=== PATIENT | female | born 1990 | race Caucasian/White ===

== ENCOUNTER → 2017-12-02 13:48 | Outpatient (CLI) | payer OTHER, SELFPAY ==
--- NOTE | 2017-12-02 13:52 | DI.RAD.S_ITS ---
PROCEDURE: XR LUMBAR SPINE MIN 4V INDICATIONS: L4-5 HNP with left lower extremity radiculopathy TECHNIQUE: 5 views of the lumbar spine were acquired. COMPARISON: None. FINDINGS: Bones: 5 nonrib-bearing vertebrae are present. There is mutli-level trace retrolithesis. There appears to be transitional anatomy with an lumbar like appearance of the first sacral vertebral body. There is moderate foraminal narrowing at L5-S1, mild to moderate at L4-5. Moderate to severe disc space narrowing at L4-5, L5-S1. No vertebral body compression fractures. No suspicious bony lesions. Soft tissues: Overlying bowel gas pattern is normal. No suspicious soft tissue calcifications. Oblique images: No pars defects. IMPRESSION: Degenerative changes are present at L4-5, L5-S1. Dictated by: Shelby Stacy M.D. on 12/02/2017 at 14:27 Approved by: Shelby Stacy M.D. on 12/02/2017 at 14:43
== END ==
PROVIDERS: PCP Internal Medicine; Visit Provider Physical Medicine & Rehabilitation
DX: M51.16 Intervertebral disc disorders with radiculopathy, lumbar region (principal); M51.36 Other intervertebral disc degeneration, lumbar region
CPT/HCPCS: 72110

== ENCOUNTER 2017-12-28 13:02 | Outpatient (CLI) | payer OTHER, SELFPAY ==
--- NOTE | 2017-12-28 | DI.RAD.S_ITS ---
PROCEDURE: PAIN L/S TRANSFORAMINAL INJECT INDICATIONS: RADICULOPATHY FINDINGS: Fluoroscopic spot filming was performed to verify placement of spinal needles at the left L4-5 level(s), as labeled on the films. Appropriate location(s) of the needle tip(s) was confirmed by injection of iodinated contrast. IMPRESSION: Successful left L4-5 needle tip localization for epidural steroid injection. Dictated by: Aric Sorensen M.D. on 12/28/2017 at 16:17 Approved by: Aric Sorensen M.D. on 12/28/2017 at 16:17
[2017-12-28 13:15] VITALS: BP 157/108; PULSE 77; RESP 16; TEMP 36.1; O2SAT 98
[2017-12-28 14:04] VITALS: BP 131/85; PULSE 77; RESP 16; O2SAT 100
[2017-12-28 14:09] VITALS: BP 148/92; PULSE 74; RESP 18; O2SAT 100
[2017-12-28 14:14] VITALS: BP 138/90; PULSE 73; RESP 16; O2SAT 100
--- NOTE | 2017-12-28 14:17 | P.PCN_ITS ---
Procedures Date/Time Date of procedure: 12/28/17 Time of procedure: 14:16 General Procedure description: PREOP DIAGNOSIS 1. FORMAINAL STENOSIS WITH LE SYMPTOMS POST OP DIAGNOSIS 1. FORMAINAL STENOSIS WITH LE SYMPTOMS PROCEDURES 1. FLUOROSCOPICALLY GUIDED CONTRAST CONTROLLED TRANSFORAMINAL EPIDURAL STEROID INJECTION - LEFT L4/5 PHYSICIAN: Angel Morgan DO INDICATIONS: Alannah is referred by MORGAN Garza for treatment of Foraminal Stenosis with Left LE Symptoms FINDINGS Foraminal Nerve Root Compression secondary to disc disease and facet hypertrophy DESCRIPTION OF PROCEDURE: Following denial of allergy and review of potential side effects and complications, including, but not necessarily limited to, infection, allergic reaction, local tissue breakdown, stroke, temporary or permanent nerve injury, paralysis, and possible , the patient indicated that the patient understood and agreed to proceed. An informed consent document was signed by the patient, witnessed by a nurse, and placed in the patient's chart. Additionally, other treatment options including medications, modalities, and physical therapy were reviewed with the patient. After review of previous anaesthesic history and IV conscious sedation the patient was deemed safe to proceed with todays procedure with IV conscious sedation as ASA class II designation. Safety time-out was performed to confirm patient ID, procedure to be performed and site of procedure. IV sedation was deemed not necessary during the course of the procedure while the patient remained responsive to all verbal commands In the prone position following sterile prep and drape of the lumbar region, the left L4/5 posterior neuroforamen was identified fluoroscopically. The skin was anesthetized via a 25-gauge 1.5-inch needle with 1% lidocaine solution. At this point, a 25-gauge 3.5-inch spinal needle was atraumatically introduced and advanced under fluoroscopic guidance through the posterior left L4/5 neuroforamen to approximately the anterior aspect of the canal. Depth was confirmed on lateral view. Following negative aspiration, injection of approximately 1.5 cc of Isovue 200 under live fluoroscopy in the AP view confirmed excellent flow along the nerve root, into the epidural space without vascular or intrathecal uptake observed Radiological data, including multiple fluoroscopic views of the lumbosacral spine, reveal a spinal needle at the left L4/5 posterior neuroforamen. Subsequent views show flow of contrast material flowing superiorly and inferiorly along the nerve root confirming epidural flow. Subsequently, a test dose of 1.5 cc of 1% lidocaine solution was administered and patient was observed for two minutes for signs or symptoms of complications , including abdominal pain, shortness of breath, bilateral upper or lower extremity weakness, nausea and vomiting, prior to steroid injection. At this point, a total of 3 cc or 20 mg of dexamethasone and 80mg Depo Medrol was injected without incident. The procedure tolerated the procedure well without signs or symptoms of complications prior to transfer to the recovery area continued monitoring without incident. The patient was then transferred to the recovery area where they were observed for an appropriate time after the injection. The patient reported a VAS score of 7 prior to the procedure and a post- procedure VAS of 0. Total Fluoroscopy Time: 20.9 seconds Total Conscious Sedation Time: 0min POST OP INSTRUCTIONS The patient was provided a Pain Log to continue to record their response to the target-specific procedure prior to follow-up visit with their referring physician. Additionally, specific post-injection care instructions and a contact number to our office were provided if concerns arise regarding possible complications associated with the procedure are suspected. Angel Morgan DO Complications: none
[2017-12-28 14:22] VITALS: BP 133/98; PULSE 88; RESP 16; O2SAT 100
[2017-12-28] MEDS: DEXAMETHASONE 10 MG/ML VIAL 20 MG INJ (14:31)
[2017-12-28] MEDS: methylPREDNISolone acetate 80 MG/ML VIAL INJ (14:31)
[2017-12-28] MEDS: BUPIVACAINE 0.25% (PF) VIAL 2 ML INJ (14:32)
[2017-12-28] MEDS: IOPAMIDOL 15 ML VIAL 3 ML INJ (14:32)
== END 2017-12-28 15:19 | disposition home or self-care (01) ==
LOC: RAD 13:02
PROVIDERS: PCP Internal Medicine; Visit Provider Physical Medicine & Rehabilitation
DX: M48.061 Spinal stenosis, lumbar region without neurogenic claudication (principal); M51.16 Intervertebral disc disorders with radiculopathy, lumbar region
CPT/HCPCS: 64483; J1040; J1100

== ENCOUNTER → 2018-01-27 09:10 | Outpatient (CLI) | payer OTHER, SELFPAY ==
[2018-01-27 09:57] LABS: Add Manual Diff / Slide Review NO; Basophils Percent Auto 0.3 % (0-2); Eosinophils Percent Auto 4.9 % (2-4); Hematocrit 39.7 % (36-46); Hemoglobin 13.1 g/dL (12.0-16.0); Lymphocytes Percent Auto 39.2 % (25-40); Mean Corpuscular HGB Conc 33.1 % (30-36); Mean Corpuscular Hemoglobin 27.1 PG (26-34); Mean Corpuscular Volume 81.9 fL (80-100); Monocytes Percent Auto 6.3 % (3-14); Neutrophils Absolute Auto 4400 /uL (3000-5900); Neutrophils Percent Auto 49.3 % (50-75); Platelet Count 317 X10^3/uL (150-400); Red Blood Cell Count 4.84 X10^6/uL (4.0-5.2); Red Cell Distribution Width 14.3 % (11.6-14.8)
[2018-01-27 10:12] LABS: Alanine Aminotransferase 26 IU/L (9-52); Albumin 4.5 g/dL (3.5-5.0); Albumin Globulin Ratio 1.4 (1.0-2.8); Alkaline Phosphatase 71 U/L (38-126); Aspartate Aminotransferase 21 IU/L (14-36); Bilirubin Total 0.3 mg/dL (0.2-1.3); Blood Urea Nitrogen 9 mg/dL (7-17); Calcium 9.1 mg/dL (8.4-10.2); Carbon Dioxide 31 mmol/L (22-32); Chloride 104 mmol/L (98-107); Cholesterol 174 mg/dL (140-199); Estimated Glomerular Filt Rate > 60.0 mL/min (>60); Globulin 3.2 g/dL (1.7-4.1); Glucose 99 mg/dL (70-100); HDL Cholesterol 49 mg/dL (40-60); HEMOLYSIS < 15 (0-50); LDL Cholesterol Calculated 108 mg/dL (<100); Potassium 4.1 mmol/L (3.4-5.1); Sodium 145 mmol/L (137-145); Total Protein 7.7 g/dL (6.3-8.2); Triglycerides 87 mg/dL (35-150)
[2018-01-27 11:01] LABS: Thyroid Stimulating Hormone 2.58 uIU/mL (0.47-4.68)
== END ==
PROVIDERS: PCP Internal Medicine; Visit Provider Internal Medicine
DX: N94.6 Dysmenorrhea, unspecified (principal); R63.5 Abnormal weight gain
CPT/HCPCS: 36415; 80053; 80061; 84443; 85025

== ENCOUNTER → 2018-03-03 15:00 | Outpatient (CLI) | payer OTHER, SELFPAY | PROVIDERS: PCP Internal Medicine | DX: Z23 Encounter for immunization (principal) | CPT/HCPCS: 90471; 90686 ==

== ENCOUNTER 2018-09-22 11:00 | Outpatient (RCR) | payer OTHER, SELFPAY ==
--- NOTE | 2018-03-18 12:34 | PT.OPPOC ---
Current Diagnoses Other intervertebral disc displacement, lumbar region (03/16/18) Radiculopathy, lumbosacral region (03/16/18) Provider Visit Care Team Role Provider Type MORGAN Zavala Primary Care Provider Advanced Special Education Tutor Specialty: Family Practice Address: [address] [place] [address], [id number] Email: [email or web address] Angel Morgan DO Attending Provider Physician Specialty: Physiatry Pain Management Address: [address] [place] [address], [phone] Email: Plan Of Care PT-OP-T Assessment and Plan Start: 03/16/18 10:32 Freq: Status: Active Protocol: Document 03/16/18 10:33 SAK (Rec: 03/16/18 16:38 SAK [id number]) Physical Therapy Assessment Rehab Potential Rehabilitation Potential Good Evaluation Complexity Number of Personal Factors/Comorbidities 1-2 Number of Body Systems Impaired 3 Clinical Presentation at Evaluation Evolving Impairments Impairments Activity Tolerance Pain Posture ROM Strength Goals 4 Impairment ROM and strength Short Term Goal (STG) Patient will be compliant with a HEP for purposes of ROM, and strengthening focused on core stabilization STG Duration 6 wks Business Integration Analyst Goal (LTG) Patient to demonstrate WNL ROM and strength in trunk and LE' s and demonstrate good dynamic lumbar stabilization statically and dynamically with function LTG Duration 3 months 3 Impairment Oswestry disability index score 26% Short Term Goal (STG) Decrease score to 13% STG Duration 6 wks Business Integration Analyst Goal (LTG) Decrease Oswestry score to no greater than 10% LTG Duration 3 months 2 Impairment Activity tolerance Short Term Goal (STG) Patient will be able to go grocery shopping without an increase in pain STG Duration 6 wks Senior Living Goal (LTG) Patient will be able to stand or walk for 1 hour without an increase in pain and resume prior activities without an increase in pain LTG Duration 3 months 1 Impairment pain Short Term Goal (STG) Decrease pain to no greater than 4/10 STG Duration 6 wks Senior Living Goal (LTG) Decrease pain to no greater than 2/10 LTG Duration 3 months Assessment Summary Assessment Patient is a 27 y/o female s/p fall in 2015 with persistent LBP with radicular symptoms. Imaging in November 2017 shows degenerative changes L4-5 and L5-S1, disc bulge L3-4 and L4- 5, transitional anatomy with sacralization of L5 bilateral neuroforaminal narrowing and mild spinal canal narrowing. Experienced some decrease in symptoms with manual traction, feel she may benefit from mechanical traction. Also feel she will benefit from PT for therapeutic exercises to address deficits in ROM, strength, core stabilization, and activity tolerance and instruction in a HEP, modalities and manual therapy techniques as indicated. Physical Therapy Plan Frequency and Duration Frequency of Treatment 2x/Week Duration of Treatment 3 months Plan of Care Start Date 03/16/18 Plan of Care End Date 06/16/18 Therapeutic Interventions Therapeutic Interventions Aquatic Therapy Home Exercise Program Manual Therapy Patient/Caregiver Education Self-Care/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 Soft Tissue Mobilization Taping Therapeutic Activities Therapeutic Exercises Modalities Cold Pack/Ice Massage Electric Stimulation Hot Packs Traction- Mechanical Ultrasound Next Visit Focus/Plan Next Note Type Treatment Note Next Visit Plan Ultrasound, mechanical traction. Initiate core strengthening, nerve glides. Plan of Care Dates Plan of Care Start Date 03/16/18 Plan of Care End Date 06/16/18 Please Sign and Return: I have reviewed this Plan of Care and certify that the skilled therapy services above are required to meet the patient?s needs. Physician Signature Date Printed Name and Credentials Clinical Instructor Signature Printed Name and Credentials
--- NOTE | 2018-03-18 12:34 | PT.OIE ---
Current Diagnoses Other intervertebral disc displacement, lumbar region (03/16/18) Radiculopathy, lumbosacral region (03/16/18) Past Medical History (Last Updated 02/04/18 @ 21:24 by Vivienne Vyas) Acne (Chronic ~2000) Eczema (Chronic) Headache (Chronic ~2010) History of recurrent ear infection (Chronic) Migraines (Chronic ~2010) Chicken pox (Resolved ~1995) Seasonal allergies (Resolved) Past Surgical History (Last Updated 02/04/18 @ 21:24 by Vivienne Vyas) Anesthesia (Resolved) History of third molar tooth extraction (Resolved ~2008) Provider Visit Care Team Role Provider Type MORGAN Zavala Primary Care Provider [facility] [employer] Service Worker Specialty: Family Practice Address: [address] [place] [id number] Email: [email or web address] Angel Morgan DO Attending Provider Physician Specialty: Physiatry Pain Management Address: [address] [place] [address], [id number] Email: Physical Therapy Initial Evaluation PT-OP-A Visit Information Start: 03/16/18 10:32 Freq: Status: Active Protocol: Document 03/16/18 10:33 SAK (Rec: 03/16/18 16:38 [facility] [id number]) Out-Patient Physical Therapy Visit Information Visit Information Visit Type Initial Evaluation Visit Note Visit Start Time 10:30 Visit Stop Time 11:30 Total Visit Minutes 55 Visit Number 1 Number of PSYCHOTHERAPIST Visits 0 Evaluation Information Evaluation Date 03/16/18 PT-OP-B Current Condition Start: 03/16/18 10:32 Freq: Status: Active Protocol: Document 03/16/18 10:33 SAK (Rec: 03/16/18 10:40 SAK [id number]) Current Condition History of Current Condition Onset Date 2015 Current Complaints persistent, function-limiting LB with radicular symptoms into left LE History of Current Condition Accident 2016; fell in shower with resulting LBP. Poor response to PT at that time. Worst pain with standing, walking. Unable to go grocery shopping or do other activity on feet without increase in pain. [place] [facility] a couple days ago on day of last steoid medication. Using heat, not ice. Activity level minimal. Prior Treatments and Tests Prior PT, had increasing left sided pain. Hadn't had imaging. MRI and x-ray; bulging disc L45. 2 injections, last one December 2017; somewhat helpful in decreasing numbness and tingling down left leg. Also taking oral steroids; just finished. Has had 2 chiropractort appointments; increase in right-sided symptoms. Future Testing and Treatments Planned No further physician appointments scheduled at this time. 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 Intensity 8 Scale Used Numeric (1 - 10) Description Chronic Radiating Shooting Tightness Frequency Frequent Radiating Location posterior left thigh to knee Pain Aggravating Factors Exercise Standing Walking Other Pain Alleviating Factors 90/90 position, squat, seated leaning forward Home Pain Medication Use Pain Medications Used No Pain Behaviors Pain Behaviors Facial Grimacing Guarding Wincing PT-OP-F Manual Assessment Start: 03/16/18 10:32 Freq: Status: Active Protocol: Document 03/16/18 10:33 SAK (Rec: 03/16/18 16:38 [facility] [id number]) Manual Assessments Soft Tissue Assessment Soft Tissue Mobility Assessment Tender to palpation left lumbar spine L3-S1 Other Manual Assessments Other Manual Assessments tender to palpation left lumbar region PT-OP-G Mobility & Gait Start: 03/16/18 10:32 Freq: Status: Active Protocol: Document 03/16/18 10:33 SAK (Rec: 03/16/18 16:38 [facility] [id number]) OP Mobility Evaluation Bed Mobility Rolling indep Supine to and from Sit indep Transfers Sit to Stand indep OP Gait Assessment Gait Gait Assistance Required: Independent Assistive Devices Assistive Device None Gait Deviations General Gait Pattern Antalgic Factors Limiting Gait Function Factors Limiting Gait Function Pain PT-OP-H Neuro Start: 03/16/18 10:32 Freq: Status: Active Protocol: Document 03/16/18 10:33 SAK (Rec: 03/16/18 16:38 [facility] [id number]) Sensation Evaluation Gross Sensation Gross Sensation WNL Comments Summary Comments denies n/t or weakness, denies drop foot or leg giving way PT-OP-J Posture/Palpation/Skin Start: 03/16/18 10:32 Freq: Status: Active Protocol: Document 03/16/18 10:33 SAK (Rec: 03/16/18 16:38 [facility] [id number]) Posture Evaluation Position Standing T-Spine Posture Flattened L-Spine Posture Increased Lordosis Pelvis Posture (L) Iliac Crest Superior Hip Posture (R) Externally Rotated PT-OP-K Range of Motion Start: 03/16/18 10:32 Freq: Status: Active Protocol: Document 03/16/18 10:33 SAK (Rec: 03/16/18 16:38 [facility] [id number]) Lumbar Spine Range of Motion Lumbar Spine Active Testing Position standing Flexion 40 Extension 10 Rotation Left 45 Rotation Right 45 Lateral Flexion Left 50 Lateral Flexion Right 50 ROM Limitations Pain Comments observable instability Hip Goniometric Range of Motion Hip Measured in Degrees Left Hip ROM WFL No Straight Leg Raise 30 Right Hip ROM WFL No Straight Leg Raise 40 Hip ROM Limitations Hip ROM Limitations Pain Comments pain both left and right with active SLR, muscle tightness with PSLR PT-OP-L Special Tests Start: 03/16/18 10:32 Freq: Status: Active Protocol: Document 03/16/18 10:33 SAK (Rec: 03/16/18 16:38 SAK [id number]) Special Tests Lumbar Spine Special Tests Manual Traction Test Results relieving Straight Leg Raise Test Results positive for pain Stork Test Test Results negative mireille Compression Test Results increased pain PT-OP-M Strength Start: 03/16/18 10:32 Freq: Status: Active Protocol: Document 03/16/18 10:33 SAK (Rec: 10/25/18 16:38 [facility] [id number]) Trunk Strength Trunk Manual Muscle Testing Testing Position Supine Core Stabilization poor Hip Strength Hip Manual Muscle Testing Left Flexion (L2) 4+ Good+ Extension (S1) 3+ Fair+ Abduction 4- Good- External Rotation 4- Good- Internal Rotation 4+ Good+ Right Flexion (L2) 4+ Good+ Extension (S1) 4- Good- Abduction 4- Good- External Rotation 4 Good Internal Rotation 4+ Good+ Knee Strength Knee Manual Muscle Testing Left Flexion (S2) 4 Good Extension (L3) 4+ Good+ Right Flexion (S2) 4 Good Extension (L3) 4+ Good+ Ankle/Foot Strength Ankle and Foot Manual Muscle Testing Left Dorsiflexion (L4) 5 Normal Plantarflexion (S1) 5 Normal Right Dorsiflexion (L4) 5 Normal Plantarflexion (S1) 5 Normal Toe Strength Toe Manual Muscle Testing Left Great Toe Extension 4+ Good+ Right Great Toe Extension 4+ Good+ PT-OP-Q Treatments Start: 03/16/18 10:32 Freq: Status: Active Protocol: Document 03/16/18 10:33 [facility] (Rec: 03/16/18 16:38 [facility] [id number]) Self-Care/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 Treatment Education Patient Education Pain Management Posture Other Education use of 90/90 positioning for pain relief PT-OP-R Modalities Start: 03/16/18 10:32 Freq: Status: Active Protocol: Document 03/16/18 10:33 [facility] (Rec: 03/16/18 16:38 [facility] [id number]) Electric Stimulation Electric Stimulation Interferential Current (IFC) Body Location bilateral lumbar paraspinals Duration (Minutes) 15 Intensity 15 Target/Sweep Sweep Combined With Heat/Cold Cold Pack Comments 90/90 PT-OP-T Assessment and Plan Start: 03/16/18 10:32 Freq: Status: Active Protocol: Document 03/16/18 10:33 [facility] (Rec: 03/16/18 16:38 [facility] [id number]) Physical Therapy Assessment Rehab Potential Rehabilitation Potential Good Evaluation Complexity Number of Personal Factors/Comorbidities 1-2 Number of Body Systems Impaired 3 Clinical Presentation at Evaluation Evolving Impairments Impairments Activity Tolerance Pain Posture ROM Strength Goals 4 Impairment ROM and strength Short Term Goal (STG) Patient will be compliant with a HEP for purposes of ROM, and strengthening focused on core stabilization STG Duration 6 wks [facility] Goal (LTG) Patient to demonstrate WNL ROM and strength in trunk and LE' s and demonstrate good dynamic lumbar stabilization statically and dynamically with function LTG Duration 3 months 3 Impairment Oswestry disability index score 26% Short Term Goal (STG) Decrease score to 13% STG Duration 6 wks [facility] Goal (LTG) Decrease Oswestry score to no greater than 10% LTG Duration 3 months 2 Impairment Activity tolerance Short Term Goal (STG) Patient will be able to go grocery shopping without an increase in pain STG Duration 6 wks [facility] Goal (LTG) Patient will be able to stand or walk for 1 hour without an increase in pain and resume prior activities without an increase in pain LTG Duration 3 months 1 Impairment pain Short Term Goal (STG) Decrease pain to no greater than 4/10 STG Duration 6 wks Structures Mechanic Goal (LTG) Decrease pain to no greater than 2/10 LTG Duration 3 months Assessment Summary Assessment Patient is a 27 y/o female s/p fall in 2015 with persistent LBP with radicular symptoms. Imaging in November 2017 shows degenerative changes L4-5 and L5-S1, disc bulge L3-4 and L4- 5, transitional anatomy with sacralization of L5 bilateral neuroforaminal narrowing and mild spinal canal narrowing. Experienced some decrease in symptoms with manual traction, feel she may benefit from mechanical traction. Also feel she will benefit from PT for therapeutic exercises to address deficits in ROM, strength, core stabilization, and activity tolerance and instruction in a HEP, modalities and manual therapy techniques as indicated. Physical Therapy Plan Frequency and Duration Frequency of Treatment 2x/Week Duration of Treatment 3 months Plan of Care Start Date 03/16/18 Plan of Care End Date 06/16/18 Therapeutic Interventions Therapeutic Interventions Aquatic Therapy Home Exercise Program Manual Therapy Patient/Caregiver Education Self-Care/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 Soft Tissue Mobilization Taping Therapeutic Activities Therapeutic Exercises Modalities Cold Pack/Ice Massage Electric Stimulation Hot Packs Traction- Mechanical Ultrasound Next Visit Focus/Plan Next Note Type Treatment Note Next Visit Plan Ultrasound, mechanical traction. Initiate core strengthening, nerve glides.
--- NOTE | 2018-03-24 09:45 | PT.OTN ---
Current Diagnoses Other intervertebral disc displacement, lumbar region (03/24/18) Radiculopathy, lumbosacral region (03/24/18) Physical Therapy Treatment Note PT-OP-A Visit Information Start: 03/16/18 10:32 Freq: Status: Active Protocol: Document 03/24/18 09:45 DLM (Rec: 03/24/18 17:34 DLM [id number]) Out-Patient Physical Therapy Visit Information Visit Information Visit Type Treatment Note Visit Start Time 09:45 Visit Stop Time 10:40 Total Visit Minutes 55 Visit Number 2 Number of [employer] Visits 0 Evaluation Information Evaluation Date 03/16/18 PT-OP-B Current Condition Start: 03/16/18 10:32 Freq: Status: Active Protocol: Document 03/16/18 10:33 SAK (Rec: 03/16/18 10:40 SAK [id number]) Current Condition History of Current Condition Onset Date 2015 Current Complaints persistent, function-limiting LB with radicular symptoms into left LE History of Current Condition Accident 2015; fell in shower with resulting LBP. Poor response to PT at that time. Worst pain with standing, walking. Unable to go grocery shopping or do other activity on feet without increase in pain. [place] best a couple days ago on day of last steoid medication. Using heat, not ice. Activity level minimal. Prior Treatments and Tests Prior PT, had increasing left sided pain. Hadn't had imaging. MRI and x-ray; bulging disc L45. 2 injections, last one December 2017; somewhat helpful in decreasing numbness and tingling down left leg. Also taking oral steroids; just finished. Has had 2 chiropractort appointments; increase in right-sided symptoms. Future Testing and Treatments Planned No further physician appointments scheduled at this time. 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 She has attended 2 visits. She will have an interruption in her PT visits due to her availability; will be out about a week. PT-OP-F Manual Assessment Start: 03/16/18 10:32 Freq: Status: Active Protocol: Document 03/16/18 10:33 SAK (Rec: 03/16/18 16:38 SAK [id number]) Manual Assessments Soft Tissue Assessment Soft Tissue Mobility Assessment Tender to palpation left lumbar spine L3-S1 Other Manual Assessments Other Manual Assessments tender to palpation left lumbar region PT-OP-G Mobility & Gait Start: 03/16/18 10:32 Freq: Status: Active Protocol: Document 03/16/18 10:33 SAK (Rec: 03/16/18 16:38 SAK [id number]) OP Mobility Evaluation Bed Mobility Rolling indep Supine to and from Sit indep Transfers Sit to Stand indep OP Gait Assessment Gait Gait Assistance Required: Independent Assistive Devices Assistive Device None Gait Deviations General Gait Pattern Antalgic Factors Limiting Gait Function Factors Limiting Gait Function Pain PT-OP-H Neuro Start: 03/16/18 10:32 Freq: Status: Active Protocol: Document 03/16/18 10:33 SAK (Rec: 03/16/18 16:38 SAK [id number]) Sensation Evaluation Gross Sensation Gross Sensation WNL Comments Summary Comments denies n/t or weakness, denies drop foot or leg giving way PT-OP-J Posture/Palpation/Skin Start: 03/16/18 10:32 Freq: Status: Active Protocol: Document 03/16/18 10:33 SAK (Rec: 03/16/18 16:38 SAK [id number]) Posture Evaluation Position Standing T-Spine Posture Flattened L-Spine Posture Increased Lordosis Pelvis Posture (L) Iliac Crest Superior Hip Posture (R) Externally Rotated PT-OP-K Range of Motion Start: 03/16/18 10:32 Freq: Status: Active Protocol: Document 03/16/18 10:33 SAK (Rec: 03/16/18 16:38 SAK [id number]) Lumbar Spine Range of Motion Lumbar Spine Active Testing Position standing Flexion 40 Extension 10 Rotation Left 45 Rotation Right 45 Lateral Flexion Left 50 Lateral Flexion Right 50 ROM Limitations Pain Comments observable instability Hip Goniometric Range of Motion Hip Measured in Degrees Left Hip ROM WFL No Straight Leg Raise 30 Right Hip ROM WFL No Straight Leg Raise 40 Hip ROM Limitations Hip ROM Limitations Pain Comments pain both left and right with active SLR, muscle tightness with PSLR PT-OP-L Special Tests Start: 03/16/18 10:32 Freq: Status: Active Protocol: Document 03/16/18 10:33 SAK (Rec: 03/16/18 16:38 SAK [id number]) Special Tests Lumbar Spine Special Tests Manual Traction Test Results relieving Straight Leg Raise Test Results positive for pain Stork Test Test Results negative mireille Compression Test Results increased pain PT-OP-M Strength Start: 03/16/18 10:32 Freq: Status: Active Protocol: Document 03/16/18 10:33 SAK (Rec: 03/16/18 16:38 [facility] [id number]) Trunk Strength Trunk Manual Muscle Testing Testing Position Supine Core Stabilization poor Hip Strength Hip Manual Muscle Testing Left Flexion (L2) 4+ Good+ Extension (S1) 3+ Fair+ Abduction 4- Good- External Rotation 4- Good- Internal Rotation 4+ Good+ Right Flexion (L2) 4+ Good+ Extension (S1) 4- Good- Abduction 4- Good- External Rotation 4 Good Internal Rotation 4+ Good+ Knee Strength Knee Manual Muscle Testing Left Flexion (S2) 4 Good Extension (L3) 4+ Good+ Right Flexion (S2) 4 Good Extension (L3) 4+ Good+ Ankle/Foot Strength Ankle and Foot Manual Muscle Testing Left Dorsiflexion (L4) 5 Normal Plantarflexion (S1) 5 Normal Right Dorsiflexion (L4) 5 Normal Plantarflexion (S1) 5 Normal Toe Strength Toe Manual Muscle Testing Left Great Toe Extension 4+ Good+ Right Great Toe Extension 4+ Good+ PT-OP-Q Treatments Start: 03/16/18 10:32 Freq: Status: Active Protocol: Document 03/24/18 09:45 DLM (Rec: 03/24/18 17:34 DLM [id number]) Therapeutic Exercises Supine Exercises 2 Supine Exercise Name Hooklying hip abduction Resistance L2 exercise band Reps/Minutes x 10 reps 1 Supine Exercise Name Hooklying single knee drop outs with core stabalization Side bilateral Reps/Minutes x 10 reps Lower trunk rotation Comments stopped exercise due to increase pain Single knee to chest Side bilateral Reps/Minutes x 5 reps Double Knee to Chest Reps/Minutes x 3 reps Self-Care/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 Treatment Education Patient Education Pain Management PT-OP-R Modalities Start: 03/16/18 10:32 Freq: Status: Active Protocol: Document 03/24/18 09:45 DLM (Rec: 03/24/18 17:34 DLM [id number]) Electric Stimulation Electric Stimulation Interferential Current (IFC) Body Location bilateral lumbar paraspinals Duration (Minutes) 15 Target/Sweep Sweep High/Low High Patient Position Hooklying Combined With Heat/Cold Cold Pack Comments 90/90 performed after traction Spinal Traction Traction Treatment Lumbar Method Mechanical Intermittent Patient Position Hooklying Force Applied (Pounds) 60 Intermittent Time On (Seconds) 30 Intermittent Time Off (Seconds) 10 Duration of Treatment (Minutes) 15 Heating Pad Applied No: pt declined Traction Treatment Comment 20-60 pounds intermittent PT-OP-T Assessment and Plan Start: 03/16/18 10:32 Freq: Status: Active Protocol: Document 03/24/18 09:45 DLM (Rec: 03/24/18 17:34 DL [id number]) Physical Therapy Assessment Impairments Impairments Activity Tolerance Functional Activities Pain Posture ROM Soft Tissue Mobility Strength Goals 4 Impairment ROM and strength Short Term Goal (STG) Patient will be compliant with a HEP for purposes of ROM, and strengthening focused on core stabilization STG Duration 6 wks Mcc Goal (LTG) Patient to demonstrate WNL ROM and strength in trunk and LE' s and demonstrate good dynamic lumbar stabilization statically and dynamically with function LTG Duration 3 months 3 Impairment Oswestry disability index score 26% Short Term Goal (STG) Decrease score to 13% STG Duration 6 wks Certified Medication Technician Goal (LTG) Decrease Oswestry score to no greater than 10% LTG Duration 3 months 2 Impairment Activity tolerance Short Term Goal (STG) Patient will be able to go grocery shopping without an increase in pain STG Duration 6 wks Certified Medication Technician Goal (LTG) Patient will be able to stand or walk for 1 hour without an increase in pain and resume prior activities without an increase in pain LTG Duration 3 months 1 Impairment pain Short Term Goal (STG) Decrease pain to no greater than 4/10 STG Duration 6 wks Certified Medication Technician Goal (LTG) Decrease pain to no greater than 2/10 LTG Duration 3 months Assessment Summary Assessment She tolerated treatment well over-all. Progressed her exercises slowly due to pain. She reports no increased pain with traction. She reports the Estim helps with the pain. Will need to make sure she has a HEP to do while she misses a week of therapy. Physical Therapy Plan Frequency and Duration Frequency of Treatment 2x/Week Duration of Treatment 3 months Plan of Care Start Date 03/16/18 Plan of Care End Date 06/16/18 Therapeutic Interventions Therapeutic Interventions Aquatic Therapy Home Exercise Program Manual Therapy Patient/Caregiver Education Self-Care/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 Soft Tissue Mobilization Taping Therapeutic Activities Therapeutic Exercises Modalities Cold Pack/Ice Massage Electric Stimulation Hot Packs Traction- Mechanical Ultrasound Next Visit Focus/Plan Next Note Type Treatment Note Next Visit Plan advance core strengthening, nerve glides
--- NOTE | 2018-03-28 15:15 | PT.OTN ---
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 Poor response to PT at that time. Worst pain with standing, walking. Unable to go grocery shopping or do other activity on feet without increase in pain. [place] best a couple days ago on day of last steoid medication. Using heat, not ice. Activity level minimal. Prior Treatments and Tests Prior PT, had increasing left sided pain. Hadn't had imaging. MRI and x-ray; bulging disc L45. 2 injections, last one December 2017; somewhat helpful in decreasing numbness and tingling down left leg. Also taking oral steroids; just finished. Has had 2 chiropractort appointments; increase in right-sided symptoms. Future Testing and Treatments Planned No further physician appointments scheduled at this time. 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 Doing stretches at home daily. PT-OP-F Manual Assessment Start: 03/16/18 10:32 Freq: Status: Active Protocol: Document 03/16/18 10:33 SAK (Rec: 03/16/18 16:38 SAK [id number]) Manual Assessments Soft Tissue Assessment Soft Tissue Mobility Assessment Tender to palpation left lumbar spine L3-S1 Other Manual Assessments Other Manual Assessments tender to palpation left lumbar region PT-OP-G Mobility & Gait Start: 03/16/18 10:32 Freq: Status: Active Protocol: Document 03/16/18 10:33 SAK (Rec: 03/16/18 16:38 SAK [id number]) OP Mobility Evaluation Bed Mobility Rolling indep Supine to and from Sit indep Transfers Sit to Stand indep OP Gait Assessment Gait Gait Assistance Required: Independent Assistive Devices Assistive Device None Gait Deviations General Gait Pattern Antalgic Factors Limiting Gait Function Factors Limiting Gait Function Pain PT-OP-H Neuro Start: 03/16/18 10:32 Freq: Status: Active Protocol: Document 03/16/18 10:33 SAK (Rec: 03/16/18 16:38 SAK [id number]) Sensation Evaluation Gross Sensation Gross Sensation WNL Comments Summary Comments denies n/t or weakness, denies drop foot or leg giving way PT-OP-J Posture/Palpation/Skin Start: 03/16/18 10:32 Freq: Status: Active Protocol: Document 03/16/18 10:33 SAK (Rec: 03/16/18 16:38 SAK [id number]) Posture Evaluation Position Standing T-Spine Posture Flattened L-Spine Posture Increased Lordosis Pelvis Posture (L) Iliac Crest Superior Hip Posture (R) Externally Rotated PT-OP-K Range of Motion Start: 03/16/18 10:32 Freq: Status: Active Protocol: Document 03/16/18 10:33 SAK (Rec: 03/16/18 16:38 SAK [id number]) Lumbar Spine Range of Motion Lumbar Spine Active Testing Position standing Flexion 40 Extension 10 Rotation Left 45 Rotation Right 45 Lateral Flexion Left 50 Lateral Flexion Right 50 ROM Limitations Pain Comments observable instability Hip Goniometric Range of Motion Hip Measured in Degrees Left Hip ROM WFL No Straight Leg Raise 30 Right Hip ROM WFL No Straight Leg Raise 40 Hip ROM Limitations Hip ROM Limitations Pain Comments pain both left and right with active SLR, muscle tightness with PSLR PT-OP-L Special Tests Start: 03/16/18 10:32 Freq: Status: Active Protocol: Document 03/16/18 10:33 SAK (Rec: 03/16/18 16:38 SAK [id number]) Special Tests Lumbar Spine Special Tests Manual Traction Test Results relieving Straight Leg Raise Test Results positive for pain Stork Test Test Results negative mireille Compression Test Results increased pain PT-OP-M Strength Start: 03/16/18 10:32 Freq: Status: Active Protocol: Document 03/16/18 10:33 SAK (Rec: 03/16/18 16:38 SAK [id number]) Trunk Strength Trunk Manual Muscle Testing Testing Position Supine Core Stabilization poor Hip Strength Hip Manual Muscle Testing Left Flexion (L2) 4+ Good+ Extension (S1) 3+ Fair+ Abduction 4- Good- External Rotation 4- Good- Internal Rotation 4+ Good+ Right Flexion (L2) 4+ Good+ Extension (S1) 4- Good- Abduction 4- Good- External Rotation 4 Good Internal Rotation 4+ Good+ Knee Strength Knee Manual Muscle Testing Left Flexion (S2) 4 Good Extension (L3) 4+ Good+ Right Flexion (S2) 4 Good Extension (L3) 4+ Good+ Ankle/Foot Strength Ankle and Foot Manual Muscle Testing Left Dorsiflexion (L4) 5 Normal Plantarflexion (S1) 5 Normal Right Dorsiflexion (L4) 5 Normal Plantarflexion (S1) 5 Normal Toe Strength Toe Manual Muscle Testing Left Great Toe Extension 4+ Good+ Right Great Toe Extension 4+ Good+ PT-OP-Q Treatments Start: 03/16/18 10:32 Freq: Status: Active Protocol: Document 03/28/18 15:01 SA (Rec: 03/28/18 15:15 SA [email or web address]) Therapeutic Exercises Supine Exercises pelvic tilts Reps/Minutes 10x Comments focus on control 2 Supine Exercise Name Hooklying hip abduction Resistance L2 exercise band Reps/Minutes x 10 reps 1 Supine Exercise Name Hooklying single knee drop outs with core stabalization Side bilateral Reps/Minutes x 10 reps Single knee to chest Side bilateral Reps/Minutes x 5 reps Double Knee to Chest Reps/Minutes x 3 reps Sidelying Exercises clamshells Side bilateral Reps/Minutes 15 x each PT-OP-R Modalities Start: 03/16/18 10:32 Freq: Status: Active Protocol: Document 03/28/18 15:01 (Rec: 03/28/18 15:15 [email or web address]) Electric Stimulation Electric Stimulation Interferential Current (IFC) Body Location bilateral lumbar paraspinals Duration (Minutes) 15 Target/Sweep Sweep High/Low High Patient Position Supine Combined With Heat/Cold Cold Pack Comments 90/90 completed after traction Spinal Traction Traction Treatment Lumbar Method Mechanical Intermittent Patient Position Hooklying Force Applied (Pounds) 60 Intermittent Time On (Seconds) 30 Intermittent Time Off (Seconds) 10 Duration of Treatment (Minutes) 15 Traction Treatment Comment 20-60 pounds intermittent PT-OP-T Assessment and Plan Start: 03/16/18 10:32 Freq: Status: Active Protocol: Document 03/28/18 15:01 (Rec: 03/28/18 15:15 [email or web address]) Physical Therapy Assessment Progress Towards Goals Progress Towards Goals Progressing Toward Goals Assessment Summary Assessment Slow exercise progression using pain as guide and educated to stay within tolerance. Re-assess traction next visit. Pt to monitor symptoms after treatment today and report back next visit. Physical Therapy Plan Next Visit Focus/Plan Next Note Type Treatment Note Next Visit Plan Response to mechanical/lumbar traction, progress core strengthening and response to HEP.
--- NOTE | 2018-04-11 16:04 | PT.OTN ---
Current Diagnoses Other intervertebral disc displacement, lumbar region (04/11/18) Radiculopathy, lumbosacral region (04/11/18) Physical Therapy Treatment Note PT-OP-A Visit Information Start: 03/16/18 10:32 Freq: Status: Active Protocol: Document 04/11/18 15:15 DCW (Rec: 04/11/18 16:04 DCW [id number]) Out-Patient Physical Therapy Visit Information Visit Information Visit Type Treatment Note Visit Start Time 15:15 Visit Stop Time 16:00 Total Visit Minutes 50 Visit Number 4 Number of ELECTRICAL ACCESSORIES ASSEMBLER Visits 0 Evaluation Information Evaluation Date 03/16/18 PT-OP-B Current Condition Start: 03/16/18 10:32 Freq: Status: Active Protocol: Document 03/16/18 10:33 SAK (Rec: 03/16/18 10:40 SAK [id number]) Current Condition History of Current Condition Onset Date 2015 Current Complaints persistent, function-limiting LB with radicular symptoms into left LE History of Current Condition Accident 2015; fell in shower with resulting LBP. Poor response to PT at that time. Worst pain with standing, walking. Unable to go grocery shopping or do other activity on feet without increase in pain. [place] best a couple days ago on day of last steoid medication. Using heat, not ice. Activity level minimal. Prior Treatments and Tests Prior PT, had increasing left sided pain. Hadn't had imaging. MRI and x-ray; bulging disc L45. 2 injections, last one December 2017; somewhat helpful in decreasing numbness and tingling down left leg. Also taking oral steroids; just finished. Has had 2 chiropractort appointments; increase in right-sided symptoms. Future Testing and Treatments Planned No further physician appointments scheduled at this time. 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 Pt states she would still like to try it again. PT-OP-F Manual Assessment Start: 03/16/18 10:32 Freq: Status: Active Protocol: Document 03/16/18 10:33 SAK (Rec: 03/16/18 16:38 SAK [id number]) Manual Assessments Soft Tissue Assessment Soft Tissue Mobility Assessment Tender to palpation left lumbar spine L3-S1 Other Manual Assessments Other Manual Assessments tender to palpation left lumbar region PT-OP-G Mobility & Gait Start: 03/16/18 10:32 Freq: Status: Active Protocol: Document 03/16/18 10:33 SAK (Rec: 03/16/18 16:38 SAK [id number]) OP Mobility Evaluation Bed Mobility Rolling indep Supine to and from Sit indep Transfers Sit to Stand indep OP Gait Assessment Gait Gait Assistance Required: Independent Assistive Devices Assistive Device None Gait Deviations General Gait Pattern Antalgic Factors Limiting Gait Function Factors Limiting Gait Function Pain PT-OP-H Neuro Start: 03/16/18 10:32 Freq: Status: Active Protocol: Document 03/16/18 10:33 SAK (Rec: 03/16/18 16:38 SAK [id number]) Sensation Evaluation Gross Sensation Gross Sensation WNL Comments Summary Comments denies n/t or weakness, denies drop foot or leg giving way PT-OP-J Posture/Palpation/Skin Start: 03/16/18 10:32 Freq: Status: Active Protocol: Document 03/16/18 10:33 SAK (Rec: 03/16/18 16:38 SAK [id number]) Posture Evaluation Position Standing T-Spine Posture Flattened L-Spine Posture Increased Lordosis Pelvis Posture (L) Iliac Crest Superior Hip Posture (R) Externally Rotated PT-OP-K Range of Motion Start: 03/16/18 10:32 Freq: Status: Active Protocol: Document 03/16/18 10:33 SAK (Rec: 03/16/18 16:38 SAK [id number]) Lumbar Spine Range of Motion Lumbar Spine Active Testing Position standing Flexion 40 Extension 10 Rotation Left 45 Rotation Right 45 Lateral Flexion Left 50 Lateral Flexion Right 50 ROM Limitations Pain Comments observable instability Hip Goniometric Range of Motion Hip Measured in Degrees Left Hip ROM WFL No Straight Leg Raise 30 Right Hip ROM WFL No Straight Leg Raise 40 Hip ROM Limitations Hip ROM Limitations Pain Comments pain both left and right with active SLR, muscle tightness with PSLR PT-OP-L Special Tests Start: 03/16/18 10:32 Freq: Status: Active Protocol: Document 03/16/18 10:33 SAK (Rec: 03/16/18 16:38 SAK [id number]) Special Tests Lumbar Spine Special Tests Manual Traction Test Results relieving Straight Leg Raise Test Results positive for pain Stork Test Test Results negative mireille Compression Test Results increased pain PT-OP-M Strength Start: 03/16/18 10:32 Freq: Status: Active Protocol: Document 03/16/18 10:33 SAK (Rec: 03/16/18 16:38 SAK [id number]) Trunk Strength Trunk Manual Muscle Testing Testing Position Supine Core Stabilization poor Hip Strength Hip Manual Muscle Testing Left Flexion (L2) 4+ Good+ Extension (S1) 3+ Fair+ Abduction 4- Good- External Rotation 4- Good- Internal Rotation 4+ Good+ Right Flexion (L2) 4+ Good+ Extension (S1) 4- Good- Abduction 4- Good- External Rotation 4 Good Internal Rotation 4+ Good+ Knee Strength Knee Manual Muscle Testing Left Flexion (S2) 4 Good Extension (L3) 4+ Good+ Right Flexion (S2) 4 Good Extension (L3) 4+ Good+ Ankle/Foot Strength Ankle and Foot Manual Muscle Testing Left Dorsiflexion (L4) 5 Normal Plantarflexion (S1) 5 Normal Right Dorsiflexion (L4) 5 Normal Plantarflexion (S1) 5 Normal Toe Strength Toe Manual Muscle Testing Left Great Toe Extension 4+ Good+ Right Great Toe Extension 4+ Good+ PT-OP-Q Treatments Start: 03/16/18 10:32 Freq: Status: Active Protocol: Document 04/11/18 15:15 DCW (Rec: 04/11/18 16:04 DCW [id number]) Gym Equipment Therapeutic Ball Trunk Rotation Exercise Details Trunk Rotation vs T-band resistance Ball Size/Color Green - 65 cm Lv 1 T-band Body Position Sitting Pelvic circles Exercise Details Pelvic tilts, lateral flexion, and circles Ball Size/Color Green - 65 cm Body Position Sitting Therapeutic Exercises Supine Exercises Bridging Supine Exercise Name Bridging in hooklying Comments pain in R hip Sidelying Exercises Hip Abduction Sidelying Exercise Name Sidelying hip abduction Side bilateral PT-OP-R Modalities Start: 03/16/18 10:32 Freq: Status: Active Protocol: Document 04/11/18 15:15 DCW (Rec: 04/11/18 16:04 DCW [id number]) Electric Stimulation Electric Stimulation Interferential Current (IFC) Body Location bilateral lumbar paraspinals Duration (Minutes) 15 Target/Sweep Sweep High/Low High Patient Position Supine Combined With Heat/Cold Cold Pack Comments 90/90 completed after traction Spinal Traction Traction Treatment Lumbar Method Mechanical Intermittent Patient Position Hooklying Force Applied (Pounds) 65 Intermittent Time On (Seconds) 30 Intermittent Time Off (Seconds) 10 Duration of Treatment (Minutes) 15 Traction Treatment Comment 20-65 pounds intermittent PT-OP-T Assessment and Plan Start: 03/16/18 10:32 Freq: Status: Active Protocol: Document 04/11/18 15:15 DCW (Rec: 04/11/18 16:04 DCW [id number]) Physical Therapy Assessment Impairments Impairments Activity Tolerance Functional Activities Pain Posture ROM Soft Tissue Mobility Strength Goals 4 Impairment ROM and strength Short Term Goal (STG) Patient will be compliant with a HEP for purposes of ROM, and strengthening focused on core stabilization STG Duration 6 wks Usp Goal (LTG) Patient to demonstrate WNL ROM and strength in trunk and LE' s and demonstrate good dynamic lumbar stabilization statically and dynamically with function LTG Duration 3 months 3 Impairment Oswestry disability index score 26% Short Term Goal (STG) Decrease score to 13% STG Duration 6 wks Usp Goal (LTG) Decrease Oswestry score to no greater than 10% LTG Duration 3 months 2 Impairment Activity tolerance Short Term Goal (STG) Patient will be able to go grocery shopping without an increase in pain STG Duration 6 wks Farm Operations Manager Goal (LTG) Patient will be able to stand or walk for 1 hour without an increase in pain and resume prior activities without an increase in pain LTG Duration 3 months 1 Impairment pain Short Term Goal (STG) Decrease pain to no greater than 4/10 STG Duration 6 wks Usp Goal (LTG) Decrease pain to no greater than 2/10 LTG Duration 3 months Assessment Summary Assessment Pt tolerated new exercises with minimal complaints of pain, although continued slow progression due to history of increased pain. Physical Therapy Plan Frequency and Duration Frequency of Treatment 2x/Week Duration of Treatment 3 months Plan of Care Start Date 03/16/18 Plan of Care End Date 06/16/18 Therapeutic Interventions Therapeutic Interventions Aquatic Therapy Home Exercise Program Manual Therapy Patient/Caregiver Education Self-Care/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 Soft Tissue Mobilization Taping Therapeutic Activities Therapeutic Exercises Modalities Cold Pack/Ice Massage Electric Stimulation Hot Packs Traction- Mechanical Ultrasound Next Visit Focus/Plan Next Note Type Treatment Note Next Visit Plan advance core strengthening, nerve glides
--- NOTE | 2018-04-19 14:39 | PT.OTN ---
Current Diagnoses Other intervertebral disc displacement, lumbar region (04/19/18) Radiculopathy, lumbosacral region (04/19/18) Physical Therapy Treatment Note PT-OP-A Visit Information Start: 03/16/18 10:32 Freq: Status: Active Protocol: Document 04/19/18 09:05 LEE (Rec: 04/19/18 14:38 SAK [id number]) Out-Patient Physical Therapy Visit Information Visit Information Visit Type Treatment Note Visit Start Time 09:05 Visit Stop Time 10:00 Total Visit Minutes 55 Visit Number 5 Number of SKI LIFT OPERATOR Visits 0 Evaluation Information Evaluation Date 03/16/18 PT-OP-B Current Condition Start: 03/16/18 10:32 Freq: Status: Active Protocol: Document 03/16/18 10:33 SAK (Rec: 03/16/18 10:40 SAK [id number]) Current Condition History of Current Condition Onset Date 2015 Current Complaints persistent, function-limiting LB with radicular symptoms into left LE History of Current Condition Accident 2015; fell in shower with resulting LBP. Poor response to PT at that time. Worst pain with standing, walking. Unable to go grocery shopping or do other activity on feet without increase in pain. [place] best a couple days ago on day of last steoid medication. Using heat, not ice. Activity level minimal. Prior Treatments and Tests Prior PT, had increasing left sided pain. Hadn't had imaging. MRI and x-ray; bulging disc L45. 2 injections, last one December 2017; somewhat helpful in decreasing numbness and tingling down left leg. Also taking oral steroids; just finished. Has had 2 chiropractort appointments; increase in right-sided symptoms. Future Testing and Treatments Planned No further physician appointments scheduled at this time. 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 A little confused about what exercises to do at home. PT-OP-F Manual Assessment Start: 03/16/18 10:32 Freq: Status: Active Protocol: Document 03/16/18 10:33 SAK (Rec: 03/16/18 16:38 [facility] [id number]) Manual Assessments Soft Tissue Assessment Soft Tissue Mobility Assessment Tender to palpation left lumbar spine L3-S1 Other Manual Assessments Other Manual Assessments tender to palpation left lumbar region PT-OP-G Mobility & Gait Start: 03/16/18 10:32 Freq: Status: Active Protocol: Document 03/16/18 10:33 SAK (Rec: 03/16/18 16:38 [facility] [id number]) OP Mobility Evaluation Bed Mobility Rolling indep Supine to and from Sit indep Transfers Sit to Stand indep OP Gait Assessment Gait Gait Assistance Required: Independent Assistive Devices Assistive Device None Gait Deviations General Gait Pattern Antalgic Factors Limiting Gait Function Factors Limiting Gait Function Pain PT-OP-H Neuro Start: 03/16/18 10:32 Freq: Status: Active Protocol: Document 03/16/18 10:33 SAK (Rec: 03/16/18 16:38 [facility] [id number]) Sensation Evaluation Gross Sensation Gross Sensation WNL Comments Summary Comments denies n/t or weakness, denies drop foot or leg giving way PT-OP-J Posture/Palpation/Skin Start: 03/16/18 10:32 Freq: Status: Active Protocol: Document 03/16/18 10:33 SAK (Rec: 03/16/18 16:38 [facility] [id number]) Posture Evaluation Position Standing T-Spine Posture Flattened L-Spine Posture Increased Lordosis Pelvis Posture (L) Iliac Crest Superior Hip Posture (R) Externally Rotated PT-OP-K Range of Motion Start: 03/16/18 10:32 Freq: Status: Active Protocol: Document 03/16/18 10:33 SAK (Rec: 03/16/18 16:38 [facility] [id number]) Lumbar Spine Range of Motion Lumbar Spine Active Testing Position standing Flexion 40 Extension 10 Rotation Left 45 Rotation Right 45 Lateral Flexion Left 50 Lateral Flexion Right 50 ROM Limitations Pain Comments observable instability Hip Goniometric Range of Motion Hip Measured in Degrees Left Hip ROM WFL No Straight Leg Raise 30 Right Hip ROM WFL No Straight Leg Raise 40 Hip ROM Limitations Hip ROM Limitations Pain Comments pain both left and right with active SLR, muscle tightness with PSLR PT-OP-L Special Tests Start: 03/16/18 10:32 Freq: Status: Active Protocol: Document 03/16/18 10:33 [facility] (Rec: 03/16/18 16:38 [facility] [id number]) Special Tests Lumbar Spine Special Tests Manual Traction Test Results relieving Straight Leg Raise Test Results positive for pain Stork Test Test Results negative mireille Compression Test Results increased pain PT-OP-M Strength Start: 03/16/18 10:32 Freq: Status: Active Protocol: Document 03/16/18 10:33 [facility] (Rec: 03/16/18 16:38 [facility] [id number]) Trunk Strength Trunk Manual Muscle Testing Testing Position Supine Core Stabilization poor Hip Strength Hip Manual Muscle Testing Left Flexion (L2) 4+ Good+ Extension (S1) 3+ Fair+ Abduction 4- Good- External Rotation 4- Good- Internal Rotation 4+ Good+ Right Flexion (L2) 4+ Good+ Extension (S1) 4- Good- Abduction 4- Good- External Rotation 4 Good Internal Rotation 4+ Good+ Knee Strength Knee Manual Muscle Testing Left Flexion (S2) 4 Good Extension (L3) 4+ Good+ Right Flexion (S2) 4 Good Extension (L3) 4+ Good+ Ankle/Foot Strength Ankle and Foot Manual Muscle Testing Left Dorsiflexion (L4) 5 Normal Plantarflexion (S1) 5 Normal Right Dorsiflexion (L4) 5 Normal Plantarflexion (S1) 5 Normal Toe Strength Toe Manual Muscle Testing Left Great Toe Extension 4+ Good+ Right Great Toe Extension 4+ Good+ PT-OP-Q Treatments Start: 03/16/18 10:32 Freq: Status: Active Protocol: Document 04/19/18 09:05 [facility] (Rec: 04/19/18 14:38 [facility] [id number]) Cardio Equipment Recumbent Stepper (Sci-Fit) Duration (Minutes) 8 Resistance 2 Other emphasis on neutral positioning Therapeutic Exercises Supine Exercises 90:90 push/pull isometric Reps/Minutes 5x piriformis stretch Reps/Minutes 2x postural isometric Reps/Minutes 8x TrA with hip ab/ER Reps/Minutes L2 TB TrA with pillow squeeze Reps/Minutes 10x Mo stretch Reps/Minutes 2x Bridging Supine Exercise Name bridging Comments painfree ROM Single knee to chest Side bilateral Reps/Minutes x 5 reps Double Knee to Chest Reps/Minutes x 3 reps Sidelying Exercises clamshells Side bilateral Reps/Minutes 10x Comments pain-free ROM Sitting Exercises piriformis stretch Reps/Minutes 2x Standing Exercises HS stretch Equipment Used stair Reps/Minutes 2x Comments neutral and with IR HC stretch Equipment Used stair Reps/Minutes 2x Comments neutral and with IR PT-OP-R Modalities Start: 03/16/18 10:32 Freq: Status: Active Protocol: Document 04/19/18 09:05 [facility] (Rec: 04/19/18 14:39 [facility] [id number]) Electric Stimulation Electric Stimulation Interferential Current (IFC) Body Location bilateral lumbar paraspinals Duration (Minutes) 15 Target/Sweep Sweep High/Low High Patient Position Supine Combined With Heat/Cold Cold Pack Comments 90/90 PT-OP-T Assessment and Plan Start: 03/16/18 10:32 Freq: Status: Active Protocol: Document 04/19/18 09:05 [facility] (Rec: 04/19/18 14:38 [facility] [id number]) Physical Therapy Assessment Impairments Impairments Activity Tolerance Functional Activities Pain Posture ROM Soft Tissue Mobility Strength Goals 4 Impairment ROM and strength Short Term Goal (STG) Patient will be compliant with a HEP for purposes of ROM, and strengthening focused on core stabilization STG Duration 6 wks [facility] Goal (LTG) Patient to demonstrate WNL ROM and strength in trunk and LE' s and demonstrate good dynamic lumbar stabilization statically and dynamically with function LTG Duration 3 months 3 Impairment Oswestry disability index score 26% Short Term Goal (STG) Decrease score to 13% STG Duration 6 wks Exchange Operator Goal (LTG) Decrease Oswestry score to no greater than 10% LTG Duration 3 months 2 Impairment Activity tolerance Short Term Goal (STG) Patient will be able to go grocery shopping without an increase in pain STG Duration 6 wks [facility] Goal (LTG) Patient will be able to stand or walk for 1 hour without an increase in pain and resume prior activities without an increase in pain LTG Duration 3 months 1 Impairment pain Short Term Goal (STG) Decrease pain to no greater than 4/10 STG Duration 6 wks Exchange Operator Goal (LTG) Decrease pain to no greater than 2/10 LTG Duration 3 months Assessment Summary Assessment Patient demonstrating improved awareness of core stabilization musculature and need to exercise in pain-free ROM. Today was last scheduled appointment so was issued written HEP and plans to schedule more appointments; understands it may take awhile to get back into therapy. Physical Therapy Plan Frequency and Duration Frequency of Treatment 2x/Week Duration of Treatment 3 months Plan of Care Start Date 03/16/18 Plan of Care End Date 06/16/18 Therapeutic Interventions Therapeutic Interventions Aquatic Therapy Home Exercise Program Manual Therapy Patient/Caregiver Education Self-Care/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 Soft Tissue Mobilization Taping Therapeutic Activities Therapeutic Exercises Modalities Cold Pack/Ice Massage Electric Stimulation Hot Packs Traction- Mechanical Ultrasound Next Visit Focus/Plan Next Note Type Treatment Note Next Visit Plan nerve glides, progress stabilization and stretching ex, consider aquatic therapy ( discussed today), manual therapy, modalities PRN.
--- NOTE | 2018-05-10 10:09 | PT.OTN ---
Current Diagnoses Other intervertebral disc displacement, lumbar region (05/10/18) Radiculopathy, lumbosacral region (05/10/18) Physical Therapy Treatment Note PT-OP-A Visit Information Start: 03/16/18 10:32 Freq: Status: Active Protocol: Document 05/10/18 08:14 SAK (Rec: 05/10/18 09:04 SAK [id number]) Out-Patient Physical Therapy Visit Information Visit Information Visit Type Treatment Note Visit Start Time 09:05 Visit Stop Time 10:00 Total Visit Minutes 55 Visit Number 6 Number of FOAM CASTER Visits 0 Evaluation Information Evaluation Date 03/16/18 PT-OP-B Current Condition Start: 03/16/18 10:32 Freq: Status: Active Protocol: Document 03/16/18 10:33 SAK (Rec: 03/16/18 10:40 SAK [id number]) Current Condition History of Current Condition Onset Date 2015 Current Complaints persistent, function-limiting LB with radicular symptoms into left LE History of Current Condition Accident 2015; fell in shower with resulting LBP. Poor response to PT at that time. Worst pain with standing, walking. Unable to go grocery shopping or do other activity on feet without increase in pain. [place] a couple days ago on day of last steoid medication. Using heat, not ice. Activity level minimal. Prior Treatments and Tests Prior PT, had increasing left sided pain. Hadn't had imaging. MRI and x-ray; bulging disc L45. 2 injections, last one December 2017; somewhat helpful in decreasing numbness and tingling down left leg. Also taking oral steroids; just finished. Has had 2 chiropractort appointments; increase in right-sided symptoms. Future Testing and Treatments Planned No further physician appointments scheduled at this time. 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 Fair compliance to HEP. Noticing less pain with walking, less limping. Trying to pay more attention to her core. PT-OP-F Manual Assessment Start: 03/16/18 10:32 Freq: Status: Active Protocol: Document 03/16/18 10:33 SAK (Rec: 03/16/18 16:38 [facility] [id number]) Manual Assessments Soft Tissue Assessment Soft Tissue Mobility Assessment Tender to palpation left lumbar spine L3-S1 Other Manual Assessments Other Manual Assessments tender to palpation left lumbar region PT-OP-G Mobility & Gait Start: 03/16/18 10:32 Freq: Status: Active Protocol: Document 03/16/18 10:33 SAK (Rec: 03/16/18 16:38 [facility] [id number]) OP Mobility Evaluation Bed Mobility Rolling indep Supine to and from Sit indep Transfers Sit to Stand indep OP Gait Assessment Gait Gait Assistance Required: Independent Assistive Devices Assistive Device None Gait Deviations General Gait Pattern Antalgic Factors Limiting Gait Function Factors Limiting Gait Function Pain PT-OP-H Neuro Start: 03/16/18 10:32 Freq: Status: Active Protocol: Document 03/16/18 10:33 SAK (Rec: 03/16/18 16:38 [facility] [id number]) Sensation Evaluation Gross Sensation Gross Sensation WNL Comments Summary Comments denies n/t or weakness, denies drop foot or leg giving way PT-OP-J Posture/Palpation/Skin Start: 03/16/18 10:32 Freq: Status: Active Protocol: Document 03/16/18 10:33 SAK (Rec: 03/16/18 16:38 [facility] [id number]) Posture Evaluation Position Standing T-Spine Posture Flattened L-Spine Posture Increased Lordosis Pelvis Posture (L) Iliac Crest Superior Hip Posture (R) Externally Rotated PT-OP-K Range of Motion Start: 03/16/18 10:32 Freq: Status: Active Protocol: Document 03/16/18 10:33 SAK (Rec: 03/16/18 16:38 [facility] [id number]) Lumbar Spine Range of Motion Lumbar Spine Active Testing Position standing Flexion 40 Extension 10 Rotation Left 45 Rotation Right 45 Lateral Flexion Left 50 Lateral Flexion Right 50 ROM Limitations Pain Comments observable instability Hip Goniometric Range of Motion Hip Measured in Degrees Left Hip ROM WFL No Straight Leg Raise 30 Right Hip ROM WFL No Straight Leg Raise 40 Hip ROM Limitations Hip ROM Limitations Pain Comments pain both left and right with active SLR, muscle tightness with PSLR PT-OP-L Special Tests Start: 03/16/18 10:32 Freq: Status: Active Protocol: Document 03/16/18 10:33 [facility] (Rec: 03/16/18 16:38 [facility] [id number]) Special Tests Lumbar Spine Special Tests Manual Traction Test Results relieving Straight Leg Raise Test Results positive for pain Stork Test Test Results negative mireille Compression Test Results increased pain PT-OP-M Strength Start: 03/16/18 10:32 Freq: Status: Active Protocol: Document 03/16/18 10:33 [facility] (Rec: 03/16/18 16:38 [facility] [id number]) Trunk Strength Trunk Manual Muscle Testing Testing Position Supine Core Stabilization poor Hip Strength Hip Manual Muscle Testing Left Flexion (L2) 4+ Good+ Extension (S1) 3+ Fair+ Abduction 4- Good- External Rotation 4- Good- Internal Rotation 4+ Good+ Right Flexion (L2) 4+ Good+ Extension (S1) 4- Good- Abduction 4- Good- External Rotation 4 Good Internal Rotation 4+ Good+ Knee Strength Knee Manual Muscle Testing Left Flexion (S2) 4 Good Extension (L3) 4+ Good+ Right Flexion (S2) 4 Good Extension (L3) 4+ Good+ Ankle/Foot Strength Ankle and Foot Manual Muscle Testing Left Dorsiflexion (L4) 5 Normal Plantarflexion (S1) 5 Normal Right Dorsiflexion (L4) 5 Normal Plantarflexion (S1) 5 Normal Toe Strength Toe Manual Muscle Testing Left Great Toe Extension 4+ Good+ Right Great Toe Extension 4+ Good+ PT-OP-Q Treatments Start: 03/16/18 10:32 Freq: Status: Active Protocol: Document 05/10/18 08:14 [facility] (Rec: 05/10/18 09:04 [facility] [id number]) Cardio Equipment Recumbent Elliptical (Biodex) Duration (Minutes) 8 Resistance 4 Therapeutic Exercises Supine Exercises TrA with bent LE lower Reps/Minutes 5x Mo stretch Reps/Minutes 2x Single knee to chest Side bilateral Reps/Minutes x 5 reps Double Knee to Chest Reps/Minutes x 3 reps Prone Exercises child's pose Reps/Minutes 3x Comments forward and to side Standing Exercises squats wih hip hinge Reps/Minutes 10x row, shld ext Resistance L1 TB Reps/Minutes 10x HS stretch Equipment Used stair Reps/Minutes 2x Comments neutral and with IR HC stretch Equipment Used stair Reps/Minutes 2x Comments neutral and with IR Manual Therapy Treatment Soft Tissue Mobilization l/s paraspinals Body Location mireille Mobilization Type Rolling Strumming Intensity/Depth Moderate Body Position Prone QL Body Location left Mobilization Type Rolling Sustained Pressure Intensity/Depth Moderate Body Position Prone Manual Techniques sacral mob counternutation Body Position Prone Reps/Duration 4 min PT-OP-R Modalities Start: 03/16/18 10:32 Freq: Status: Active Protocol: Document 04/19/18 09:05 [facility] (Rec: 04/19/18 14:39 [facility] [id number]) Electric Stimulation Electric Stimulation Interferential Current (IFC) Body Location bilateral lumbar paraspinals Duration (Minutes) 15 Target/Sweep Sweep High/Low High Patient Position Supine Combined With Heat/Cold Cold Pack Comments 90/90 PT-OP-T Assessment and Plan Start: 03/16/18 10:32 Freq: Status: Active Protocol: Document 05/10/18 08:14 [facility] (Rec: 05/10/18 09:04 [facility] [id number]) Physical Therapy Assessment Impairments Impairments Activity Tolerance Functional Activities Pain Posture ROM Soft Tissue Mobility Strength Goals 4 Impairment ROM and strength Short Term Goal (STG) Patient will be compliant with a HEP for purposes of ROM, and strengthening focused on core stabilization STG Duration 6 wks Custodial Goal (LTG) Patient to demonstrate WNL ROM and strength in trunk and LE' s and demonstrate good dynamic lumbar stabilization statically and dynamically with function LTG Duration 3 months 3 Impairment Oswestry disability index score 26% Short Term Goal (STG) Decrease score to 13% STG Duration 6 wks Custodial Goal (LTG) Decrease Oswestry score to no greater than 10% LTG Duration 3 months 2 Impairment Activity tolerance Short Term Goal (STG) Patient will be able to go grocery shopping without an increase in pain STG Duration 6 wks Custodial Goal (LTG) Patient will be able to stand or walk for 1 hour without an increase in pain and resume prior activities without an increase in pain LTG Duration 3 months 1 Impairment pain Short Term Goal (STG) Decrease pain to no greater than 4/10 STG Duration 6 wks Custodial Goal (LTG) Decrease pain to no greater than 2/10 LTG Duration 3 months Progress Towards Goals Progress Towards Goals Slow Progress - Other Progress Comments Patient's work schedule and busy PT clinic schedule have made it difficult for patient to get in. Verbalized understanding of need to get scheduled regularly. Opening in aquatic PT schedule this week but patient unable to attend. Assessment Summary Assessment Patient's QL tight, increased tightening and weight-bearing through left LE noted with squat. Tighter on left than right with child's pose to the side. Physical Therapy Plan Frequency and Duration Frequency of Treatment 2x/Week Duration of Treatment 3 months Plan of Care Start Date 03/16/18 Plan of Care End Date 06/16/18 Therapeutic Interventions Therapeutic Interventions Aquatic Therapy Home Exercise Program Manual Therapy Patient/Caregiver Education Self-Care/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 Soft Tissue Mobilization Taping Therapeutic Activities Therapeutic Exercises Modalities Cold Pack/Ice Massage Electric Stimulation Hot Packs Traction- Mechanical Ultrasound Next Visit Focus/Plan Next Note Type Treatment Note Next Visit Plan nerve glides, progress stabilization and stretching ex, consider aquatic therapy ( discussed today), manual therapy, modalities PRN.
--- NOTE | 2018-05-26 16:17 | PT.OTN ---
Current Diagnoses Other intervertebral disc displacement, lumbar region (05/26/18) Radiculopathy, lumbosacral region (05/26/18) Physical Therapy Treatment Note PT-OP-A Visit Information Start: 03/16/18 10:32 Freq: Status: Active Protocol: Document 05/26/18 14:31 SAK (Rec: 05/26/18 15:14 SAK [id number]) Out-Patient Physical Therapy Visit Information Visit Information Visit Type Treatment Note Visit Start Time 14:30 Visit Stop Time 15:30 Total Visit Minutes 60 Visit Number 7 Number of LINEN WORKER Visits 0 Evaluation Information Evaluation Date 03/16/18 PT-OP-B Current Condition Start: 03/16/18 10:32 Freq: Status: Active Protocol: Document 03/16/18 10:33 SAK (Rec: 03/16/18 10:40 SAK [id number]) Current Condition History of Current Condition Onset Date 2015 Current Complaints persistent, function-limiting LB with radicular symptoms into left LE History of Current Condition Accident 2015; fell in shower with resulting LBP. Poor response to PT at that time. Worst pain with standing, walking. Unable to go grocery shopping or do other activity on feet without increase in pain. [place] best a couple days ago on day of last steoid medication. Using heat, not ice. Activity level minimal. Prior Treatments and Tests Prior PT, had increasing left sided pain. Hadn't had imaging. MRI and x-ray; bulging disc L45. 2 injections, last one December 2017; somewhat helpful in decreasing numbness and tingling down left leg. Also taking oral steroids; just finished. Has had 2 chiropractort appointments; increase in right-sided symptoms. Future Testing and Treatments Planned No further physician appointments scheduled at this time. 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 Hasn't been to chiropractor for a few weeks, feels more sore. PT-OP-F Manual Assessment Start: 03/16/18 10:32 Freq: Status: Active Protocol: Document 03/16/18 10:33 SAK (Rec: 03/16/18 16:38 SAK [id number]) Manual Assessments Soft Tissue Assessment Soft Tissue Mobility Assessment Tender to palpation left lumbar spine L3-S1 Other Manual Assessments Other Manual Assessments tender to palpation left lumbar region PT-OP-G Mobility & Gait Start: 03/16/18 10:32 Freq: Status: Active Protocol: Document 03/16/18 10:33 SAK (Rec: 03/16/18 16:38 SAK [id number]) OP Mobility Evaluation Bed Mobility Rolling indep Supine to and from Sit indep Transfers Sit to Stand indep OP Gait Assessment Gait Gait Assistance Required: Independent Assistive Devices Assistive Device None Gait Deviations General Gait Pattern Antalgic Factors Limiting Gait Function Factors Limiting Gait Function Pain PT-OP-H Neuro Start: 03/16/18 10:32 Freq: Status: Active Protocol: Document 03/16/18 10:33 SAK (Rec: 03/16/18 16:38 [facility] [id number]) Sensation Evaluation Gross Sensation Gross Sensation WNL Comments Summary Comments denies n/t or weakness, denies drop foot or leg giving way PT-OP-J Posture/Palpation/Skin Start: 03/16/18 10:32 Freq: Status: Active Protocol: Document 03/16/18 10:33 SAK (Rec: 03/16/18 16:38 [facility] [id number]) Posture Evaluation Position Standing T-Spine Posture Flattened L-Spine Posture Increased Lordosis Pelvis Posture (L) Iliac Crest Superior Hip Posture (R) Externally Rotated PT-OP-K Range of Motion Start: 03/16/18 10:32 Freq: Status: Active Protocol: Document 03/16/18 10:33 SAK (Rec: 03/16/18 16:38 SAK [id number]) Lumbar Spine Range of Motion Lumbar Spine Active Testing Position standing Flexion 40 Extension 10 Rotation Left 45 Rotation Right 45 Lateral Flexion Left 50 Lateral Flexion Right 50 ROM Limitations Pain Comments observable instability Hip Goniometric Range of Motion Hip Measured in Degrees Left Hip ROM WFL No Straight Leg Raise 30 Right Hip ROM WFL No Straight Leg Raise 40 Hip ROM Limitations Hip ROM Limitations Pain Comments pain both left and right with active SLR, muscle tightness with PSLR PT-OP-L Special Tests Start: 03/16/18 10:32 Freq: Status: Active Protocol: Document 03/16/18 10:33 [facility] (Rec: 03/16/18 16:38 [facility] [id number]) Special Tests Lumbar Spine Special Tests Manual Traction Test Results relieving Straight Leg Raise Test Results positive for pain Stork Test Test Results negative mireille Compression Test Results increased pain PT-OP-M Strength Start: 03/16/18 10:32 Freq: Status: Active Protocol: Document 03/16/18 10:33 [facility] (Rec: 03/16/18 16:38 [facility] [id number]) Trunk Strength Trunk Manual Muscle Testing Testing Position Supine Core Stabilization poor Hip Strength Hip Manual Muscle Testing Left Flexion (L2) 4+ Good+ Extension (S1) 3+ Fair+ Abduction 4- Good- External Rotation 4- Good- Internal Rotation 4+ Good+ Right Flexion (L2) 4+ Good+ Extension (S1) 4- Good- Abduction 4- Good- External Rotation 4 Good Internal Rotation 4+ Good+ Knee Strength Knee Manual Muscle Testing Left Flexion (S2) 4 Good Extension (L3) 4+ Good+ Right Flexion (S2) 4 Good Extension (L3) 4+ Good+ Ankle/Foot Strength Ankle and Foot Manual Muscle Testing Left Dorsiflexion (L4) 5 Normal Plantarflexion (S1) 5 Normal Right Dorsiflexion (L4) 5 Normal Plantarflexion (S1) 5 Normal Toe Strength Toe Manual Muscle Testing Left Great Toe Extension 4+ Good+ Right Great Toe Extension 4+ Good+ PT-OP-Q Treatments Start: 03/16/18 10:32 Freq: Status: Active Protocol: Document 05/26/18 14:31 [facility] (Rec: 05/26/18 15:14 [facility] [id number]) Cardio Equipment Recumbent Stepper (Sci-Fit) Duration (Minutes) 10 Resistance 2 Other emphasis on neutral positioning Therapeutic Exercises Supine Exercises TrA with bent LE lower Reps/Minutes 5x 90:90 push/pull isometric Reps/Minutes 5x postural isometric Reps/Minutes 10x pelvic tilts Reps/Minutes 10x Comments focus on control Single knee to chest Side bilateral Reps/Minutes x 5 reps Double Knee to Chest Reps/Minutes x 3 reps Prone Exercises child's pose Reps/Minutes 3x Comments forward and to side Standing Exercises corner stretch Reps/Minutes 2x squats wih hip hinge Reps/Minutes 10x row, shld ext Resistance L1 TB Reps/Minutes 10x Self-Care/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 Treatment Education Patient Education Body Mechanics Posture Other Education sitting ergonomics for work postural correction neutral alignment for side sleeping; use of folded towel at side, belly PT-OP-R Modalities Start: 03/16/18 10:32 Freq: Status: Active Protocol: Document 05/26/18 14:31 [facility] (Rec: 05/26/18 16:15 [facility] [id number]) Electric Stimulation Electric Stimulation Interferential Current (IFC) Body Location bilateral lumbar paraspinals Duration (Minutes) 15 Target/Sweep Sweep High/Low High Patient Position Supine Combined With Heat/Cold Hot Pack Comments 90/90 PT-OP-T Assessment and Plan Start: 03/16/18 10:32 Freq: Status: Active Protocol: Document 05/26/18 14:31 [facility] (Rec: 05/26/18 16:15 [facility] [id number]) Physical Therapy Assessment Impairments Impairments Activity Tolerance Functional Activities Pain Posture ROM Soft Tissue Mobility Strength Goals 4 Impairment ROM and strength Short Term Goal (STG) Patient will be compliant with a HEP for purposes of ROM, and strengthening focused on core stabilization STG Duration 6 wks Senior Living Goal (LTG) Patient to demonstrate WNL ROM and strength in trunk and LE' s and demonstrate good dynamic lumbar stabilization statically and dynamically with function LTG Duration 3 months 3 Impairment Oswestry disability index score 26% Short Term Goal (STG) Decrease score to 13% STG Duration 6 wks Senior Living Goal (LTG) Decrease Oswestry score to no greater than 10% LTG Duration 3 months 2 Impairment Activity tolerance Short Term Goal (STG) Patient will be able to go grocery shopping without an increase in pain STG Duration 6 wks [place] Goal (LTG) Patient will be able to stand or walk for 1 hour without an increase in pain and resume prior activities without an increase in pain LTG Duration 3 months 1 Impairment pain Short Term Goal (STG) Decrease pain to no greater than 4/10 STG Duration 6 wks Senior Living Goal (LTG) Decrease pain to no greater than 2/10 LTG Duration 3 months Progress Towards Goals Progress Towards Goals Slow Progress - Other Assessment Summary Assessment Patient demonstrated good understanding of need for postural correction at work station and will ask boss for foot rest due to her height and foot rests not available at all work stations she uses Physical Therapy Plan Frequency and Duration Frequency of Treatment 2x/Week Duration of Treatment 3 months Plan of Care Start Date 03/16/18 Plan of Care End Date 06/16/18 Therapeutic Interventions Therapeutic Interventions Aquatic Therapy Home Exercise Program Manual Therapy Patient/Caregiver Education Self-Care/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 Soft Tissue Mobilization Taping Therapeutic Activities Therapeutic Exercises Modalities Cold Pack/Ice Massage Electric Stimulation Hot Packs Traction- Mechanical Ultrasound Next Visit Focus/Plan Next Note Type Treatment Note Next Visit Plan Review HEP, assess compliance, progress ther ex as tolerated . Further manual therapy as indicated.
--- NOTE | 2018-05-31 16:38 | PT.OTN ---
Current Diagnoses Other intervertebral disc displacement, lumbar region (05/31/18) Radiculopathy, lumbosacral region (05/31/18) Physical Therapy Treatment Note PT-OP-A Visit Information Start: 03/16/18 10:32 Freq: Status: Active Protocol: Document 05/31/18 16:26 SAK (Rec: 05/31/18 16:38 SAK [id number]) Out-Patient Physical Therapy Visit Information Visit Information Visit Type Treatment Note Visit Start Time 14:30 Visit Stop Time 15:30 Total Visit Minutes 58 Visit Number 8 Number of SCHEDULE CHECKER Visits 0 Evaluation Information Evaluation Date 03/16/18 PT-OP-B Current Condition Start: 03/16/18 10:32 Freq: Status: Active Protocol: Document 03/16/18 10:33 SAK (Rec: 03/16/18 10:40 SAK [id number]) Current Condition History of Current Condition Onset Date 2015 Current Complaints persistent, function-limiting LB with radicular symptoms into left LE History of Current Condition Accident 2015; fell in shower with resulting LBP. Poor response to PT at that time. Worst pain with standing, walking. Unable to go grocery shopping or do other activity on feet without increase in pain. [place] best a couple days ago on day of last steoid medication. Using heat, not ice. Activity level minimal. Prior Treatments and Tests Prior PT, had increasing left sided pain. Hadn't had imaging. MRI and x-ray; bulging disc L45. 2 injections, last one December 2017; somewhat helpful in decreasing numbness and tingling down left leg. Also taking oral steroids; just finished. Has had 2 chiropractort appointments; increase in right-sided symptoms. Future Testing and Treatments Planned No further physician appointments scheduled at this time. 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 not helped with stretching, ex. Forgot to try ice or heat. Better though persists at 5/10 . PT-OP-F Manual Assessment Start: 03/16/18 10:32 Freq: Status: Active Protocol: Document 03/16/18 10:33 SAK (Rec: 03/16/18 16:38 [facility] [id number]) Manual Assessments Soft Tissue Assessment Soft Tissue Mobility Assessment Tender to palpation left lumbar spine L3-S1 Other Manual Assessments Other Manual Assessments tender to palpation left lumbar region PT-OP-G Mobility & Gait Start: 03/16/18 10:32 Freq: Status: Active Protocol: Document 03/16/18 10:33 SAK (Rec: 03/16/18 16:38 [facility] [id number]) OP Mobility Evaluation Bed Mobility Rolling indep Supine to and from Sit indep Transfers Sit to Stand indep OP Gait Assessment Gait Gait Assistance Required: Independent Assistive Devices Assistive Device None Gait Deviations General Gait Pattern Antalgic Factors Limiting Gait Function Factors Limiting Gait Function Pain PT-OP-H Neuro Start: 03/16/18 10:32 Freq: Status: Active Protocol: Document 03/16/18 10:33 SAK (Rec: 03/16/18 16:38 [facility] [id number]) Sensation Evaluation Gross Sensation Gross Sensation WNL Comments Summary Comments denies n/t or weakness, denies drop foot or leg giving way PT-OP-J Posture/Palpation/Skin Start: 03/16/18 10:32 Freq: Status: Active Protocol: Document 03/16/18 10:33 SAK (Rec: 03/16/18 16:38 [facility] [id number]) Posture Evaluation Position Standing T-Spine Posture Flattened L-Spine Posture Increased Lordosis Pelvis Posture (L) Iliac Crest Superior Hip Posture (R) Externally Rotated PT-OP-K Range of Motion Start: 03/16/18 10:32 Freq: Status: Active Protocol: Document 03/16/18 10:33 SAK (Rec: 03/16/18 16:38 [facility] [id number]) Lumbar Spine Range of Motion Lumbar Spine Active Testing Position standing Flexion 40 Extension 10 Rotation Left 45 Rotation Right 45 Lateral Flexion Left 50 Lateral Flexion Right 50 ROM Limitations Pain Comments observable instability Hip Goniometric Range of Motion Hip Measured in Degrees Left Hip ROM WFL No Straight Leg Raise 30 Right Hip ROM WFL No Straight Leg Raise 40 Hip ROM Limitations Hip ROM Limitations Pain Comments pain both left and right with active SLR, muscle tightness with PSLR PT-OP-L Special Tests Start: 03/16/18 10:32 Freq: Status: Active Protocol: Document 03/16/18 10:33 [facility] (Rec: 03/16/18 16:38 [facility] [id number]) Special Tests Lumbar Spine Special Tests Manual Traction Test Results relieving Straight Leg Raise Test Results positive for pain Stork Test Test Results negative mireille Compression Test Results increased pain PT-OP-M Strength Start: 03/16/18 10:32 Freq: Status: Active Protocol: Document 03/16/18 10:33 [facility] (Rec: 03/16/18 16:38 [facility] [id number]) Trunk Strength Trunk Manual Muscle Testing Testing Position Supine Core Stabilization poor Hip Strength Hip Manual Muscle Testing Left Flexion (L2) 4+ Good+ Extension (S1) 3+ Fair+ Abduction 4- Good- External Rotation 4- Good- Internal Rotation 4+ Good+ Right Flexion (L2) 4+ Good+ Extension (S1) 4- Good- Abduction 4- Good- External Rotation 4 Good Internal Rotation 4+ Good+ Knee Strength Knee Manual Muscle Testing Left Flexion (S2) 4 Good Extension (L3) 4+ Good+ Right Flexion (S2) 4 Good Extension (L3) 4+ Good+ Ankle/Foot Strength Ankle and Foot Manual Muscle Testing Left Dorsiflexion (L4) 5 Normal Plantarflexion (S1) 5 Normal Right Dorsiflexion (L4) 5 Normal Plantarflexion (S1) 5 Normal Toe Strength Toe Manual Muscle Testing Left Great Toe Extension 4+ Good+ Right Great Toe Extension 4+ Good+ PT-OP-Q Treatments Start: 03/16/18 10:32 Freq: Status: Active Protocol: Document 05/31/18 16:26 [facility] (Rec: 05/31/18 16:38 [facility] [id number]) Cardio Equipment Recumbent Stepper (Sci-Fit) Duration (Minutes) 5 Resistance 2 Other emphasis on neutral positioning Therapeutic Exercises Supine Exercises Single knee to chest Side bilateral Reps/Minutes x 5 reps Double Knee to Chest Reps/Minutes x 3 reps Prone Exercises child's pose Reps/Minutes 3x Comments forward and to side Manual Therapy Treatment Soft Tissue Mobilization l/s paraspinals Body Location mireille Mobilization Type Rolling Strumming Intensity/Depth Moderate Body Position Prone QL Body Location left Mobilization Type Rolling Sustained Pressure Intensity/Depth Moderate Body Position Prone Manual Traction Lumbar Body Position Prone Reps/Duration 2 min Manual Techniques sacral mob counternutation Body Position Prone Reps/Duration 4 min PT-OP-R Modalities Start: 03/16/18 10:32 Freq: Status: Active Protocol: Document 05/31/18 16:26 [facility] (Rec: 05/31/18 16:38 [facility] [id number]) Electric Stimulation Electric Stimulation Interferential Current (IFC) Body Location bilateral lumbar paraspinals Duration (Minutes) 15 Target/Sweep Sweep High/Low High Patient Position Supine Combined With Heat/Cold Cold Pack Comments 90/90 Ultrasound Therapy Treatment right lumbar paraspinals Treatment Duration (minutes) 8 Patient Position Prone Mode Setting Pulsed Duty Cycle 50 Intensity Setting (w/cm2) 1.4 Comments prone pillow PT-OP-T Assessment and Plan Start: 03/16/18 10:32 Freq: Status: Active Protocol: Document 05/31/18 16:26 [facility] (Rec: 05/31/18 16:38 [facility] [id number]) Physical Therapy Assessment Impairments Impairments Activity Tolerance Functional Activities Pain Posture ROM Soft Tissue Mobility Strength Goals 4 Impairment ROM and strength Short Term Goal (STG) Patient will be compliant with a HEP for purposes of ROM, and strengthening focused on core stabilization STG Duration 6 wks Phonograph Needle Tip Maker Goal (LTG) Patient to demonstrate WNL ROM and strength in trunk and LE' s and demonstrate good dynamic lumbar stabilization statically and dynamically with function LTG Duration 3 months 3 Impairment Oswestry disability index score 26% Short Term Goal (STG) Decrease score to 13% STG Duration 6 wks Phonograph Needle Tip Maker Goal (LTG) Decrease Oswestry score to no greater than 10% LTG Duration 3 months 2 Impairment Activity tolerance Short Term Goal (STG) Patient will be able to go grocery shopping without an increase in pain STG Duration 6 wks Senior Living Goal (LTG) Patient will be able to stand or walk for 1 hour without an increase in pain and resume prior activities without an increase in pain LTG Duration 3 months 1 Impairment pain Short Term Goal (STG) Decrease pain to no greater than 4/10 STG Duration 6 wks Senior Living Goal (LTG) Decrease pain to no greater than 2/10 LTG Duration 3 months Assessment Summary Assessment Uncertain cause of increased pain over weekend. No pelvic rotation or leg length discrepancy noted. Patient as previously presents with increased nutation at sacrum. Physical Therapy Plan Frequency and Duration Frequency of Treatment 2x/Week Duration of Treatment 3 months Plan of Care Start Date 03/16/18 Plan of Care End Date 06/16/18 Therapeutic Interventions Therapeutic Interventions Aquatic Therapy Home Exercise Program Manual Therapy Patient/Caregiver Education Self-Care/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 Soft Tissue Mobilization Taping Therapeutic Activities Therapeutic Exercises Modalities Cold Pack/Ice Massage Electric Stimulation Hot Packs Traction- Mechanical Ultrasound Next Visit Focus/Plan Next Note Type Treatment Note Next Visit Plan Patient to go to pool close to her house as previously discussed; was instructed in gentle water walking in deep and shallow water. Assess response to today's treatment, progress ther ex as tolerated .
--- NOTE | 2018-06-14 14:25 | PT.OTN ---
Current Diagnoses Other intervertebral disc displacement, lumbar region (06/14/18) Radiculopathy, lumbosacral region (06/14/18) Physical Therapy Treatment Note PT-OP-A Visit Information Start: 03/16/18 10:32 Freq: Status: Active Protocol: Document 05/31/18 16:26 SAK (Rec: 05/31/18 16:38 SAK [id number]) Out-Patient Physical Therapy Visit Information Visit Information Visit Type Treatment Note Visit Start Time 14:30 Visit Stop Time 15:30 Total Visit Minutes 58 Visit Number 8 Number of GAMING DEALER Visits 0 Evaluation Information Evaluation Date 03/16/18 PT-OP-B Current Condition Start: 03/16/18 10:32 Freq: Status: Active Protocol: Document 03/16/18 10:33 SAK (Rec: 03/16/18 10:40 SAK [id number]) Current Condition History of Current Condition Onset Date 2015 Current Complaints persistent, function-limiting LB with radicular symptoms into left LE History of Current Condition Accident 2015; fell in shower with resulting LBP. Poor response to PT at that time. Worst pain with standing, walking. Unable to go grocery shopping or do other activity on feet without increase in pain. [place] best a couple days ago on day of last steoid medication. Using heat, not ice. Activity level minimal. Prior Treatments and Tests Prior PT, had increasing left sided pain. Hadn't had imaging. MRI and x-ray; bulging disc L45. 2 injections, last one December 2017; somewhat helpful in decreasing numbness and tingling down left leg. Also taking oral steroids; just finished. Has had 2 chiropractort appointments; increase in right-sided symptoms. Future Testing and Treatments Planned No further physician appointments scheduled at this time. 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 Hasn't been back to chiropractor. Only thing that is helpful is sitting or crouching down PT-OP-F Manual Assessment Start: 03/16/18 10:32 Freq: Status: Active Protocol: Document 03/16/18 10:33 SAK (Rec: 03/16/18 16:38 [facility] [id number]) Manual Assessments Soft Tissue Assessment Soft Tissue Mobility Assessment Tender to palpation left lumbar spine L3-S1 Other Manual Assessments Other Manual Assessments tender to palpation left lumbar region PT-OP-G Mobility & Gait Start: 03/16/18 10:32 Freq: Status: Active Protocol: Document 03/16/18 10:33 SAK (Rec: 03/16/18 16:38 [facility] [id number]) OP Mobility Evaluation Bed Mobility Rolling indep Supine to and from Sit indep Transfers Sit to Stand indep OP Gait Assessment Gait Gait Assistance Required: Independent Assistive Devices Assistive Device None Gait Deviations General Gait Pattern Antalgic Factors Limiting Gait Function Factors Limiting Gait Function Pain PT-OP-H Neuro Start: 03/16/18 10:32 Freq: Status: Active Protocol: Document 03/16/18 10:33 SAK (Rec: 03/16/18 16:38 [facility] [id number]) Sensation Evaluation Gross Sensation Gross Sensation WNL Comments Summary Comments denies n/t or weakness, denies drop foot or leg giving way PT-OP-J Posture/Palpation/Skin Start: 03/16/18 10:32 Freq: Status: Active Protocol: Document 03/16/18 10:33 SAK (Rec: 03/16/18 16:38 [facility] [id number]) Posture Evaluation Position Standing T-Spine Posture Flattened L-Spine Posture Increased Lordosis Pelvis Posture (L) Iliac Crest Superior Hip Posture (R) Externally Rotated PT-OP-K Range of Motion Start: 03/16/18 10:32 Freq: Status: Active Protocol: Document 03/16/18 10:33 SAK (Rec: 03/16/18 16:38 [facility] [id number]) Lumbar Spine Range of Motion Lumbar Spine Active Testing Position standing Flexion 40 Extension 10 Rotation Left 45 Rotation Right 45 Lateral Flexion Left 50 Lateral Flexion Right 50 ROM Limitations Pain Comments observable instability Hip Goniometric Range of Motion Hip Measured in Degrees Left Hip ROM WFL No Straight Leg Raise 30 Right Hip ROM WFL No Straight Leg Raise 40 Hip ROM Limitations Hip ROM Limitations Pain Comments pain both left and right with active SLR, muscle tightness with PSLR PT-OP-L Special Tests Start: 03/16/18 10:32 Freq: Status: Active Protocol: Document 03/16/18 10:33 [facility] (Rec: 03/16/18 16:38 [facility] [id number]) Special Tests Lumbar Spine Special Tests Manual Traction Test Results relieving Straight Leg Raise Test Results positive for pain Stork Test Test Results negative mireille Compression Test Results increased pain PT-OP-M Strength Start: 03/16/18 10:32 Freq: Status: Active Protocol: Document 03/16/18 10:33 [facility] (Rec: 03/16/18 16:38 [facility] [id number]) Trunk Strength Trunk Manual Muscle Testing Testing Position Supine Core Stabilization poor Hip Strength Hip Manual Muscle Testing Left Flexion (L2) 4+ Good+ Extension (S1) 3+ Fair+ Abduction 4- Good- External Rotation 4- Good- Internal Rotation 4+ Good+ Right Flexion (L2) 4+ Good+ Extension (S1) 4- Good- Abduction 4- Good- External Rotation 4 Good Internal Rotation 4+ Good+ Knee Strength Knee Manual Muscle Testing Left Flexion (S2) 4 Good Extension (L3) 4+ Good+ Right Flexion (S2) 4 Good Extension (L3) 4+ Good+ Ankle/Foot Strength Ankle and Foot Manual Muscle Testing Left Dorsiflexion (L4) 5 Normal Plantarflexion (S1) 5 Normal Right Dorsiflexion (L4) 5 Normal Plantarflexion (S1) 5 Normal Toe Strength Toe Manual Muscle Testing Left Great Toe Extension 4+ Good+ Right Great Toe Extension 4+ Good+ PT-OP-Q Treatments Start: 03/16/18 10:32 Freq: Status: Active Protocol: Document 06/14/18 08:15 SAK (Rec: 06/14/18 09:01 [facility] [id number]) Cardio Equipment Recumbent Stepper (Sci-Fit) Duration (Minutes) 5 Resistance 2 Other emphasis on neutral positioning Therapeutic Exercises Supine Exercises TrA with heelslide off table Reps/Minutes 5x TrA with march Reps/Minutes 10x TrA with bent LE lower Reps/Minutes 10x Single knee to chest Side bilateral Reps/Minutes x 5 reps Double Knee to Chest Reps/Minutes x 3 reps Prone Exercises hip IR/ER Reps/Minutes 3x ea Comments single leg gluteal set Reps/Minutes 10x child's pose Reps/Minutes 3x Comments forward and to side Sidelying Exercises hip hike Reps/Minutes 5x Standing Exercises estephania squat Reps/Minutes 2x Comments with manual stretch Manual Therapy Treatment Manual Techniques sacral mob counternutation Body Position Prone Reps/Duration 6 min 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 Self-Care/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 Treatment Education Other Education Gentle DLS ex when sitting at work (modified supine ex done today) PT-OP-R Modalities Start: 03/16/18 10:32 Freq: Status: Active Protocol: Document 06/14/18 08:15 [facility] (Rec: 06/14/18 14:24 [facility] [id number]) Electric Stimulation Electric Stimulation Interferential Current (IFC) Body Location bilateral lumbar paraspinals Duration (Minutes) 15 Target/Sweep Sweep High/Low High Patient Position Supine Combined With Heat/Cold Cold Pack Comments 90/90 PT-OP-T Assessment and Plan Start: 03/16/18 10:32 Freq: Status: Active Protocol: Document 06/14/18 08:15 [facility] (Rec: 06/14/18 14:24 [facility] [id number]) Physical Therapy Assessment Goals 4 Impairment ROM and strength Short Term Goal (STG) Patient will be compliant with a HEP for purposes of ROM, and strengthening focused on core stabilization STG Duration 6 wks E Business Project Manager Goal (LTG) Patient to demonstrate WNL ROM and strength in trunk and LE' s and demonstrate good dynamic lumbar stabilization statically and dynamically with function LTG Duration 3 months 3 Impairment Oswestry disability index score 26% Short Term Goal (STG) Decrease score to 13% STG Duration 6 wks E Business Project Manager Goal (LTG) Decrease Oswestry score to no greater than 10% LTG Duration 3 months 2 Impairment Activity tolerance Short Term Goal (STG) Patient will be able to go grocery shopping without an increase in pain STG Duration 6 wks E Business Project Manager Goal (LTG) Patient will be able to stand or walk for 1 hour without an increase in pain and resume prior activities without an increase in pain LTG Duration 3 months 1 Impairment pain Short Term Goal (STG) Decrease pain to no greater than 4/10 STG Duration 6 wks E Business Project Manager Goal (LTG) Decrease pain to no greater than 2/10 LTG Duration 3 months Assessment Summary Assessment tight into counternutation, reports decreased pain with sacral mobilization. Mod cues for correct muscle activation and core stabilization performance Physical Therapy Plan Frequency and Duration Frequency of Treatment 2x/Week Duration of Treatment 3 months Plan of Care Start Date 03/16/18 Plan of Care End Date 06/16/18 Therapeutic Interventions Therapeutic Interventions Aquatic Therapy Home Exercise Program Manual Therapy Patient/Caregiver Education Self-Care/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 Soft Tissue Mobilization Taping Therapeutic Activities Therapeutic Exercises Modalities Cold Pack/Ice Massage Electric Stimulation Hot Packs Traction- Mechanical Ultrasound Next Visit Focus/Plan Next Note Type Treatment Note Next Visit Plan Patient scheduled for aquatic therapy next session; has not gone to pool yet on own.
--- NOTE | 2018-06-19 13:57 | PT.OTN ---
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 Poor response to PT at that time. Worst pain with standing, walking. Unable to go grocery shopping or do other activity on feet without increase in pain. [place] best a couple days ago on day of last steoid medication. Using heat, not ice. Activity level minimal. Prior Treatments and Tests Prior PT, had increasing left sided pain. Hadn't had imaging. MRI and x-ray; bulging disc L45. 2 injections, last one December 2017; somewhat helpful in decreasing numbness and tingling down left leg. Also taking oral steroids; just finished. Has had 2 chiropractort appointments; increase in right-sided symptoms. Future Testing and Treatments Planned No further physician appointments scheduled at this time. 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 Functional Limitations- Recreation/ unable to tolerate Hobbies PT-OP-C Subjective Start: 03/16/18 10:32 Freq: Status: Active Protocol: Document 06/16/18 11:45 SAK (Rec: 06/19/18 13:56 SAK [id number]) OP-PT Subjective Patient Comments Patient Comments Excited to try aquatic therapy PT-OP-F Manual Assessment Start: 03/16/18 10:32 Freq: Status: Active Protocol: Document 03/16/18 10:33 SAK (Rec: 03/16/18 16:38 SAK [id number]) Manual Assessments Soft Tissue Assessment Soft Tissue Mobility Assessment Tender to palpation left lumbar spine L3-S1 Other Manual Assessments Other Manual Assessments tender to palpation left lumbar region PT-OP-G Mobility & Gait Start: 03/16/18 10:32 Freq: Status: Active Protocol: Document 03/16/18 10:33 SAK (Rec: 03/16/18 16:38 SAK [id number]) OP Mobility Evaluation Bed Mobility Rolling indep Supine to and from Sit indep Transfers Sit to Stand indep OP Gait Assessment Gait Gait Assistance Required: Independent Assistive Devices Assistive Device None Gait Deviations General Gait Pattern Antalgic Factors Limiting Gait Function Factors Limiting Gait Function Pain PT-OP-H Neuro Start: 03/16/18 10:32 Freq: Status: Active Protocol: Document 03/16/18 10:33 SAK (Rec: 03/16/18 16:38 [facility] [id number]) Sensation Evaluation Gross Sensation Gross Sensation WNL Comments Summary Comments denies n/t or weakness, denies drop foot or leg giving way PT-OP-J Posture/Palpation/Skin Start: 03/16/18 10:32 Freq: Status: Active Protocol: Document 03/16/18 10:33 SAK (Rec: 03/16/18 16:38 SAK [id number]) Posture Evaluation Position Standing T-Spine Posture Flattened L-Spine Posture Increased Lordosis Pelvis Posture (L) Iliac Crest Superior Hip Posture (R) Externally Rotated PT-OP-K Range of Motion Start: 03/16/18 10:32 Freq: Status: Active Protocol: Document 03/16/18 10:33 SAK (Rec: 03/16/18 16:38 SAK [id number]) Lumbar Spine Range of Motion Lumbar Spine Active Testing Position standing Flexion 40 Extension 10 Rotation Left 45 Rotation Right 45 Lateral Flexion Left 50 Lateral Flexion Right 50 ROM Limitations Pain Comments observable instability Hip Goniometric Range of Motion Hip Measured in Degrees Left Hip ROM WFL No Straight Leg Raise 30 Right Hip ROM WFL No Straight Leg Raise 40 Hip ROM Limitations Hip ROM Limitations Pain Comments pain both left and right with active SLR, muscle tightness with PSLR PT-OP-L Special Tests Start: 03/16/18 10:32 Freq: Status: Active Protocol: Document 03/16/18 10:33 [facility] (Rec: 03/16/18 16:38 [facility] [id number]) Special Tests Lumbar Spine Special Tests Manual Traction Test Results relieving Straight Leg Raise Test Results positive for pain Stork Test Test Results negative mireille Compression Test Results increased pain PT-OP-M Strength Start: 03/16/18 10:32 Freq: Status: Active Protocol: Document 03/16/18 10:33 [facility] (Rec: 03/16/18 16:38 [facility] [id number]) Trunk Strength Trunk Manual Muscle Testing Testing Position Supine Core Stabilization poor Hip Strength Hip Manual Muscle Testing Left Flexion (L2) 4+ Good+ Extension (S1) 3+ Fair+ Abduction 4- Good- External Rotation 4- Good- Internal Rotation 4+ Good+ Right Flexion (L2) 4+ Good+ Extension (S1) 4- Good- Abduction 4- Good- External Rotation 4 Good Internal Rotation 4+ Good+ Knee Strength Knee Manual Muscle Testing Left Flexion (S2) 4 Good Extension (L3) 4+ Good+ Right Flexion (S2) 4 Good Extension (L3) 4+ Good+ Ankle/Foot Strength Ankle and Foot Manual Muscle Testing Left Dorsiflexion (L4) 5 Normal Plantarflexion (S1) 5 Normal Right Dorsiflexion (L4) 5 Normal Plantarflexion (S1) 5 Normal Toe Strength Toe Manual Muscle Testing Left Great Toe Extension 4+ Good+ Right Great Toe Extension 4+ Good+ PT-OP-Q Treatments Start: 03/16/18 10:32 Freq: Status: Active Protocol: Document 06/14/18 08:15 [facility] (Rec: 06/14/18 09:01 [facility] [id number]) Cardio Equipment Recumbent Stepper (Sci-Fit) Duration (Minutes) 5 Resistance 2 Other emphasis on neutral positioning Therapeutic Exercises Supine Exercises TrA with heelslide off table Reps/Minutes 5x TrA with march Reps/Minutes 10x TrA with bent LE lower Reps/Minutes 10x Single knee to chest Side bilateral Reps/Minutes x 5 reps Double Knee to Chest Reps/Minutes x 3 reps Prone Exercises hip IR/ER Reps/Minutes 3x ea Comments single leg gluteal set Reps/Minutes 10x child's pose Reps/Minutes 3x Comments forward and to side Sidelying Exercises hip hike Reps/Minutes 5x Standing Exercises estephania squat Reps/Minutes 2x Comments with manual stretch Manual Therapy Treatment Manual Techniques sacral mob counternutation Body Position Prone Reps/Duration 6 min Comments 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 Self-Care/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 Treatment Education Other Education Gentle DLS ex when sitting at work (modified supine ex done today) PT-OP-R Modalities Start: 03/16/18 10:32 Freq: Status: Active Protocol: Document 06/14/18 08:15 SAK (Rec: 06/14/18 14:24 [facility] [id number]) Electric Stimulation Electric Stimulation Interferential Current (IFC) Body Location bilateral lumbar paraspinals Duration (Minutes) 15 Target/Sweep Sweep High/Low High Patient Position Supine Combined With Heat/Cold Cold Pack Comments 90/90 PT-OP-S Aquatic Treatment Start: 06/19/18 13:46 Freq: Status: Active Protocol: Document 06/16/18 11:45 [facility] (Rec: 06/19/18 13:56 [facility] [id number]) Aquatics Treatment Pool Entry/Exit Pool Entry/Exit Method Stairs Assistance Independent Comments cues for backward Water Walking fwd/bck/side/july Water Level Chest Level Level of Assistance Verbal Cues Comments painful, cues for decreased step length, neutral posture but still some pn Lower Extremity Stretches DKTC, SKTC Body Position Standing Water Level Hepler Comments wall hamstrings, hip add, ITB Body Position Standing Water Level Chest Level Equipment Ankle Floats Reps/Duration 2x Upper Extremity Exercises hor ab/ad, flex/ext Body Position Hooklying Water Level Chest Level Comments DLS emphasis Spinal Exercises deep water hang Body Position Hooklying Water Level Chest Level Reps/Duration 2' Comments for spinal decompression [place] Activities [place] Activities Bicycle Cross [place] Running Hip Abduction/Adduction Sit Kicks Other Activities Deep water DLS Equipment small noodle, med barbells Duration 30 PT-OP-T Assessment and Plan Start: 03/16/18 10:32 Freq: Status: Active Protocol: Document 06/16/18 11:45 SAK (Rec: 06/19/18 13:56 [facility] [id number]) Physical Therapy Assessment Goals 4 Impairment ROM and strength Short Term Goal (STG) Patient will be compliant with a HEP for purposes of ROM, and strengthening focused on core stabilization STG Duration 6 wks Rawhide Trimmer Goal (LTG) Patient to demonstrate WNL ROM and strength in trunk and LE' s and demonstrate good dynamic lumbar stabilization statically and dynamically with function LTG Duration 3 months 3 Impairment Oswestry disability index score 26% Short Term Goal (STG) Decrease score to 13% STG Duration 6 wks Long-Term Goal (LTG) Decrease Oswestry score to no greater than 10% LTG Duration 3 months 2 Impairment Activity tolerance Short Term Goal (STG) Patient will be able to go grocery shopping without an increase in pain STG Duration 6 wks Long-Term Goal (LTG) Patient will be able to stand or walk for 1 hour without an increase in pain and resume prior activities without an increase in pain LTG Duration 3 months 1 Impairment pain Short Term Goal (STG) Decrease pain to no greater than 4/10 STG Duration 6 wks Rawhide Trimmer Goal (LTG) Decrease pain to no greater than 2/10 LTG Duration 3 months Assessment Summary Assessment Excellent tolerance for deep water ex with minimal to no pain. Despite attempts at postural correction and instruction for core stabilization patient reported increased pain with shallow water exercises. Physical Therapy Plan Frequency and Duration Frequency of Treatment 2x/Week Duration of Treatment 3 months Plan of Care Start Date 03/16/18 Plan of Care End Date 06/16/18 Therapeutic Interventions Therapeutic Interventions Aquatic Therapy Home Exercise Program Manual Therapy Patient/Caregiver Education Self-Care/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 Soft Tissue Mobilization Taping Therapeutic Activities Therapeutic Exercises Modalities Cold Pack/Ice Massage Electric Stimulation Hot Packs Traction- Mechanical Ultrasound Next Visit Focus/Plan Next Note Type Treatment Note Next Visit Plan Continue PT, aquatic PT as patient work schedule allows due to better tolerance.
--- NOTE | 2018-07-05 14:28 | PT.OTN ---
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 Poor response to PT at that time. Worst pain with standing, walking. Unable to go grocery shopping or do other activity on feet without increase in pain. [place] best a couple days ago on day of last steoid medication. Using heat, not ice. Activity level minimal. Prior Treatments and Tests Prior PT, had increasing left sided pain. Hadn't had imaging. MRI and x-ray; bulging disc L45. 2 injections, last one December 2017; somewhat helpful in decreasing numbness and tingling down left leg. Also taking oral steroids; just finished. Has had 2 chiropractort appointments; increase in right-sided symptoms. Future Testing and Treatments Planned No further physician appointments scheduled at this time. 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 Reports some increase in hip discomfort the last few days. PT-OP-F Manual Assessment Start: 03/16/18 10:32 Freq: Status: Active Protocol: Document 03/16/18 10:33 SAK (Rec: 03/16/18 16:38 [facility] [id number]) Manual Assessments Soft Tissue Assessment Soft Tissue Mobility Assessment Tender to palpation left lumbar spine L3-S1 Other Manual Assessments Other Manual Assessments tender to palpation left lumbar region PT-OP-G Mobility & Gait Start: 03/16/18 10:32 Freq: Status: Active Protocol: Document 03/16/18 10:33 SAK (Rec: 03/16/18 16:38 [facility] [id number]) OP Mobility Evaluation Bed Mobility Rolling indep Supine to and from Sit indep Transfers Sit to Stand indep OP Gait Assessment Gait Gait Assistance Required: Independent Assistive Devices Assistive Device None Gait Deviations General Gait Pattern Antalgic Factors Limiting Gait Function Factors Limiting Gait Function Pain PT-OP-H Neuro Start: 03/16/18 10:32 Freq: Status: Active Protocol: Document 03/16/18 10:33 SAK (Rec: 03/16/18 16:38 [facility] [id number]) Sensation Evaluation Gross Sensation Gross Sensation WNL Comments Summary Comments denies n/t or weakness, denies drop foot or leg giving way PT-OP-J Posture/Palpation/Skin Start: 03/16/18 10:32 Freq: Status: Active Protocol: Document 03/16/18 10:33 SAK (Rec: 03/16/18 16:38 [facility] [id number]) Posture Evaluation Position Standing T-Spine Posture Flattened L-Spine Posture Increased Lordosis Pelvis Posture (L) Iliac Crest Superior Hip Posture (R) Externally Rotated PT-OP-K Range of Motion Start: 03/16/18 10:32 Freq: Status: Active Protocol: Document 03/16/18 10:33 SAK (Rec: 03/16/18 16:38 [facility] [id number]) Lumbar Spine Range of Motion Lumbar Spine Active Testing Position standing Flexion 40 Extension 10 Rotation Left 45 Rotation Right 45 Lateral Flexion Left 50 Lateral Flexion Right 50 ROM Limitations Pain Comments observable instability Hip Goniometric Range of Motion Hip Measured in Degrees Left Hip ROM WFL No Straight Leg Raise 30 Right Hip ROM WFL No Straight Leg Raise 40 Hip ROM Limitations Hip ROM Limitations Pain Comments pain both left and right with active SLR, muscle tightness with PSLR PT-OP-L Special Tests Start: 03/16/18 10:32 Freq: Status: Active Protocol: Document 03/16/18 10:33 [facility] (Rec: 03/16/18 16:38 [facility] [id number]) Special Tests Lumbar Spine Special Tests Manual Traction Test Results relieving Straight Leg Raise Test Results positive for pain Stork Test Test Results negative mireille Compression Test Results increased pain PT-OP-M Strength Start: 03/16/18 10:32 Freq: Status: Active Protocol: Document 03/16/18 10:33 [facility] (Rec: 03/16/18 16:38 [facility] [id number]) Trunk Strength Trunk Manual Muscle Testing Testing Position Supine Core Stabilization poor Hip Strength Hip Manual Muscle Testing Left Flexion (L2) 4+ Good+ Extension (S1) 3+ Fair+ Abduction 4- Good- External Rotation 4- Good- Internal Rotation 4+ Good+ Right Flexion (L2) 4+ Good+ Extension (S1) 4- Good- Abduction 4- Good- External Rotation 4 Good Internal Rotation 4+ Good+ Knee Strength Knee Manual Muscle Testing Left Flexion (S2) 4 Good Extension (L3) 4+ Good+ Right Flexion (S2) 4 Good Extension (L3) 4+ Good+ Ankle/Foot Strength Ankle and Foot Manual Muscle Testing Left Dorsiflexion (L4) 5 Normal Plantarflexion (S1) 5 Normal Right Dorsiflexion (L4) 5 Normal Plantarflexion (S1) 5 Normal Toe Strength Toe Manual Muscle Testing Left Great Toe Extension 4+ Good+ Right Great Toe Extension 4+ Good+ PT-OP-Q Treatments Start: 03/16/18 10:32 Freq: Status: Active Protocol: Document 06/14/18 08:15 SAK (Rec: 06/14/18 09:01 [facility] [id number]) Cardio Equipment Recumbent Stepper (Sci-Fit) Duration (Minutes) 5 Resistance 2 Other emphasis on neutral positioning Therapeutic Exercises Supine Exercises TrA with heelslide off table Reps/Minutes 5x TrA with march Reps/Minutes 10x TrA with bent LE lower Reps/Minutes 10x Single knee to chest Side bilateral Reps/Minutes x 5 reps Double Knee to Chest Reps/Minutes x 3 reps Prone Exercises hip IR/ER Reps/Minutes 3x ea Comments single leg gluteal set Reps/Minutes 10x child's pose Reps/Minutes 3x Comments forward and to side Sidelying Exercises hip hike Reps/Minutes 5x Standing Exercises estephania squat Reps/Minutes 2x Comments with manual stretch Manual Therapy Treatment Manual Techniques sacral mob counternutation Body Position Prone Reps/Duration 6 min 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/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 Treatment Education Other Education Gentle DLS ex when sitting at work (modified supine ex done today) PT-OP-R Modalities Start: 03/16/18 10:32 Freq: Status: Active Protocol: Document 06/14/18 08:15 SAK (Rec: 06/14/18 14:24 [facility] [id number]) Electric Stimulation Electric Stimulation Interferential Current (IFC) Body Location bilateral lumbar paraspinals Duration (Minutes) 15 Target/Sweep Sweep High/Low High Patient Position Supine Combined With Heat/Cold Cold Pack Comments 90/90 PT-OP-S Aquatic Treatment Start: 06/19/18 13:46 Freq: Status: Active Protocol: Document 07/05/18 14:21 SAK (Rec: 07/05/18 14:28 [facility] [id number]) Aquatics Treatment Pool Entry/Exit Pool Entry/Exit Method Stairs Assistance Independent Comments cues for backward Water Walking fwd/bck/side/march Water Level Chest Level Level of Assistance Verbal Cues Lower Extremity Stretches DKTC, SKTC Body Position Standing Water Level Ava Comments wall hamstrings, hip add, ITB Body Position Standing Water Level Chest Level Equipment Small Noodle Reps/Duration 2x Upper Extremity Exercises hor ab/ad, flex/ext Body Position Hooklying Water Level Chest Level Comments DLS emphasis Spinal Exercises deep water hang Body Position Hooklying Water Level Chest Level Reps/Duration 2' Comments for spinal decompression Ava Activities Ava Activities Bicycle Cross [place] Running Hip Abduction/Adduction Sit Kicks Other Activities Deep water DLS Equipment small noodle, med barbells Duration 30 Manual Techniques Aquatic Joint Mobilizations thoracic PA's; supine with yellow neck float, Aquatic Massage supine with yellow neck float, LE floats: to lumbosacral reg PT-OP-T Assessment and Plan Start: 03/16/18 10:32 Freq: Status: Active Protocol: Document 07/05/18 14:21 [facility] (Rec: 07/05/18 14:28 [facility] [id number]) Physical Therapy Assessment Impairments Impairments Activity Tolerance Functional Activities Pain Posture ROM Soft Tissue Mobility Strength Goals 4 Impairment ROM and strength Short Term Goal (STG) Patient will be compliant with a HEP for purposes of ROM, and strengthening focused on core stabilization STG Duration 6 wks Penitentiary Goal (LTG) Patient to demonstrate WNL ROM and strength in trunk and LE' s and demonstrate good dynamic lumbar stabilization statically and dynamically with function LTG Duration 3 months 3 Impairment Oswestry disability index score 26% Short Term Goal (STG) Decrease score to 13% STG Duration 6 wks Knowledge Engineer Goal (LTG) Decrease Oswestry score to no greater than 10% LTG Duration 3 months 2 Impairment Activity tolerance Short Term Goal (STG) Patient will be able to go grocery shopping without an increase in pain STG Duration 6 wks Knowledge Engineer Goal (LTG) Patient will be able to stand or walk for 1 hour without an increase in pain and resume prior activities without an increase in pain LTG Duration 3 months 1 Impairment pain Short Term Goal (STG) Decrease pain to no greater than 4/10 STG Duration 6 wks Knowledge Engineer Goal (LTG) Decrease pain to no greater than 2/10 LTG Duration 3 months Assessment Summary Assessment Patient initially reported pain with sidestepping but after deep water and manual aquatic activities reported no pain with sideways gait in shallow. Improving postural alignment, more easily corrects. Physical Therapy Plan Frequency and Duration Frequency of Treatment 2x/Week Duration of Treatment 3 months Plan of Care Start Date 03/16/18 Plan of Care End Date 06/16/18 Therapeutic Interventions Therapeutic Interventions Aquatic Therapy Home Exercise Program Manual Therapy Patient/Caregiver Education Self-Care/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 Soft Tissue Mobilization Taping Therapeutic Activities Therapeutic Exercises Modalities Cold Pack/Ice Massage Electric Stimulation Hot Packs Traction- Mechanical Ultrasound Next Visit Focus/Plan Next Note Type Treatment Note Next Visit Plan Continue PT, aquatic PT as possible (limited hours difficult to fit into patient' s work schedule)
--- NOTE | 2018-07-10 17:33 | PT.OTN ---
Current Diagnoses Other intervertebral disc displacement, lumbar region (07/10/18) Radiculopathy, lumbosacral region (07/10/18) Physical Therapy Treatment Note PT-OP-A Visit Information Start: 03/16/18 10:32 Freq: Status: Active Protocol: Document 07/10/18 14:30 SAK (Rec: 07/10/18 17:25 SAK [id number]) Out-Patient Physical Therapy Visit Information Visit Information Visit Type Treatment Note Visit Start Time 14:30 Visit Stop Time 15:25 Total Visit Minutes 55 Visit Number 12 Number of HEEL SANDER RUBBER Visits 0 Evaluation Information Evaluation Date 03/16/18 PT-OP-B Current Condition Start: 03/16/18 10:32 Freq: Status: Active Protocol: Document 03/16/18 10:33 SAK (Rec: 03/16/18 10:40 SAK [id number]) Current Condition History of Current Condition Onset Date 2015 Current Complaints persistent, function-limiting LB with radicular symptoms into left LE History of Current Condition Accident 2015; fell in shower with resulting LBP. Poor response to PT at that time. Worst pain with standing, walking. Unable to go grocery shopping or do other activity on feet without increase in pain. [place] best a couple days ago on day of last steoid medication. Using heat, not ice. Activity level minimal. Prior Treatments and Tests Prior PT, had increasing left sided pain. Hadn't had imaging. MRI and x-ray; bulging disc L45. 2 injections, last one December 2017; somewhat helpful in decreasing numbness and tingling down left leg. Also taking oral steroids; just finished. Has had 2 chiropractort appointments; increase in right-sided symptoms. Future Testing and Treatments Planned No further physician appointments scheduled at this time. 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 Continues to have difficulty complying to HEP due to poor exercise tolerance and frustration. Significant increase in pain after taking care of friends baby and toddler for a day. PT-OP-F Manual Assessment Start: 03/16/18 10:32 Freq: Status: Active Protocol: Document 03/16/18 10:33 SAK (Rec: 03/16/18 16:38 SAK [id number]) Manual Assessments Soft Tissue Assessment Soft Tissue Mobility Assessment Tender to palpation left lumbar spine L3-S1 Other Manual Assessments Other Manual Assessments tender to palpation left lumbar region PT-OP-G Mobility & Gait Start: 03/16/18 10:32 Freq: Status: Active Protocol: Document 03/16/18 10:33 SAK (Rec: 03/16/18 16:38 [facility] [id number]) OP Mobility Evaluation Bed Mobility Rolling indep Supine to and from Sit indep Transfers Sit to Stand indep OP Gait Assessment Gait Gait Assistance Required: Independent Assistive Devices Assistive Device None Gait Deviations General Gait Pattern Antalgic Factors Limiting Gait Function Factors Limiting Gait Function Pain PT-OP-H Neuro Start: 03/16/18 10:32 Freq: Status: Active Protocol: Document 03/16/18 10:33 SAK (Rec: 03/16/18 16:38 SAK [id number]) Sensation Evaluation Gross Sensation Gross Sensation WNL Comments Summary Comments denies n/t or weakness, denies drop foot or leg giving way PT-OP-J Posture/Palpation/Skin Start: 03/16/18 10:32 Freq: Status: Active Protocol: Document 03/16/18 10:33 SAK (Rec: 03/16/18 16:38 SAK [id number]) Posture Evaluation Position Standing T-Spine Posture Flattened L-Spine Posture Increased Lordosis Pelvis Posture (L) Iliac Crest Superior Hip Posture (R) Externally Rotated PT-OP-K Range of Motion Start: 03/16/18 10:32 Freq: Status: Active Protocol: Document 03/16/18 10:33 SAK (Rec: 03/16/18 16:38 SAK [id number]) Lumbar Spine Range of Motion Lumbar Spine Active Testing Position standing Flexion 40 Extension 10 Rotation Left 45 Rotation Right 45 Lateral Flexion Left 50 Lateral Flexion Right 50 ROM Limitations Pain Comments observable instability Hip Goniometric Range of Motion Hip Measured in Degrees Left Hip ROM WFL No Straight Leg Raise 30 Right Hip ROM WFL No Straight Leg Raise 40 Hip ROM Limitations Hip ROM Limitations Pain Comments pain both left and right with active SLR, muscle tightness with PSLR PT-OP-L Special Tests Start: 03/16/18 10:32 Freq: Status: Active Protocol: Document 03/16/18 10:33 [facility] (Rec: 03/16/18 16:38 [facility] [id number]) Special Tests Lumbar Spine Special Tests Manual Traction Test Results relieving Straight Leg Raise Test Results positive for pain Stork Test Test Results negative mireille Compression Test Results increased pain PT-OP-M Strength Start: 03/16/18 10:32 Freq: Status: Active Protocol: Document 03/16/18 10:33 [facility] (Rec: 03/16/18 16:38 [facility] [id number]) Trunk Strength Trunk Manual Muscle Testing Testing Position Supine Core Stabilization poor Hip Strength Hip Manual Muscle Testing Left Flexion (L2) 4+ Good+ Extension (S1) 3+ Fair+ Abduction 4- Good- External Rotation 4- Good- Internal Rotation 4+ Good+ Right Flexion (L2) 4+ Good+ Extension (S1) 4- Good- Abduction 4- Good- External Rotation 4 Good Internal Rotation 4+ Good+ Knee Strength Knee Manual Muscle Testing Left Flexion (S2) 4 Good Extension (L3) 4+ Good+ Right Flexion (S2) 4 Good Extension (L3) 4+ Good+ Ankle/Foot Strength Ankle and Foot Manual Muscle Testing Left Dorsiflexion (L4) 5 Normal Plantarflexion (S1) 5 Normal Right Dorsiflexion (L4) 5 Normal Plantarflexion (S1) 5 Normal Toe Strength Toe Manual Muscle Testing Left Great Toe Extension 4+ Good+ Right Great Toe Extension 4+ Good+ PT-OP-Q Treatments Start: 03/16/18 10:32 Freq: Status: Active Protocol: Document 07/10/18 14:30 [facility] (Rec: 07/10/18 17:31 [facility] [id number]) Cardio Equipment Recumbent Stepper (Sci-Fit) Duration (Minutes) 6 Resistance 3 Other emphasis on neutral positioning Gym Equipment Therapeutic Ball LTR Ball Size/Color green-65 cm Body Position Hooklying Reps/Duration 10x Comments small amplitude TrA with leg lowering Ball Size/Color green- 65 cm Body Position Hooklying Reps/Duration 10x rows, shld ext Ball Size/Color green- 65 cm Body Position Sitting Reps/Duration 10x Comments L2 TB, squeezing small ball between legs leg lift Ball Size/Color green-65 cm Body Position Sitting Reps/Duration 10x Pelvic circles Exercise Details Pelvic tilts, lateral flexion, and circles Ball Size/Color Green - 65 cm Body Position Sitting Reps/Duration 10x Therapeutic Exercises Prone Exercises single leg unweighting Reps/Minutes 10x gluteal set Reps/Minutes 10x child's pose Reps/Minutes 3x Comments forward and to side Manual Therapy Treatment Soft Tissue Mobilization l/s paraspinals Body Location mireille Mobilization Type Rolling Strumming Intensity/Depth Moderate Body Position Prone QL Body Location left Mobilization Type Rolling Sustained Pressure Intensity/Depth Moderate Body Position Prone Self-Care/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 Treatment Education Other Education Importance of HEP compliance and finding a way to fit aquatic exercise into her schedule. PT-OP-R Modalities Start: 03/16/18 10:32 Freq: Status: Active Protocol: Document 07/10/18 14:30 [facility] (Rec: 07/10/18 17:32 [facility] [id number]) Electric Stimulation Electric Stimulation Interferential Current (IFC) Body Location bilateral lumbar paraspinals Duration (Minutes) 15 Target/Sweep Sweep High/Low High Patient Position Supine Combined With Heat/Cold Hot Pack Comments 90/90 PT-OP-S Aquatic Treatment Start: 06/19/18 13:46 Freq: Status: Active Protocol: Document 07/05/18 14:21 [facility] (Rec: 07/05/18 14:28 [facility] [id number]) Aquatics Treatment Pool Entry/Exit Pool Entry/Exit Method Stairs Assistance Independent Comments cues for backward Water Walking fwd/bck/side/july Water Level Chest Level Level of Assistance Verbal Cues Lower Extremity Stretches DKTC, SKTC Body Position Standing Water Level [place] Comments wall hamstrings, hip add, ITB Body Position Standing Water Level Chest Level Equipment Small Noodle Reps/Duration 2x Upper Extremity Exercises hor ab/ad, flex/ext Body Position Hooklying Water Level Chest Level Comments DLS emphasis Spinal Exercises deep water hang Body Position Hooklying Water Level Chest Level Reps/Duration 2' Comments for spinal decompression [place] Activities [place] Activities Bicycle [place] Running Hip Abduction/Adduction Sit Kicks Other Activities Deep water DLS Equipment small noodle, med barbells Duration 30 Manual Techniques Aquatic Joint Mobilizations thoracic PA's; supine with yellow neck float, Aquatic Massage supine with yellow neck float, LE floats: to lumbosacral reg PT-OP-T Assessment and Plan Start: 03/16/18 10:32 Freq: Status: Active Protocol: Document 07/10/18 14:30 SAK (Rec: 07/10/18 17:25 SAK [id number]) Physical Therapy Assessment Impairments Impairments Activity Tolerance Functional Activities Pain Posture ROM Soft Tissue Mobility Strength Goals 4 Impairment ROM and strength Short Term Goal (STG) Patient will be compliant with a HEP for purposes of ROM, and strengthening focused on core stabilization STG Duration 6 wks Custodial Goal (LTG) Patient to demonstrate WNL ROM and strength in trunk and LE' s and demonstrate good dynamic lumbar stabilization statically and dynamically with function LTG Duration 3 months 3 Impairment Oswestry disability index score 26% Short Term Goal (STG) Decrease score to 13% STG Duration 6 wks Custodial Goal (LTG) Decrease Oswestry score to no greater than 10% LTG Duration 3 months 2 Impairment Activity tolerance Short Term Goal (STG) Patient will be able to go grocery shopping without an increase in pain STG Duration 6 wks Bottomer Operator Goal (LTG) Patient will be able to stand or walk for 1 hour without an increase in pain and resume prior activities without an increase in pain LTG Duration 3 months 1 Impairment pain Short Term Goal (STG) Decrease pain to no greater than 4/10 STG Duration 6 wks Custodial Goal (LTG) Decrease pain to no greater than 2/10 LTG Duration 3 months Assessment Summary Assessment Better tolerance for aquatic ex. Focused today's session on use of therapy ball and bands that patient has at home , focus on core stabilization. Encouragement to increase compliance. Physical Therapy Plan Frequency and Duration Frequency of Treatment 2x/Week Duration of Treatment 3 months Plan of Care Start Date 03/16/18 Plan of Care End Date 06/16/18 Therapeutic Interventions Therapeutic Interventions Aquatic Therapy Home Exercise Program Manual Therapy Patient/Caregiver Education Self-Care/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 Soft Tissue Mobilization Taping Therapeutic Activities Therapeutic Exercises Modalities Cold Pack/Ice Massage Electric Stimulation Hot Packs Traction- Mechanical Ultrasound Next Visit Focus/Plan Next Note Type Treatment Note Next Visit Plan Gentle HEP progression, aquatic therapy as patient schedule permits to decrease her pain and improve her activity tolerance and quality of life.
--- NOTE | 2018-07-17 16:36 | PT.OTN ---
Current Diagnoses Other intervertebral disc displacement, lumbar region (07/17/18) Radiculopathy, lumbosacral region (07/17/18) Physical Therapy Treatment Note PT-OP-A Visit Information Start: 03/16/18 10:32 Freq: Status: Active Protocol: Document 07/17/18 14:27 SAK (Rec: 07/17/18 15:21 SAK [id number]) Out-Patient Physical Therapy Visit Information Visit Information Visit Type Treatment Note Visit Start Time 14:30 Visit Stop Time 15:25 Total Visit Minutes 55 Visit Number 13 Number of SIPHON OPERATOR Visits 0 Evaluation Information Evaluation Date 03/16/18 PT-OP-B Current Condition Start: 03/16/18 10:32 Freq: Status: Active Protocol: Document 03/16/18 10:33 SAK (Rec: 03/16/18 10:40 SAK [id number]) Current Condition History of Current Condition Onset Date 2015 Current Complaints persistent, function-limiting LB with radicular symptoms into left LE History of Current Condition Accident 2015; fell in shower with resulting LBP. Poor response to PT at that time. Worst pain with standing, walking. Unable to go grocery shopping or do other activity on feet without increase in pain. [place] best a couple days ago on day of last steoid medication. Using heat, not ice. Activity level minimal. Prior Treatments and Tests Prior PT, had increasing left sided pain. Hadn't had imaging. MRI and x-ray; bulging disc L45. 2 injections, last one December 2017; somewhat helpful in decreasing numbness and tingling down left leg. Also taking oral steroids; just finished. Has had 2 chiropractort appointments; increase in right-sided symptoms. Future Testing and Treatments Planned No further physician appointments scheduled at this time. 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 PT-OP-F Manual Assessment Start: 03/16/18 10:32 Freq: Status: Active Protocol: Document 03/16/18 10:33 SAK (Rec: 03/16/18 16:38 [facility] [id number]) Manual Assessments Soft Tissue Assessment Soft Tissue Mobility Assessment Tender to palpation left lumbar spine L3-S1 Other Manual Assessments Other Manual Assessments tender to palpation left lumbar region PT-OP-G Mobility & Gait Start: 03/16/18 10:32 Freq: Status: Active Protocol: Document 03/16/18 10:33 SAK (Rec: 03/16/18 16:38 [facility] [id number]) OP Mobility Evaluation Bed Mobility Rolling indep Supine to and from Sit indep Transfers Sit to Stand indep OP Gait Assessment Gait Gait Assistance Required: Independent Assistive Devices Assistive Device None Gait Deviations General Gait Pattern Antalgic Factors Limiting Gait Function Factors Limiting Gait Function Pain PT-OP-H Neuro Start: 03/16/18 10:32 Freq: Status: Active Protocol: Document 03/16/18 10:33 SAK (Rec: 03/16/18 16:38 [facility] [id number]) Sensation Evaluation Gross Sensation Gross Sensation WNL Comments Summary Comments denies n/t or weakness, denies drop foot or leg giving way PT-OP-J Posture/Palpation/Skin Start: 03/16/18 10:32 Freq: Status: Active Protocol: Document 03/16/18 10:33 SAK (Rec: 03/16/18 16:38 [facility] [id number]) Posture Evaluation Position Standing T-Spine Posture Flattened L-Spine Posture Increased Lordosis Pelvis Posture (L) Iliac Crest Superior Hip Posture (R) Externally Rotated PT-OP-K Range of Motion Start: 03/16/18 10:32 Freq: Status: Active Protocol: Document 03/16/18 10:33 SAK (Rec: 03/16/18 16:38 [facility] [id number]) Lumbar Spine Range of Motion Lumbar Spine Active Testing Position standing Flexion 40 Extension 10 Rotation Left 45 Rotation Right 45 Lateral Flexion Left 50 Lateral Flexion Right 50 ROM Limitations Pain Comments observable instability Hip Goniometric Range of Motion Hip Measured in Degrees Left Hip ROM WFL No Straight Leg Raise 30 Right Hip ROM WFL No Straight Leg Raise 40 Hip ROM Limitations Hip ROM Limitations Pain Comments pain both left and right with active SLR, muscle tightness with PSLR PT-OP-L Special Tests Start: 03/16/18 10:32 Freq: Status: Active Protocol: Document 03/16/18 10:33 [facility] (Rec: 03/16/18 16:38 [facility] [id number]) Special Tests Lumbar Spine Special Tests Manual Traction Test Results relieving Straight Leg Raise Test Results positive for pain Stork Test Test Results negative mireille Compression Test Results increased pain PT-OP-M Strength Start: 03/16/18 10:32 Freq: Status: Active Protocol: Document 03/16/18 10:33 [facility] (Rec: 03/16/18 16:38 [facility] [id number]) Trunk Strength Trunk Manual Muscle Testing Testing Position Supine Core Stabilization poor Hip Strength Hip Manual Muscle Testing Left Flexion (L2) 4+ Good+ Extension (S1) 3+ Fair+ Abduction 4- Good- External Rotation 4- Good- Internal Rotation 4+ Good+ Right Flexion (L2) 4+ Good+ Extension (S1) 4- Good- Abduction 4- Good- External Rotation 4 Good Internal Rotation 4+ Good+ Knee Strength Knee Manual Muscle Testing Left Flexion (S2) 4 Good Extension (L3) 4+ Good+ Right Flexion (S2) 4 Good Extension (L3) 4+ Good+ Ankle/Foot Strength Ankle and Foot Manual Muscle Testing Left Dorsiflexion (L4) 5 Normal Plantarflexion (S1) 5 Normal Right Dorsiflexion (L4) 5 Normal Plantarflexion (S1) 5 Normal Toe Strength Toe Manual Muscle Testing Left Great Toe Extension 4+ Good+ Right Great Toe Extension 4+ Good+ PT-OP-Q Treatments Start: 03/16/18 10:32 Freq: Status: Active Protocol: Document 07/17/18 14:27 [facility] (Rec: 07/17/18 15:21 [facility] [id number]) Cardio Equipment Recumbent Stepper (Sci-Fit) Duration (Minutes) 8 Resistance 3 Other emphasis on neutral positioning Gym Equipment Therapeutic Ball sitting shoulder ER Ball Size/Color green-65 cm Body Position Sitting Reps/Duration 10x Comments emphasis on core stab with all therapy ball ex LTR Ball Size/Color green-65 cm Body Position Hooklying Reps/Duration 10x Comments small amplitude TrA with leg lowering Ball Size/Color green- 65 cm Body Position Hooklying Reps/Duration 10x rows, shld ext Ball Size/Color green- 65 cm Body Position Sitting Reps/Duration 10x Comments L2 TB, squeezing small ball between legs Therapeutic Exercises Prone Exercises child's pose Reps/Minutes 3x Comments forward and to side Therapeutic Activity Therapeutic Activity lifting Comments emphasis on body mechanics, back protection: bucket, 10# ball Manual Therapy Treatment Soft Tissue Mobilization l/s paraspinals Body Location mireille Mobilization Type Rolling Strumming Intensity/Depth Moderate Body Position Prone QL Body Location left Mobilization Type Rolling Sustained Pressure Intensity/Depth Moderate Body Position Prone Manual Techniques sacral mob counternutation Body Position Prone Reps/Duration 4 min PT-OP-R Modalities Start: 03/16/18 10:32 Freq: Status: Active Protocol: Document 07/17/18 14:27 [facility] (Rec: 07/17/18 15:21 [facility] [id number]) Electric Stimulation Electric Stimulation Interferential Current (IFC) Body Location bilateral lumbar paraspinals Duration (Minutes) 15 Target/Sweep Sweep High/Low High Patient Position Supine Combined With Heat/Cold Hot Pack Comments 90/90 PT-OP-S Aquatic Treatment Start: 06/19/18 13:46 Freq: Status: Active Protocol: Document 07/05/18 14:21 [facility] (Rec: 07/05/18 14:28 [facility] [id number]) Aquatics Treatment Pool Entry/Exit Pool Entry/Exit Method Stairs Assistance Independent Comments cues for backward Water Walking fwd/bck/side/july Water Level Chest Level Level of Assistance Verbal Cues Lower Extremity Stretches DKTC, SKTC Body Position Standing Water Level [place] Comments wall hamstrings, hip add, ITB Body Position Standing Water Level Chest Level Equipment Small Noodle Reps/Duration 2x Upper Extremity Exercises hor ab/ad, flex/ext Body Position Hooklying Water Level Chest Level Comments DLS emphasis Spinal Exercises deep water hang Body Position Hooklying Water Level Chest Level Reps/Duration 2' Comments for spinal decompression [place] Activities [place] Activities Bicycle [place] Running Hip Abduction/Adduction Sit Kicks Other Activities Deep water DLS Equipment small noodle, med barbells Duration 30 Manual Techniques Aquatic Joint Mobilizations thoracic PA's; supine with yellow neck float, Aquatic Massage supine with yellow neck float, LE floats: to lumbosacral reg PT-OP-T Assessment and Plan Start: 03/16/18 10:32 Freq: Status: Active Protocol: Document 07/17/18 14:27 [facility] (Rec: 07/17/18 15:21 SAK [id number]) Physical Therapy Assessment Impairments Impairments Activity Tolerance Functional Activities Pain Posture ROM Soft Tissue Mobility Strength Goals 4 Impairment ROM and strength Short Term Goal (STG) Patient will be compliant with a HEP for purposes of ROM, and strengthening focused on core stabilization STG Duration 6 wks Long-Term Goal (LTG) Patient to demonstrate WNL ROM and strength in trunk and LE' s and demonstrate good dynamic lumbar stabilization statically and dynamically with function LTG Duration 3 months 3 Impairment Oswestry disability index score 26% Short Term Goal (STG) Decrease score to 13% STG Duration 6 wks Long-Term Goal (LTG) Decrease Oswestry score to no greater than 10% LTG Duration 3 months 2 Impairment Activity tolerance Short Term Goal (STG) Patient will be able to go grocery shopping without an increase in pain STG Duration 6 wks Long-Term Goal (LTG) Patient will be able to stand or walk for 1 hour without an increase in pain and resume prior activities without an increase in pain LTG Duration 3 months 1 Impairment pain Short Term Goal (STG) Decrease pain to no greater than 4/10 STG Duration 6 wks Molecular Geneticist Goal (LTG) Decrease pain to no greater than 2/10 LTG Duration 3 months Assessment Summary Assessment Improved HEP compliance and improved standing and walking tolerance noted. Physical Therapy Plan Frequency and Duration Frequency of Treatment 2x/Week Duration of Treatment 3 months Plan of Care Start Date 03/16/18 Plan of Care End Date 06/16/18 Therapeutic Interventions Therapeutic Interventions Aquatic Therapy Home Exercise Program Manual Therapy Patient/Caregiver Education Self-Care/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 Soft Tissue Mobilization Taping Therapeutic Activities Therapeutic Exercises Modalities Cold Pack/Ice Massage Electric Stimulation Hot Packs Traction- Mechanical Ultrasound Next Visit Focus/Plan Next Note Type Treatment Note Next Visit Plan continue combination land and aquatic based PT to decrease patient's pain and improve her functional activity tolerance .
--- NOTE | 2018-07-28 09:05 | PT.OTRE ---
Current Diagnoses Other intervertebral disc displacement, lumbar region (07/17/18) Radiculopathy, lumbosacral region (07/17/18) Past Medical History (Last Reviewed 06/27/18 @ 14:55 by Sheridan Padgett MD) Acne (Chronic ~2000) Eczema (Chronic) Headache (Chronic ~2010) History of recurrent ear infection (Chronic) Migraines (Chronic ~2010) Chicken pox (Resolved ~1995) Seasonal allergies (Resolved) Surgical History (Last Reviewed 06/27/18 @ 14:55 by Sheridan Padgett MD) Anesthesia (Resolved) History of third molar tooth extraction (Resolved ~2008) Provider Visit Care Team Role Provider Type MORGAN Zavala Primary Care Provider Advanced Respiratory Assistant Specialty: Family Practice Address: [address] [place] [address], [id number] Email: [email or web address] Angel Morgan DO Attending Provider Physician Specialty: Physiatry Pain Management Address: [address] [place] [address], [id number] Email: Physical Therapy Re-Evaluation PT-OP-A Visit Information Start: 03/16/18 10:32 Freq: Status: Active Protocol: Document 07/24/18 16:12 [facility] (Rec: 07/24/18 16:12 [facility] [id number]) Out-Patient Physical Therapy Visit Information Visit Information Visit Type Cancellation PT-OP-B Current Condition Start: 03/16/18 10:32 Freq: Status: Active Protocol: Document 03/16/18 10:33 [facility] (Rec: 03/16/18 10:40 [facility] [id number]) Current Condition History of Current Condition Onset Date 2016 Current Complaints persistent, function-limiting LB with radicular symptoms into left LE History of Current Condition Accident 2016; fell in shower with resulting LBP. Poor response to PT at that time. Worst pain with standing, walking. Unable to go grocery shopping or do other activity on feet without increase in pain. [place] [facility] a couple days ago on day of last steoid medication. Using heat, not ice. Activity level minimal. Prior Treatments and Tests Prior PT, had increasing left sided pain. Hadn't had imaging. MRI and x-ray; bulging disc L45. 2 injections, last one December 2017; somewhat helpful in decreasing numbness and tingling down left leg. Also taking oral steroids; just finished. Has had 2 chiropractort appointments; increase in right-sided symptoms. Future Testing and Treatments Planned No further physician appointments scheduled at this time. 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, but continues to work [employer] Functional Limitations- Recreation/ unable to tolerate Hobbies PT-OP-C Subjective Start: 03/16/18 10:32 Freq: Status: Active Protocol: Document 07/17/18 14:27 [facility] (Rec: 07/17/18 15:21 [facility] [id number]) OP-PT Subjective Patient Comments Patient Comments Reports she was able to walk around at work today with less pain, was better at doing her exercises at home. PT-OP-F Manual Assessment Start: 03/16/18 10:32 Freq: Status: Active Protocol: Document 03/16/18 10:33 [facility] (Rec: 03/16/18 16:38 [facility] [id number]) Manual Assessments Soft Tissue Assessment Soft Tissue Mobility Assessment Tender to palpation left lumbar spine L3-S1 Other Manual Assessments Other Manual Assessments tender to palpation left lumbar region PT-OP-G Mobility & Gait Start: 03/16/18 10:32 Freq: Status: Active Protocol: Document 03/16/18 10:33 [facility] (Rec: 03/16/18 16:38 [facility] [id number]) OP Mobility Evaluation Bed Mobility Rolling indep Supine to and from Sit indep Transfers Sit to Stand indep OP Gait Assessment Gait Gait Assistance Required: Independent Assistive Devices Assistive Device None Gait Deviations General Gait Pattern Antalgic Factors Limiting Gait Function Factors Limiting Gait Function Pain PT-OP-H Neuro Start: 03/16/18 10:32 Freq: Status: Active Protocol: Document 03/16/18 10:33 [facility] (Rec: 03/16/18 16:38 [facility] [id number]) Sensation Evaluation Gross Sensation Gross Sensation WNL Comments Summary Comments denies n/t or weakness, denies drop foot or leg giving way PT-OP-J Posture/Palpation/Skin Start: 03/16/18 10:32 Freq: Status: Active Protocol: Document 03/16/18 10:33 [facility] (Rec: 03/16/18 16:38 [facility] [id number]) Posture Evaluation Position Standing T-Spine Posture Flattened L-Spine Posture Increased Lordosis Pelvis Posture (L) Iliac Crest Superior Hip Posture (R) Externally Rotated PT-OP-K Range of Motion Start: 03/16/18 10:32 Freq: Status: Active Protocol: Document 03/16/18 10:33 [facility] (Rec: 03/16/18 16:38 [facility] [id number]) Lumbar Spine Range of Motion Lumbar Spine Active Testing Position standing Flexion 40 Extension 10 Rotation Left 45 Rotation Right 45 Lateral Flexion Left 50 Lateral Flexion Right 50 ROM Limitations Pain Comments observable instability Hip Goniometric Range of Motion Hip Measured in Degrees Left Hip ROM WFL No Straight Leg Raise 30 Right Hip ROM WFL No Straight Leg Raise 40 Hip ROM Limitations Hip ROM Limitations Pain Comments pain both left and right with active SLR, muscle tightness with PSLR PT-OP-L Special Tests Start: 03/16/18 10:32 Freq: Status: Active Protocol: Document 03/16/18 10:33 [facility] (Rec: 03/16/18 16:38 [facility] [id number]) Special Tests Lumbar Spine Special Tests Manual Traction Test Results relieving Straight Leg Raise Test Results positive for pain Stork Test Test Results negative mireille Compression Test Results increased pain PT-OP-M Strength Start: 03/16/18 10:32 Freq: Status: Active Protocol: Document 03/16/18 10:33 [facility] (Rec: 03/16/18 16:38 [facility] [id number]) Trunk Strength Trunk Manual Muscle Testing Testing Position Supine Core Stabilization poor Hip Strength Hip Manual Muscle Testing Left Flexion (L2) 4+ Good+ Extension (S1) 3+ Fair+ Abduction 4- Good- External Rotation 4- Good- Internal Rotation 4+ Good+ Right Flexion (L2) 4+ Good+ Extension (S1) 4- Good- Abduction 4- Good- External Rotation 4 Good Internal Rotation 4+ Good+ Knee Strength Knee Manual Muscle Testing Left Flexion (S2) 4 Good Extension (L3) 4+ Good+ Right Flexion (S2) 4 Good Extension (L3) 4+ Good+ Ankle/Foot Strength Ankle and Foot Manual Muscle Testing Left Dorsiflexion (L4) 5 Normal Plantarflexion (S1) 5 Normal Right Dorsiflexion (L4) 5 Normal Plantarflexion (S1) 5 Normal Toe Strength Toe Manual Muscle Testing Left Great Toe Extension 4+ Good+ Right Great Toe Extension 4+ Good+ PT-OP-Q Treatments Start: 03/16/18 10:32 Freq: Status: Active Protocol: Document 07/17/18 14:27 [facility] (Rec: 07/17/18 15:21 [facility] [id number]) Cardio Equipment Recumbent Stepper (Sci-Fit) Duration (Minutes) 8 Resistance 3 Other emphasis on neutral positioning Gym Equipment Therapeutic Ball sitting shoulder ER Ball Size/Color green-65 cm Body Position Sitting Reps/Duration 10x Comments emphasis on core stab with all therapy ball ex LTR Ball Size/Color green-65 cm Body Position Hooklying Reps/Duration 10x Comments small amplitude TrA with leg lowering Ball Size/Color green- 65 cm Body Position Hooklying Reps/Duration 10x rows, shld ext Ball Size/Color green- 65 cm Body Position Sitting Reps/Duration 10x Comments L2 TB, squeezing small ball between legs Therapeutic Exercises Prone Exercises child's pose Reps/Minutes 3x Comments forward and to side Therapeutic Activity Therapeutic Activity lifting Comments emphasis on body mechanics, back protection: bucket, 10# ball Manual Therapy Treatment Soft Tissue Mobilization l/s paraspinals Body Location mireille Mobilization Type Rolling Strumming Intensity/Depth Moderate Body Position Prone QL Body Location left Mobilization Type Rolling Sustained Pressure Intensity/Depth Moderate Body Position Prone Manual Techniques sacral mob counternutation Body Position Prone Reps/Duration 4 min PT-OP-R Modalities Start: 03/16/18 10:32 Freq: Status: Active Protocol: Document 07/17/18 14:27 [facility] (Rec: 07/17/18 15:21 [facility] [id number]) Electric Stimulation Electric Stimulation Interferential Current (IFC) Body Location bilateral lumbar paraspinals Duration (Minutes) 15 Target/Sweep Sweep High/Low High Patient Position Supine Combined With Heat/Cold Hot Pack Comments 90/90 PT-OP-T Assessment and Plan Start: 03/16/18 10:32 Freq: Status: Active Protocol: Document 07/17/18 14:27 [facility] (Rec: 07/17/18 15:21 [facility] [id number]) Physical Therapy Assessment Impairments Impairments Activity Tolerance Functional Activities Pain Posture ROM Soft Tissue Mobility Strength Goals 4 Impairment ROM and strength Short Term Goal (STG) Patient will be compliant with a HEP for purposes of ROM, and strengthening focused on core stabilization 07/17/18: goal met STG Duration 6 wks Intermediate Goal (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 Best tolerance for dynamic stabilization ex either supine or in aquatic PT , poor tolerance in standing, but overall improved awareness and ability. LTG Duration 3 months 3 Impairment Oswestry disability index score 26% Short Term Goal (STG) Decrease score to no greater than 13% 07/17/18 goal met STG Duration 6 wks Intermediate Goal (LTG) Decrease Oswestry score to no greater than 10% LTG Duration 3 months 2 Impairment Activity tolerance Short Term Goal (STG) Patient will be able to go grocery shopping without an increase in pain 07/17/18: goal progress, able to do very short trip (10 min) STG Duration 6 wks Intermediate Goal (LTG) Patient will be able to stand or walk for 1 hour without an increase in pain and resume prior activities without an increase in pain 07/17/18: goal progress, today for first time reported walk across facility at work without an increase in pain ( aprox 10 min walking) LTG Duration 3 months 1 Impairment pain Short Term Goal (STG) Decrease pain to no greater than 4/10 07/17/18: goal progress, pain variable. STG Duration 6 wks Intermediate Goal (LTG) Decrease pain to no greater than 2/10 07/17/18: goal progress, occasionally down to level of 2 LTG Duration 3 months Assessment Summary Assessment Improved HEP compliance and improved standing and walking tolerance noted. Patient's compliance with her HEP is improving. Pain decreased after aquatic PT. Demonstrating improved understanding of posture and body mechanics contributions to pain. Would recommend further PT to help patient fully achieve her PT goals and return to a more active lifestyle. Physical Therapy Plan Frequency and Duration Frequency of Treatment 2x/Week Duration of Treatment 3 months Plan of Care Start Date 07/17/18 Plan of Care End Date 10/14/18 Therapeutic Interventions Therapeutic Interventions Aquatic Therapy Home Exercise Program Manual Therapy Patient/Caregiver Education Self-Care/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 Soft Tissue Mobilization Taping Therapeutic Activities Therapeutic Exercises Modalities Cold Pack/Ice Massage Electric Stimulation Hot Packs Traction- Mechanical Ultrasound Next Visit Focus/Plan Next Note Type Treatment Note Next Visit Plan continue combination land and aquatic based PT to decrease patient's pain and improve her functional activity tolerance .
--- NOTE | 2018-07-28 09:05 | PT.OPPOC ---
Current Diagnoses Other intervertebral disc displacement, lumbar region (07/17/18) Radiculopathy, lumbosacral region (07/17/18) Provider Visit Care Team Role Provider Type MORGAN Zavala Primary Care Provider Advanced Traffic Technician Specialty: Family Practice Address: [address] [place] [address], [facility] [place], [address] Email: [email or web address] Angel Morgan DO Attending Provider Physician Specialty: Physiatry Pain Management Address: [address] [place] [address], [id number] Email: Plan Of Care PT-OP-T Assessment and Plan Start: 03/16/18 10:32 Freq: Status: Active Protocol: Document 07/17/18 14:27 [facility] (Rec: 07/17/18 15:21 [facility] [id number]) Physical Therapy Assessment Impairments Impairments Activity Tolerance Functional Activities Pain Posture ROM Soft Tissue Mobility Strength Goals 4 Impairment ROM and strength Short Term Goal (STG) Patient will be compliant with a HEP for purposes of ROM, and strengthening focused on core stabilization 07/17/18: goal met STG Duration 6 wks Group Home Goal (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 Best tolerance for dynamic stabilization ex either supine or in aquatic PT , poor tolerance in standing, but overall improved awareness and ability. LTG Duration 3 months 3 Impairment Oswestry disability index score 26% Short Term Goal (STG) Decrease score to no greater than 13% 07/17/18 goal met STG Duration 6 wks Environmental Science Technician Goal (LTG) Decrease Oswestry score to no greater than 10% LTG Duration 3 months 2 Impairment Activity tolerance Short Term Goal (STG) Patient will be able to go grocery shopping without an increase in pain 07/17/18: goal progress, able to do very short trip (10 min) STG Duration 6 wks Group Home Goal (LTG) Patient will be able to stand or walk for 1 hour without an increase in pain and resume prior activities without an increase in pain 07/17/18: goal progress, today for first time reported walk across facility at work without an increase in pain ( aprox 10 min walking) LTG Duration 3 months 1 Impairment pain Short Term Goal (STG) Decrease pain to no greater than 4/10 07/17/18: goal progress, pain variable. STG Duration 6 wks Group Home Goal (LTG) Decrease pain to no greater than 2/10 07/17/18: goal progress, occasionally down to level of 2 LTG Duration 3 months Assessment Summary Assessment Improved HEP compliance and improved standing and walking tolerance noted. Patient's compliance with her HEP is improving. Pain decreased after aquatic PT. Demonstrating improved understanding of posture and body mechanics contributions to pain. Would recommend further PT to help patient fully achieve her PT goals and return to a more active lifestyle. Physical Therapy Plan Frequency and Duration Frequency of Treatment 2x/Week Duration of Treatment 3 months Plan of Care Start Date 07/17/18 Plan of Care End Date 10/14/18 Therapeutic Interventions Therapeutic Interventions Aquatic Therapy Home Exercise Program Manual Therapy Patient/Caregiver Education Self-Care/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 Soft Tissue Mobilization Taping Therapeutic Activities Therapeutic Exercises Modalities Cold Pack/Ice Massage Electric Stimulation Hot Packs Traction- Mechanical Ultrasound Next Visit Focus/Plan Next Note Type Treatment Note Next Visit Plan continue combination land and aquatic based PT to decrease patient's pain and improve her functional activity tolerance . Plan of Care Dates Plan of Care Start Date 07/17/18 Plan of Care End Date 10/14/18 Please Sign and Return: I have reviewed this Plan of Care and certify that the skilled therapy services above are required to meet the patient?s needs. Physician Signature Date Printed Name and Credentials Clinical Instructor Signature Printed Name and Credentials
--- NOTE | 2018-07-28 14:32 | PT.OTN ---
Current Diagnoses Other intervertebral disc displacement, lumbar region (07/17/18) Radiculopathy, lumbosacral region (07/17/18) Physical Therapy Treatment Note PT-OP-A Visit Information Start: 03/16/18 10:32 Freq: Status: Active Protocol: Document 07/28/18 14:25 [facility] (Rec: 07/28/18 14:32 [facility] [id number]) Out-Patient Physical Therapy Visit Information Visit Information Visit Type Aquatic Treatment Note Visit Start Time 12:30 Visit Stop Time 13:15 Total Visit Minutes 45 Visit Number 14 Number of FOOD PREPARATION KITCHEN AIDE Visits 0 Evaluation Information Evaluation Date 03/16/18 PT-OP-B Current Condition Start: 03/16/18 10:32 Freq: Status: Active Protocol: Document 03/16/18 10:33 [facility] (Rec: 03/16/18 10:40 [facility] [id number]) Current Condition History of Current Condition Onset Date 2015 Current Complaints persistent, function-limiting LB with radicular symptoms into left LE History of Current Condition Accident 2015; fell in shower with resulting LBP. Poor response to PT at that time. Worst pain with standing, walking. Unable to go grocery shopping or do other activity on feet without increase in pain. [place] best a couple days ago on day of last steoid medication. Using heat, not ice. Activity level minimal. Prior Treatments and Tests Prior PT, had increasing left sided pain. Hadn't had imaging. MRI and x-ray; bulging disc L45. 2 injections, last one December 2017; somewhat helpful in decreasing numbness and tingling down left leg. Also taking oral steroids; just finished. Has had 2 chiropractort appointments; increase in right-sided symptoms. Future Testing and Treatments Planned No further physician appointments scheduled at this time. 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 Has gotten referral for ergonomic evaluation as recommended by this PT. PT-OP-F Manual Assessment Start: 03/16/18 10:32 Freq: Status: Active Protocol: Document 03/16/18 10:33 [facility] (Rec: 03/16/18 16:38 [facility] [id number]) Manual Assessments Soft Tissue Assessment Soft Tissue Mobility Assessment Tender to palpation left lumbar spine L3-S1 Other Manual Assessments Other Manual Assessments tender to palpation left lumbar region PT-OP-G Mobility & Gait Start: 03/16/18 10:32 Freq: Status: Active Protocol: Document 03/16/18 10:33 [facility] (Rec: 03/16/18 16:38 [facility] [id number]) OP Mobility Evaluation Bed Mobility Rolling indep Supine to and from Sit indep Transfers Sit to Stand indep OP Gait Assessment Gait Gait Assistance Required: Independent Assistive Devices Assistive Device None Gait Deviations General Gait Pattern Antalgic Factors Limiting Gait Function Factors Limiting Gait Function Pain PT-OP-H Neuro Start: 03/16/18 10:32 Freq: Status: Active Protocol: Document 03/16/18 10:33 [facility] (Rec: 03/16/18 16:38 [facility] [id number]) Sensation Evaluation Gross Sensation Gross Sensation WNL Comments Summary Comments denies n/t or weakness, denies drop foot or leg giving way PT-OP-J Posture/Palpation/Skin Start: 03/16/18 10:32 Freq: Status: Active Protocol: Document 03/16/18 10:33 [facility] (Rec: 03/16/18 16:38 [facility] [id number]) Posture Evaluation Position Standing T-Spine Posture Flattened L-Spine Posture Increased Lordosis Pelvis Posture (L) Iliac Crest Superior Hip Posture (R) Externally Rotated PT-OP-K Range of Motion Start: 03/16/18 10:32 Freq: Status: Active Protocol: Document 03/16/18 10:33 [facility] (Rec: 03/16/18 16:38 [facility] [id number]) Lumbar Spine Range of Motion Lumbar Spine Active Testing Position standing Flexion 40 Extension 10 Rotation Left 45 Rotation Right 45 Lateral Flexion Left 50 Lateral Flexion Right 50 ROM Limitations Pain Comments observable instability Hip Goniometric Range of Motion Hip Measured in Degrees Left Hip ROM WFL No Straight Leg Raise 30 Right Hip ROM WFL No Straight Leg Raise 40 Hip ROM Limitations Hip ROM Limitations Pain Comments pain both left and right with active SLR, muscle tightness with PSLR PT-OP-L Special Tests Start: 03/16/18 10:32 Freq: Status: Active Protocol: Document 03/16/18 10:33 [facility] (Rec: 03/16/18 16:38 [facility] [id number]) Special Tests Lumbar Spine Special Tests Manual Traction Test Results relieving Straight Leg Raise Test Results positive for pain Stork Test Test Results negative mireille Compression Test Results increased pain PT-OP-M Strength Start: 03/16/18 10:32 Freq: Status: Active Protocol: Document 03/16/18 10:33 [facility] (Rec: 03/16/18 16:38 [facility] [id number]) Trunk Strength Trunk Manual Muscle Testing Testing Position Supine Core Stabilization poor Hip Strength Hip Manual Muscle Testing Left Flexion (L2) 4+ Good+ Extension (S1) 3+ Fair+ Abduction 4- Good- External Rotation 4- Good- Internal Rotation 4+ Good+ Right Flexion (L2) 4+ Good+ Extension (S1) 4- Good- Abduction 4- Good- External Rotation 4 Good Internal Rotation 4+ Good+ Knee Strength Knee Manual Muscle Testing Left Flexion (S2) 4 Good Extension (L3) 4+ Good+ Right Flexion (S2) 4 Good Extension (L3) 4+ Good+ Ankle/Foot Strength Ankle and Foot Manual Muscle Testing Left Dorsiflexion (L4) 5 Normal Plantarflexion (S1) 5 Normal Right Dorsiflexion (L4) 5 Normal Plantarflexion (S1) 5 Normal Toe Strength Toe Manual Muscle Testing Left Great Toe Extension 4+ Good+ Right Great Toe Extension 4+ Good+ PT-OP-Q Treatments Start: 03/16/18 10:32 Freq: Status: Active Protocol: Document 07/17/18 14:27 [facility] (Rec: 07/17/18 15:21 [facility] [id number]) Cardio Equipment Recumbent Stepper (Sci-Fit) Duration (Minutes) 8 Resistance 3 Other emphasis on neutral positioning Gym Equipment Therapeutic Ball sitting shoulder ER Ball Size/Color green-65 cm Body Position Sitting Reps/Duration 10x Comments emphasis on core stab with all therapy ball ex LTR Ball Size/Color green-65 cm Body Position Hooklying Reps/Duration 10x Comments small amplitude TrA with leg lowering Ball Size/Color green- 65 cm Body Position Hooklying Reps/Duration 10x rows, shld ext Ball Size/Color green- 65 cm Body Position Sitting Reps/Duration 10x Comments L2 TB, squeezing small ball between legs Therapeutic Exercises Prone Exercises child's pose Reps/Minutes 3x Comments forward and to side Therapeutic Activity Therapeutic Activity lifting Comments emphasis on body mechanics, back protection: bucket, 10# ball Manual Therapy Treatment Soft Tissue Mobilization l/s paraspinals Body Location mireille Mobilization Type Rolling Strumming Intensity/Depth Moderate Body Position Prone QL Body Location left Mobilization Type Rolling Sustained Pressure Intensity/Depth Moderate Body Position Prone Manual Techniques sacral mob counternutation Body Position Prone Reps/Duration 4 min PT-OP-R Modalities Start: 03/16/18 10:32 Freq: Status: Active Protocol: Document 07/17/18 14:27 [facility] (Rec: 07/17/18 15:21 [facility] [id number]) Electric Stimulation Electric Stimulation Interferential Current (IFC) Body Location bilateral lumbar paraspinals Duration (Minutes) 15 Target/Sweep Sweep High/Low High Patient Position Supine Combined With Heat/Cold Hot Pack Comments 90/90 PT-OP-S Aquatic Treatment Start: 06/19/18 13:46 Freq: Status: Active Protocol: Document 07/28/18 14:25 [facility] (Rec: 07/28/18 14:32 [facility] [id number]) Aquatics Treatment Pool Entry/Exit Pool Entry/Exit Method Stairs Assistance Independent Comments cues for backward Water Walking fwd/bck/side/july Water Level Chest Level Level of Assistance Verbal Cues Comments with UE's for drag Upper Extremity Exercises hor ab/ad, flex/ext Body Position Standing Water Level Chest Level Comments DLS emphasis Spinal Exercises deep water hang Body Position Standing Water Level Chest Level Reps/Duration 2' Comments for spinal decompression [place] Activities [place] Activities Bicycle [place] Running Hip Abduction/Adduction Sit Kicks Other Activities Deep water DLS Equipment flotation belt (L) barbells Duration 30 Comments 9 rounds of 30:30 intervals: run x5, flex/ext x2, ab/adx2 Manual Techniques Aquatic Joint Mobilizations thoracic PA's; supine with yellow neck float, Aquatic Massage supine with yellow neck float, LE floats: to lumbosacral reg PT-OP-T Assessment and Plan Start: 03/16/18 10:32 Freq: Status: Active Protocol: Document 07/28/18 14:25 [facility] (Rec: 07/28/18 14:32 [facility] [id number]) Physical Therapy Assessment Impairments Impairments Activity Tolerance Functional Activities Pain Posture ROM Soft Tissue Mobility Strength Goals 4 Impairment ROM and strength Short Term Goal (STG) Patient will be compliant with a HEP for purposes of ROM, and strengthening focused on core stabilization 07/17/18: goal met STG Duration 6 wks [employer] Goal (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 Best tolerance for dynamic stabilization ex either supine or in aquatic PT , poor tolerance in standing, but overall improved awareness and ability. LTG Duration 3 months 3 Impairment Oswestry disability index score 26% Short Term Goal (STG) Decrease score to no greater than 13% 07/17/18 goal met STG Duration 6 wks [facility] Goal (LTG) Decrease Oswestry score to no greater than 10% LTG Duration 3 months 2 Impairment Activity tolerance Short Term Goal (STG) Patient will be able to go grocery shopping without an increase in pain 07/17/18: goal progress, able to do very short trip (10 min) STG Duration 6 wks [facility] Goal (LTG) Patient will be able to stand or walk for 1 hour without an increase in pain and resume prior activities without an increase in pain 07/17/18: goal progress, today for first time reported walk across facility at work without an increase in pain ( aprox 10 min walking) LTG Duration 3 months 1 Impairment pain Short Term Goal (STG) Decrease pain to no greater than 4/10 07/17/18: goal progress, pain variable. STG Duration 6 wks [facility] Goal (LTG) Decrease pain to no greater than 2/10 07/17/18: goal progress, occasionally down to level of 2 LTG Duration 3 months Assessment Summary Assessment increased intensity of pain though with some apparent centralization of symptoms. Increased intensity of aquatic ex tolerated well, except for intervals with hip ab/ad felt different in right LE. Physical Therapy Plan Frequency and Duration Frequency of Treatment 2x/Week Duration of Treatment 3 months Plan of Care Start Date 07/05/18 Plan of Care End Date 10/02/18 Therapeutic Interventions Therapeutic Interventions Aquatic Therapy Home Exercise Program Manual Therapy Patient/Caregiver Education Self-Care/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 Soft Tissue Mobilization Taping Therapeutic Activities Therapeutic Exercises Modalities Cold Pack/Ice Massage Electric Stimulation Hot Packs Traction- Mechanical Ultrasound Next Visit Focus/Plan Next Note Type Treatment Note Next Visit Plan continue combination land and aquatic based PT to decrease patient's pain and improve her functional activity tolerance .
--- NOTE | 2018-08-17 16:38 | PT.OTN ---
Current Diagnoses Other intervertebral disc displacement, lumbar region (08/17/18) Radiculopathy, lumbosacral region (08/17/18) Physical Therapy Treatment Note PT-OP-A Visit Information Start: 03/16/18 10:32 Freq: Status: Active Protocol: Document 08/17/18 15:17 SAK (Rec: 08/17/18 15:44 SAK [id number]) Out-Patient Physical Therapy Visit Information Visit Information Visit Type Treatment Note Visit Start Time 15:15 Visit Stop Time 16:00 Total Visit Minutes 45 Visit Number 15 Number of WIRE CHIEF Visits 0 PT-OP-B Current Condition Start: 03/16/18 10:32 Freq: Status: Active Protocol: Document 03/16/18 10:33 SAK (Rec: 03/16/18 10:40 SAK [id number]) Current Condition History of Current Condition Onset Date 2015 Current Complaints persistent, function-limiting LB with radicular symptoms into left LE History of Current Condition Accident 2015; fell in shower with resulting LBP. Poor response to PT at that time. Worst pain with standing, walking. Unable to go grocery shopping or do other activity on feet without increase in pain. [place] best a couple days ago on day of last steoid medication. Using heat, not ice. Activity level minimal. Prior Treatments and Tests Prior PT, had increasing left sided pain. Hadn't had imaging. MRI and x-ray; bulging disc L45. 2 injections, last one December 2017; somewhat helpful in decreasing numbness and tingling down left leg. Also taking oral steroids; just finished. Has had 2 chiropractort appointments; increase in right-sided symptoms. Future Testing and Treatments Planned No further physician appointments scheduled at this time. 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 PT-OP-F Manual Assessment Start: 03/16/18 10:32 Freq: Status: Active Protocol: Document 03/16/18 10:33 SAK (Rec: 03/16/18 16:38 SAK [id number]) Manual Assessments Soft Tissue Assessment Soft Tissue Mobility Assessment Tender to palpation left lumbar spine L3-S1 Other Manual Assessments Other Manual Assessments tender to palpation left lumbar region PT-OP-G Mobility & Gait Start: 03/16/18 10:32 Freq: Status: Active Protocol: Document 03/16/18 10:33 SAK (Rec: 03/16/18 16:38 SAK [id number]) OP Mobility Evaluation Bed Mobility Rolling indep Supine to and from Sit indep Transfers Sit to Stand indep OP Gait Assessment Gait Gait Assistance Required: Independent Assistive Devices Assistive Device None Gait Deviations General Gait Pattern Antalgic Factors Limiting Gait Function Factors Limiting Gait Function Pain PT-OP-H Neuro Start: 03/16/18 10:32 Freq: Status: Active Protocol: Document 03/16/18 10:33 SAK (Rec: 03/16/18 16:38 [facility] [id number]) Sensation Evaluation Gross Sensation Gross Sensation WNL Comments Summary Comments denies n/t or weakness, denies drop foot or leg giving way PT-OP-J Posture/Palpation/Skin Start: 03/16/18 10:32 Freq: Status: Active Protocol: Document 03/16/18 10:33 SAK (Rec: 03/16/18 16:38 [facility] [id number]) Posture Evaluation Position Standing T-Spine Posture Flattened L-Spine Posture Increased Lordosis Pelvis Posture (L) Iliac Crest Superior Hip Posture (R) Externally Rotated PT-OP-K Range of Motion Start: 03/16/18 10:32 Freq: Status: Active Protocol: Document 03/16/18 10:33 SAK (Rec: 03/16/18 16:38 SAK [id number]) Lumbar Spine Range of Motion Lumbar Spine Active Testing Position standing Flexion 40 Extension 10 Rotation Left 45 Rotation Right 45 Lateral Flexion Left 50 Lateral Flexion Right 50 ROM Limitations Pain Comments observable instability Hip Goniometric Range of Motion Hip Measured in Degrees Left Hip ROM WFL No Straight Leg Raise 30 Right Hip ROM WFL No Straight Leg Raise 40 Hip ROM Limitations Hip ROM Limitations Pain Comments pain both left and right with active SLR, muscle tightness with PSLR PT-OP-L Special Tests Start: 03/16/18 10:32 Freq: Status: Active Protocol: Document 03/16/18 10:33 [facility] (Rec: 03/16/18 16:38 [facility] [id number]) Special Tests Lumbar Spine Special Tests Manual Traction Test Results relieving Straight Leg Raise Test Results positive for pain Stork Test Test Results negative mireille Compression Test Results increased pain PT-OP-M Strength Start: 03/16/18 10:32 Freq: Status: Active Protocol: Document 03/16/18 10:33 [facility] (Rec: 03/16/18 16:38 [facility] [id number]) Trunk Strength Trunk Manual Muscle Testing Testing Position Supine Core Stabilization poor Hip Strength Hip Manual Muscle Testing Left Flexion (L2) 4+ Good+ Extension (S1) 3+ Fair+ Abduction 4- Good- External Rotation 4- Good- Internal Rotation 4+ Good+ Right Flexion (L2) 4+ Good+ Extension (S1) 4- Good- Abduction 4- Good- External Rotation 4 Good Internal Rotation 4+ Good+ Knee Strength Knee Manual Muscle Testing Left Flexion (S2) 4 Good Extension (L3) 4+ Good+ Right Flexion (S2) 4 Good Extension (L3) 4+ Good+ Ankle/Foot Strength Ankle and Foot Manual Muscle Testing Left Dorsiflexion (L4) 5 Normal Plantarflexion (S1) 5 Normal Right Dorsiflexion (L4) 5 Normal Plantarflexion (S1) 5 Normal Toe Strength Toe Manual Muscle Testing Left Great Toe Extension 4+ Good+ Right Great Toe Extension 4+ Good+ PT-OP-Q Treatments Start: 03/16/18 10:32 Freq: Status: Active Protocol: Document 08/17/18 15:17 [facility] (Rec: 08/17/18 15:44 [facility] [id number]) Cardio Equipment Recumbent Stepper (Sci-Fit) Duration (Minutes) 10 Resistance 3 Other emphasis on neutral positioning Gym Equipment Therapeutic Ball sitting shoulder ER Ball Size/Color green-65 cm Body Position Sitting Reps/Duration 10x Comments emphasis on core stab with all therapy ball ex LTR Ball Size/Color green-65 cm Body Position Hooklying Reps/Duration 10x Comments small amplitude TrA with leg lowering Ball Size/Color green- 65 cm Body Position Hooklying Reps/Duration 10x leg lift Ball Size/Color green-65 cm Body Position Sitting Reps/Duration 10x Pelvic circles Exercise Details Pelvic tilts, lateral flexion, and circles Ball Size/Color Green - 65 cm Body Position Sitting Reps/Duration 10x Therapeutic Exercises Supine Exercises single leg lowering DLS Reps/Minutes 5x Comments single leg at a time Bridging Supine Exercise Name segmental bridge Comments painfree ROM Prone Exercises child's pose Prone Exercise Name wide knees, knees together Reps/Minutes 3x Comments forward and to side Manual Therapy Treatment Soft Tissue Mobilization l/s paraspinals Body Location mireille Mobilization Type Rolling Strumming Intensity/Depth Moderate Body Position Prone QL Body Location left Mobilization Type Rolling Sustained Pressure Intensity/Depth Moderate Body Position Prone Manual Techniques sacral mob counternutation Body Position Prone Reps/Duration 5 min Self-Care/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 Treatment Education Patient Education Home Exercise Program Posture PT-OP-R Modalities Start: 03/16/18 10:32 Freq: Status: Active Protocol: Document 08/17/18 15:17 [facility] (Rec: 08/17/18 16:37 [facility] [id number]) Electric Stimulation Electric Stimulation Interferential Current (IFC) Comments unable today due to time constraints PT-OP-S Aquatic Treatment Start: 06/19/18 13:46 Freq: Status: Active Protocol: Document 07/28/18 14:25 SAK (Rec: 07/28/18 14:32 [facility] [id number]) Aquatics Treatment Pool Entry/Exit Pool Entry/Exit Method Stairs Assistance Independent Comments cues for backward Water Walking fwd/bck/side/july Water Level Chest Level Level of Assistance Verbal Cues Comments with UE's for drag Upper Extremity Exercises hor ab/ad, flex/ext Body Position Standing Water Level Chest Level Comments DLS emphasis Spinal Exercises deep water hang Body Position Standing Water Level Chest Level Reps/Duration 2' Comments for spinal decompression [place] Activities [place] Activities Bicycle Cross [place] Running Hip Abduction/Adduction Sit Kicks Other Activities Deep water DLS Equipment flotation belt (L) barbells Duration 30 Comments 9 rounds of 30:30 intervals: run x5, flex/ext x2, ab/adx2 Manual Techniques Aquatic Joint Mobilizations thoracic PA's; supine with yellow neck float, Aquatic Massage supine with yellow neck float, LE floats: to lumbosacral reg PT-OP-T Assessment and Plan Start: 03/16/18 10:32 Freq: Status: Active Protocol: Document 08/17/18 15:17 [facility] (Rec: 08/17/18 16:37 [facility] [id number]) Physical Therapy Assessment Impairments Impairments Activity Tolerance Functional Activities Pain Posture ROM Soft Tissue Mobility Strength Goals 4 Impairment ROM and strength Short Term Goal (STG) Patient will be compliant with a HEP for purposes of ROM, and strengthening focused on core stabilization 07/17/18: goal met STG Duration 6 wks Hand Packer/Packager Goal (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 Best tolerance for dynamic stabilization ex either supine or in aquatic PT , poor tolerance in standing, but overall improved awareness and ability. LTG Duration 3 months 3 Impairment Oswestry disability index score 26% Short Term Goal (STG) Decrease score to no greater than 13% 07/17/18 goal met STG Duration 6 wks Hand Packer/Packager Goal (LTG) Decrease Oswestry score to no greater than 10% LTG Duration 3 months 2 Impairment Activity tolerance Short Term Goal (STG) Patient will be able to go grocery shopping without an increase in pain 07/17/18: goal progress, able to do very short trip (10 min) STG Duration 6 wks Longterm Goal (LTG) Patient will be able to stand or walk for 1 hour without an increase in pain and resume prior activities without an increase in pain 07/17/18: goal progress, today for first time reported walk across facility at work without an increase in pain ( aprox 10 min walking) LTG Duration 3 months 1 Impairment pain Short Term Goal (STG) Decrease pain to no greater than 4/10 07/17/18: goal progress, pain variable. STG Duration 6 wks Longterm Goal (LTG) Decrease pain to no greater than 2/10 07/17/18: goal progress, occasionally down to level of 2 LTG Duration 3 months Assessment Summary Assessment Patient has difficulty with segmental lumbar movement especially into flexion and difficulty with DLS supine. Overall has noted significant improvement in her level of pain and ability to tolerate increased activity over the past month. Continues to benefit from physical therapy. Physical Therapy Plan Frequency and Duration Frequency of Treatment 2x/Week Duration of Treatment 3 months Plan of Care Start Date 07/05/18 Plan of Care End Date 10/02/18 Therapeutic Interventions Therapeutic Interventions Aquatic Therapy Home Exercise Program Manual Therapy Patient/Caregiver Education Self-Care/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 Soft Tissue Mobilization Taping Therapeutic Activities Therapeutic Exercises Modalities Cold Pack/Ice Massage Electric Stimulation Hot Packs Traction- Mechanical Ultrasound Next Visit Focus/Plan Next Note Type Treatment Note Next Visit Plan emphasis on improving segmental lumbar ROM, and dynamic lumbar stabilization to decrease pain and improve her function.
--- NOTE | 2018-08-24 16:28 | PT.OTN ---
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 Poor response to PT at that time. Worst pain with standing, walking. Unable to go grocery shopping or do other activity on feet without increase in pain. [place] best a couple days ago on day of last steoid medication. Using heat, not ice. Activity level minimal. Prior Treatments and Tests Prior PT, had increasing left sided pain. Hadn't had imaging. MRI and x-ray; bulging disc L45. 2 injections, last one December 2017; somewhat helpful in decreasing numbness and tingling down left leg. Also taking oral steroids; just finished. Has had 2 chiropractort appointments; increase in right-sided symptoms. Future Testing and Treatments Planned No further physician appointments scheduled at this time. 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 Having hard time motivating herself to become more physically active, though HEP compliance has improved. Forgot to bring therapy ball in to have it blown up. PT-OP-F Manual Assessment Start: 03/16/18 10:32 Freq: Status: Active Protocol: Document 03/16/18 10:33 SAK (Rec: 03/16/18 16:38 SAK [id number]) Manual Assessments Soft Tissue Assessment Soft Tissue Mobility Assessment Tender to palpation left lumbar spine L3-S1 Other Manual Assessments Other Manual Assessments tender to palpation left lumbar region PT-OP-G Mobility & Gait Start: 03/16/18 10:32 Freq: Status: Active Protocol: Document 03/16/18 10:33 SAK (Rec: 03/16/18 16:38 SAK [id number]) OP Mobility Evaluation Bed Mobility Rolling indep Supine to and from Sit indep Transfers Sit to Stand indep OP Gait Assessment Gait Gait Assistance Required: Independent Assistive Devices Assistive Device None Gait Deviations General Gait Pattern Antalgic Factors Limiting Gait Function Factors Limiting Gait Function Pain PT-OP-H Neuro Start: 03/16/18 10:32 Freq: Status: Active Protocol: Document 03/16/18 10:33 SAK (Rec: 03/16/18 16:38 [facility] [id number]) Sensation Evaluation Gross Sensation Gross Sensation WNL Comments Summary Comments denies n/t or weakness, denies drop foot or leg giving way PT-OP-J Posture/Palpation/Skin Start: 03/16/18 10:32 Freq: Status: Active Protocol: Document 03/16/18 10:33 SAK (Rec: 03/16/18 16:38 [facility] [id number]) Posture Evaluation Position Standing T-Spine Posture Flattened L-Spine Posture Increased Lordosis Pelvis Posture (L) Iliac Crest Superior Hip Posture (R) Externally Rotated PT-OP-K Range of Motion Start: 03/16/18 10:32 Freq: Status: Active Protocol: Document 03/16/18 10:33 SAK (Rec: 03/16/18 16:38 SAK [id number]) Lumbar Spine Range of Motion Lumbar Spine Active Testing Position standing Flexion 40 Extension 10 Rotation Left 45 Rotation Right 45 Lateral Flexion Left 50 Lateral Flexion Right 50 ROM Limitations Pain Comments observable instability Hip Goniometric Range of Motion Hip Measured in Degrees Left Hip ROM WFL No Straight Leg Raise 30 Right Hip ROM WFL No Straight Leg Raise 40 Hip ROM Limitations Hip ROM Limitations Pain Comments pain both left and right with active SLR, muscle tightness with PSLR PT-OP-L Special Tests Start: 03/16/18 10:32 Freq: Status: Active Protocol: Document 03/16/18 10:33 [facility] (Rec: 03/16/18 16:38 [facility] [id number]) Special Tests Lumbar Spine Special Tests Manual Traction Test Results relieving Straight Leg Raise Test Results positive for pain Stork Test Test Results negative mireille Compression Test Results increased pain PT-OP-M Strength Start: 03/16/18 10:32 Freq: Status: Active Protocol: Document 03/16/18 10:33 [facility] (Rec: 03/16/18 16:38 [facility] [id number]) Trunk Strength Trunk Manual Muscle Testing Testing Position Supine Core Stabilization poor Hip Strength Hip Manual Muscle Testing Left Flexion (L2) 4+ Good+ Extension (S1) 3+ Fair+ Abduction 4- Good- External Rotation 4- Good- Internal Rotation 4+ Good+ Right Flexion (L2) 4+ Good+ Extension (S1) 4- Good- Abduction 4- Good- External Rotation 4 Good Internal Rotation 4+ Good+ Knee Strength Knee Manual Muscle Testing Left Flexion (S2) 4 Good Extension (L3) 4+ Good+ Right Flexion (S2) 4 Good Extension (L3) 4+ Good+ Ankle/Foot Strength Ankle and Foot Manual Muscle Testing Left Dorsiflexion (L4) 5 Normal Plantarflexion (S1) 5 Normal Right Dorsiflexion (L4) 5 Normal Plantarflexion (S1) 5 Normal Toe Strength Toe Manual Muscle Testing Left Great Toe Extension 4+ Good+ Right Great Toe Extension 4+ Good+ PT-OP-Q Treatments Start: 03/16/18 10:32 Freq: Status: Active Protocol: Document 08/24/18 15:16 [facility] (Rec: 08/24/18 15:34 [facility] [id number]) Cardio Equipment Recumbent Stepper (Sci-Fit) Duration (Minutes) 10 Resistance 3 Other emphasis on neutral positioning Gym Equipment Therapeutic Ball LTR Ball Size/Color green-65 cm Body Position Hooklying Reps/Duration 10x Comments small amplitude TrA with leg lowering Ball Size/Color green- 65 cm Body Position Hooklying Reps/Duration 10x leg lift Ball Size/Color green-65 cm Body Position Sitting Reps/Duration 10x Pelvic circles Exercise Details Pelvic tilts, lateral flexion, and circles Ball Size/Color Green - 65 cm Body Position Sitting Reps/Duration 10x Therapeutic Exercises Prone Exercises opp UE/LE lift Reps/Minutes 6x Comments pain-free ROM child's pose Prone Exercise Name wide knees, knees together Reps/Minutes 3x Comments forward and to side Standing Exercises single leg stand for stabilization Reps/Minutes 5x ea Gait Training Gait Activity gait with mirror for visual feedback Treatment Focus symmetry, gluteal activation gait analysis on [facility] with video Description review video with patient Comments noted decreased trunk rotation , decreased stance time right, increased foot circumduction right Manual Therapy Treatment Manual Techniques sacral mob counternutation Body Position Prone Reps/Duration 5 min PT-OP-R Modalities Start: 03/16/18 10:32 Freq: Status: Active Protocol: Document 08/24/18 15:16 [facility] (Rec: 08/24/18 16:25 [facility] [id number]) Electric Stimulation Electric Stimulation Interferential Current (IFC) Body Location mireille lumbar paraspinals Duration (Minutes) 15 Target/Sweep Sweep High/Low High Patient Position Hooklying Combined With Heat/Cold Hot Pack Comments 90/90 PT-OP-S Aquatic Treatment Start: 06/19/18 13:46 Freq: Status: Active Protocol: Document 07/28/18 14:25 SAK (Rec: 07/28/18 14:32 [facility] [id number]) Aquatics Treatment Pool Entry/Exit Pool Entry/Exit Method Stairs Assistance Independent Comments cues for backward Water Walking fwd/bck/side/july Water Level Chest Level Level of Assistance Verbal Cues Comments with UE's for drag Upper Extremity Exercises hor ab/ad, flex/ext Body Position Standing Water Level Chest Level Comments DLS emphasis Spinal Exercises deep water hang Body Position Standing Water Level Chest Level Reps/Duration 2' Comments for spinal decompression Rockwell Activities Rockwell Activities Bicycle Cross Country Running Hip Abduction/Adduction Sit Kicks Other Activities Deep water DLS Equipment flotation belt (L) barbells Duration 30 Comments 9 rounds of 30:30 intervals: run x5, flex/ext x2, ab/adx2 Manual Techniques Aquatic Joint Mobilizations thoracic PA's; supine with yellow neck float, Aquatic Massage supine with yellow neck float, LE floats: to lumbosacral reg PT-OP-T Assessment and Plan Start: 03/16/18 10:32 Freq: Status: Active Protocol: Document 08/24/18 15:16 [facility] (Rec: 08/24/18 16:25 [facility] [id number]) Physical Therapy Assessment Impairments Impairments Activity Tolerance Functional Activities Pain Posture ROM Soft Tissue Mobility Strength Goals 4 Impairment ROM and strength Short Term Goal (STG) Patient will be compliant with a HEP for purposes of ROM, and strengthening focused on core stabilization 07/17/18: goal met STG Duration 6 wks 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 Best tolerance for dynamic stabilization ex either supine or in aquatic PT , poor tolerance in standing, but overall improved awareness and ability. 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 STG Duration 6 wks Usp Goal (LTG) Decrease pain to no greater than 2/10 07/17/18: goal progress, occasionally down to level of 2 LTG Duration 3 months Assessment Summary Assessment Patient demonstrating improving postural awareness, review of gait mechanics revealed increased right foot circumduction, decreased stance time and stability on right, decreased trunk rotation, decreased gluteal activation. prone UE/LE lift painful with lift of right LE and left UE though able to do with decreased lift without pain. Continue to encourage exercise in pain-free ROM and intensity. Further discussion today of sitting alignment at desk and encouraged to do desk stretches to decrease pain and stiffness. Physical Therapy Plan Frequency and Duration Frequency of Treatment 2x/Week Duration of Treatment 3 months Plan of Care Start Date 07/05/18 Plan of Care End Date 10/02/18 Therapeutic Interventions Therapeutic Interventions Aquatic Therapy Home Exercise Program Manual Therapy Patient/Caregiver Education Self-Care/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 Soft Tissue Mobilization Taping Therapeutic Activities Therapeutic Exercises Modalities Cold Pack/Ice Massage Electric Stimulation Hot Packs Traction- Mechanical Ultrasound Next Visit Focus/Plan Next Note Type Treatment Note Next Visit Plan review gait mechanics, progress therapy ball and other core stabilzation ex. QL stretching. Patient to initiate walking program.
--- NOTE | 2018-09-01 14:53 | PT.OTN ---
Current Diagnoses Other intervertebral disc displacement, lumbar region (09/01/18) Radiculopathy, lumbosacral region (09/01/18) Physical Therapy Treatment Note PT-OP-A Visit Information Start: 03/16/18 10:32 Freq: Status: Active Protocol: Document 09/01/18 10:15 LJ (Rec: 09/01/18 14:53 LJ [id number]) Out-Patient Physical Therapy Visit Information Visit Information Visit Type Aquatic Treatment Note Visit Start Time 10:15 Visit Stop Time 11:00 Total Visit Minutes 45 Visit Number 17 Number of HEAD BANDER AND LINER OPERATOR Visits 1 PT-OP-B Current Condition Start: 03/16/18 10:32 Freq: Status: Active Protocol: Document 03/16/18 10:33 SAK (Rec: 03/16/18 10:40 SAK [id number]) Current Condition History of Current Condition Onset Date 2015 Current Complaints persistent, function-limiting LB with radicular symptoms into left LE History of Current Condition Accident 2015; fell in shower with resulting LBP. Poor response to PT at that time. Worst pain with standing, walking. Unable to go grocery shopping or do other activity on feet without increase in pain. [facility] best a couple days ago on day of last steoid medication. Using heat, not ice. Activity level minimal. Prior Treatments and Tests Prior PT, had increasing left sided pain. Hadn't had imaging. MRI and x-ray; bulging disc L45. 2 injections, last one December 2017; somewhat helpful in decreasing numbness and tingling down left leg. Also taking oral steroids; just finished. Has had 2 chiropractort appointments; increase in right-sided symptoms. Future Testing and Treatments Planned No further physician appointments scheduled at this time. 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 Says she drove for longer than usual and thinks thats why she is sore PT-OP-F Manual Assessment Start: 03/16/18 10:32 Freq: Status: Active Protocol: Document 03/16/18 10:33 SAK (Rec: 03/16/18 16:38 SAK [id number]) Manual Assessments Soft Tissue Assessment Soft Tissue Mobility Assessment Tender to palpation left lumbar spine L3-S1 Other Manual Assessments Other Manual Assessments tender to palpation left lumbar region PT-OP-G Mobility & Gait Start: 03/16/18 10:32 Freq: Status: Active Protocol: Document 03/16/18 10:33 SAK (Rec: 03/16/18 16:38 SAK [id number]) OP Mobility Evaluation Bed Mobility Rolling indep Supine to and from Sit indep Transfers Sit to Stand indep OP Gait Assessment Gait Gait Assistance Required: Independent Assistive Devices Assistive Device None Gait Deviations General Gait Pattern Antalgic Factors Limiting Gait Function Factors Limiting Gait Function Pain PT-OP-H Neuro Start: 03/16/18 10:32 Freq: Status: Active Protocol: Document 03/16/18 10:33 SAK (Rec: 03/16/18 16:38 SAK [id number]) Sensation Evaluation Gross Sensation Gross Sensation WNL Comments Summary Comments denies n/t or weakness, denies drop foot or leg giving way PT-OP-J Posture/Palpation/Skin Start: 03/16/18 10:32 Freq: Status: Active Protocol: Document 03/16/18 10:33 SAK (Rec: 03/16/18 16:38 SAK [id number]) Posture Evaluation Position Standing T-Spine Posture Flattened L-Spine Posture Increased Lordosis Pelvis Posture (L) Iliac Crest Superior Hip Posture (R) Externally Rotated PT-OP-K Range of Motion Start: 03/16/18 10:32 Freq: Status: Active Protocol: Document 03/16/18 10:33 SAK (Rec: 03/16/18 16:38 SAK [id number]) Lumbar Spine Range of Motion Lumbar Spine Active Testing Position standing Flexion 40 Extension 10 Rotation Left 45 Rotation Right 45 Lateral Flexion Left 50 Lateral Flexion Right 50 ROM Limitations Pain Comments observable instability Hip Goniometric Range of Motion Hip Measured in Degrees Left Hip ROM WFL No Straight Leg Raise 30 Right Hip ROM WFL No Straight Leg Raise 40 Hip ROM Limitations Hip ROM Limitations Pain Comments pain both left and right with active SLR, muscle tightness with PSLR PT-OP-L Special Tests Start: 03/16/18 10:32 Freq: Status: Active Protocol: Document 03/16/18 10:33 SAK (Rec: 03/16/18 16:38 [facility] [id number]) Special Tests Lumbar Spine Special Tests Manual Traction Test Results relieving Straight Leg Raise Test Results positive for pain Stork Test Test Results negative mireille Compression Test Results increased pain PT-OP-M Strength Start: 03/16/18 10:32 Freq: Status: Active Protocol: Document 03/16/18 10:33 SAK (Rec: 03/16/18 16:38 [facility] [id number]) Trunk Strength Trunk Manual Muscle Testing Testing Position Supine Core Stabilization poor Hip Strength Hip Manual Muscle Testing Left Flexion (L2) 4+ Good+ Extension (S1) 3+ Fair+ Abduction 4- Good- External Rotation 4- Good- Internal Rotation 4+ Good+ Right Flexion (L2) 4+ Good+ Extension (S1) 4- Good- Abduction 4- Good- External Rotation 4 Good Internal Rotation 4+ Good+ Knee Strength Knee Manual Muscle Testing Left Flexion (S2) 4 Good Extension (L3) 4+ Good+ Right Flexion (S2) 4 Good Extension (L3) 4+ Good+ Ankle/Foot Strength Ankle and Foot Manual Muscle Testing Left Dorsiflexion (L4) 5 Normal Plantarflexion (S1) 5 Normal Right Dorsiflexion (L4) 5 Normal Plantarflexion (S1) 5 Normal Toe Strength Toe Manual Muscle Testing Left Great Toe Extension 4+ Good+ Right Great Toe Extension 4+ Good+ PT-OP-Q Treatments Start: 03/16/18 10:32 Freq: Status: Active Protocol: Document 08/24/18 15:16 SAK (Rec: 08/24/18 15:34 [facility] [id number]) Cardio Equipment Recumbent Stepper (Sci-Fit) Duration (Minutes) 10 Resistance 3 Other emphasis on neutral positioning Gym Equipment Therapeutic Ball LTR Ball Size/Color green-65 cm Body Position Hooklying Reps/Duration 10x Comments small amplitude TrA with leg lowering Ball Size/Color green- 65 cm Body Position Hooklying Reps/Duration 10x leg lift Ball Size/Color green-65 cm Body Position Sitting Reps/Duration 10x Pelvic circles Exercise Details Pelvic tilts, lateral flexion, and circles Ball Size/Color Green - 65 cm Body Position Sitting Reps/Duration 10x Therapeutic Exercises Prone Exercises opp UE/LE lift Reps/Minutes 6x Comments pain-free ROM child's pose Prone Exercise Name wide knees, knees together Reps/Minutes 3x Comments forward and to side Standing Exercises single leg stand for stabilization Reps/Minutes 5x ea Gait Training Gait Activity gait with mirror for visual feedback Treatment Focus symmetry, gluteal activation gait analysis on [facility] with video Description review video with patient Comments noted decreased trunk rotation , decreased stance time right, increased foot circumduction right Manual Therapy Treatment Manual Techniques sacral mob counternutation Body Position Prone Reps/Duration 5 min PT-OP-R Modalities Start: 03/16/18 10:32 Freq: Status: Active Protocol: Document 08/24/18 15:16 SAK (Rec: 08/24/18 16:25 SAK [id number]) Electric Stimulation Electric Stimulation Interferential Current (IFC) Body Location mireille lumbar paraspinals Duration (Minutes) 15 Target/Sweep Sweep High/Low High Patient Position Hooklying Combined With Heat/Cold Hot Pack Comments 90/90 PT-OP-S Aquatic Treatment Start: 06/19/18 13:46 Freq: Status: Active Protocol: Document 09/01/18 10:15 LJ (Rec: 09/01/18 14:53 LJ [email or web address]) Aquatics Treatment Pool Entry/Exit Pool Entry/Exit Method Stairs Assistance Independent Water Walking [place] July Water Level Chest Level fwd/bck/side/july Water Level Chest Level Level of Assistance Verbal Cues Lower Extremity Exercises flex/ex, ab,ad, circum Body Position Standing Water Level Chest Level Reps/Duration 10x Comments gentle w/cues for posture Lower Extremity Stretches piriformis Body Position Standing Reps/Duration back to wall DKTC, SKTC Body Position Standing Reps/Duration 2x40 sec hamstrings, hip add, ITB Water Level Waist Level Equipment Large Noodle Reps/Duration 2x40 sec Upper Extremity Exercises hor ab/ad, flex/ext Water Level Chest Level Reps/Duration squatting Comments DLS emphasis Spinal Exercises static stabilization Body Position Standing Water Level Chest Level Comments perturbations Lisman Activities Lisman Activities Bicycle Cross Country Running Hip Abduction/Adduction Other Activities Deep water DLS Equipment flotation belt Duration 30 Comments 6 rounds of 30:30 intervals: run x2, flex/ext x2, ab/adx2, Manual Techniques Bad Ragaz trunk rotation, lateral bending, nutation Aquatic Joint Mobilizations thoracic PA's; supine with yellow neck float, Aquatic Massage supine with yellow neck float, LE floats: to lumbosacral reg PT-OP-T Assessment and Plan Start: 03/16/18 10:32 Freq: Status: Active Protocol: Document 09/01/18 10:15 YASMINE (Rec: 09/01/18 14:53 LJ [id number]) Physical Therapy Assessment Impairments Impairments Activity Tolerance Functional Activities Pain Posture ROM Soft Tissue Mobility Strength Goals 4 Impairment ROM and strength Short Term Goal (STG) Patient will be compliant with a HEP for purposes of ROM, and strengthening focused on core stabilization 07/17/18: goal met STG Duration 6 wks Regional Education Coordinator Goal (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 Best tolerance for dynamic stabilization ex either supine or in aquatic PT , poor tolerance in standing, but overall improved awareness and ability. LTG Duration 3 months 3 Impairment Oswestry disability index score 26% Short Term Goal (STG) Decrease score to no greater than 13% 07/17/18 goal met STG Duration 6 wks Regional Education Coordinator Goal (LTG) Decrease Oswestry score to no greater than 10% LTG Duration 3 months 2 Impairment Activity tolerance Short Term Goal (STG) Patient will be able to go grocery shopping without an increase in pain 07/17/18: goal progress, able to do very short trip (10 min) STG Duration 6 wks Regional Education Coordinator Goal (LTG) Patient will be able to stand or walk for 1 hour without an increase in pain and resume prior activities without an increase in pain 07/17/18: goal progress, today for first time reported walk across facility at work without an increase in pain ( aprox 10 min walking) LTG Duration 3 months 1 Impairment pain Short Term Goal (STG) Decrease pain to no greater than 4/10 07/17/18: goal progress, pain variable. STG Duration 6 wks Regional Education Coordinator Goal (LTG) Decrease pain to no greater than 2/10 07/17/18: goal progress, occasionally down to level of 2 LTG Duration 3 months Assessment Summary Assessment Pt had no c/o pain during exercises or stretches. With Bad Ragaz pt experienced tenderness in sacral area with support under right side sacrum and left leg in slight extension. Physical Therapy Plan Frequency and Duration Frequency of Treatment 2x/Week Duration of Treatment 3 months Plan of Care Start Date 07/05/18 Plan of Care End Date 10/02/18 Therapeutic Interventions Therapeutic Interventions Aquatic Therapy Home Exercise Program Manual Therapy Patient/Caregiver Education Self-Care/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 Soft Tissue Mobilization Taping Therapeutic Activities Therapeutic Exercises Modalities Cold Pack/Ice Massage Electric Stimulation Hot Packs Traction- Mechanical Ultrasound Next Visit Focus/Plan Next Note Type Treatment Note Next Visit Plan Progress balance and stabilization with quick directional changes. Add trunk rotational exercises and posterior chain strengthening
--- NOTE | 2018-09-07 17:07 | PT.OTN ---
Current Diagnoses Other intervertebral disc displacement, lumbar region (09/07/18) Radiculopathy, lumbosacral region (09/07/18) Physical Therapy Treatment Note PT-OP-A Visit Information Start: 03/16/18 10:32 Freq: Status: Active Protocol: Document 09/07/18 16:57 SAK (Rec: 09/07/18 17:04 [facility] [id number]) Out-Patient Physical Therapy Visit Information Visit Information Visit Type Treatment Note Visit Start Time 15:30 Visit Stop Time 16:23 Total Visit Minutes 53 Visit Number 18 Number of CONSOLE ASSEMBLER Visits 0 PT-OP-B Current Condition Start: 03/16/18 10:32 Freq: Status: Active Protocol: Document 03/16/18 10:33 SAK (Rec: 03/16/18 10:40 SAK [id number]) Current Condition History of Current Condition Onset Date 2015 Current Complaints persistent, function-limiting LB with radicular symptoms into left LE History of Current Condition Accident 2015; fell in shower with resulting LBP. Poor response to PT at that time. Worst pain with standing, walking. Unable to go grocery shopping or do other activity on feet without increase in pain. [place] best a couple days ago on day of last steoid medication. Using heat, not ice. Activity level minimal. Prior Treatments and Tests Prior PT, had increasing left sided pain. Hadn't had imaging. MRI and x-ray; bulging disc L45. 2 injections, last one December 2017; somewhat helpful in decreasing numbness and tingling down left leg. Also taking oral steroids; just finished. Has had 2 chiropractort appointments; increase in right-sided symptoms. Future Testing and Treatments Planned No further physician appointments scheduled at this time. 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 Feels very tight and higher pain level even though more central. Sees doctor tomorrow and is considering asking for steroid medication as she tends to respond well. Not as much relief with aquatic therapy session last week as she did with prior aquatic treatment. PT-OP-F Manual Assessment Start: 03/16/18 10:32 Freq: Status: Active Protocol: Document 03/16/18 10:33 SAK (Rec: 03/16/18 16:38 SAK [id number]) Manual Assessments Soft Tissue Assessment Soft Tissue Mobility Assessment Tender to palpation left lumbar spine L3-S1 Other Manual Assessments Other Manual Assessments tender to palpation left lumbar region PT-OP-G Mobility & Gait Start: 03/16/18 10:32 Freq: Status: Active Protocol: Document 03/16/18 10:33 SAK (Rec: 03/16/18 16:38 [facility] [id number]) OP Mobility Evaluation Bed Mobility Rolling indep Supine to and from Sit indep Transfers Sit to Stand indep OP Gait Assessment Gait Gait Assistance Required: Independent Assistive Devices Assistive Device None Gait Deviations General Gait Pattern Antalgic Factors Limiting Gait Function Factors Limiting Gait Function Pain PT-OP-H Neuro Start: 03/16/18 10:32 Freq: Status: Active Protocol: Document 03/16/18 10:33 SAK (Rec: 03/16/18 16:38 [facility] [id number]) Sensation Evaluation Gross Sensation Gross Sensation WNL Comments Summary Comments denies n/t or weakness, denies drop foot or leg giving way PT-OP-J Posture/Palpation/Skin Start: 03/16/18 10:32 Freq: Status: Active Protocol: Document 03/16/18 10:33 SAK (Rec: 03/16/18 16:38 SAK [id number]) Posture Evaluation Position Standing T-Spine Posture Flattened L-Spine Posture Increased Lordosis Pelvis Posture (L) Iliac Crest Superior Hip Posture (R) Externally Rotated PT-OP-K Range of Motion Start: 03/16/18 10:32 Freq: Status: Active Protocol: Document 03/16/18 10:33 SAK (Rec: 03/16/18 16:38 SAK [id number]) Lumbar Spine Range of Motion Lumbar Spine Active Testing Position standing Flexion 40 Extension 10 Rotation Left 45 Rotation Right 45 Lateral Flexion Left 50 Lateral Flexion Right 50 ROM Limitations Pain Comments observable instability Hip Goniometric Range of Motion Hip Measured in Degrees Left Hip ROM WFL No Straight Leg Raise 30 Right Hip ROM WFL No Straight Leg Raise 40 Hip ROM Limitations Hip ROM Limitations Pain Comments pain both left and right with active SLR, muscle tightness with PSLR PT-OP-L Special Tests Start: 03/16/18 10:32 Freq: Status: Active Protocol: Document 03/16/18 10:33 [facility] (Rec: 03/16/18 16:38 [facility] [id number]) Special Tests Lumbar Spine Special Tests Manual Traction Test Results relieving Straight Leg Raise Test Results positive for pain Stork Test Test Results negative mireille Compression Test Results increased pain PT-OP-M Strength Start: 03/16/18 10:32 Freq: Status: Active Protocol: Document 03/16/18 10:33 [facility] (Rec: 03/16/18 16:38 [facility] [id number]) Trunk Strength Trunk Manual Muscle Testing Testing Position Supine Core Stabilization poor Hip Strength Hip Manual Muscle Testing Left Flexion (L2) 4+ Good+ Extension (S1) 3+ Fair+ Abduction 4- Good- External Rotation 4- Good- Internal Rotation 4+ Good+ Right Flexion (L2) 4+ Good+ Extension (S1) 4- Good- Abduction 4- Good- External Rotation 4 Good Internal Rotation 4+ Good+ Knee Strength Knee Manual Muscle Testing Left Flexion (S2) 4 Good Extension (L3) 4+ Good+ Right Flexion (S2) 4 Good Extension (L3) 4+ Good+ Ankle/Foot Strength Ankle and Foot Manual Muscle Testing Left Dorsiflexion (L4) 5 Normal Plantarflexion (S1) 5 Normal Right Dorsiflexion (L4) 5 Normal Plantarflexion (S1) 5 Normal Toe Strength Toe Manual Muscle Testing Left Great Toe Extension 4+ Good+ Right Great Toe Extension 4+ Good+ PT-OP-Q Treatments Start: 03/16/18 10:32 Freq: Status: Active Protocol: Document 09/07/18 16:57 [facility] (Rec: 09/07/18 17:07 [facility] [id number]) Therapeutic Exercises Supine Exercises TrA with pillow squeeze Reps/Minutes 10x Comments after manual treatment Manual Therapy Treatment Soft Tissue Mobilization l/s paraspinals Body Location mireille Mobilization Type Rolling Strumming Intensity/Depth Moderate Body Position Prone Joint Mobilizations sacral counternutation Body Position Prone Reps/Duration 10 min Manual Traction Lumbar Body Position Supine Reps/Duration 10 min PT-OP-R Modalities Start: 03/16/18 10:32 Freq: Status: Active Protocol: Document 09/07/18 16:57 SAK (Rec: 09/07/18 17:07 SAK [id number]) Electric Stimulation Electric Stimulation Interferential Current (IFC) Body Location mireille lumbar paraspinals Duration (Minutes) 18 Target/Sweep Sweep High/Low High Patient Position Hooklying Combined With Heat/Cold Cold Pack Comments 90/90 PT-OP-S Aquatic Treatment Start: 06/19/18 13:46 Freq: Status: Active Protocol: Document 09/01/18 10:15 LJ (Rec: 09/01/18 14:53 LJ [id number]) Aquatics Treatment Pool Entry/Exit Pool Entry/Exit Method Stairs Assistance Independent Water Walking [place] July Water Level Chest Level fwd/bck/side/july Water Level Chest Level Level of Assistance Verbal Cues Lower Extremity Exercises flex/ex, ab,ad, circum Body Position Standing Water Level Chest Level Reps/Duration 10x Comments gentle w/cues for posture Lower Extremity Stretches piriformis Body Position Standing Reps/Duration back to wall DKTC, SKTC Body Position Standing Reps/Duration 2x40 sec hamstrings, hip add, ITB Water Level Waist Level Equipment Large Noodle Reps/Duration 2x40 sec Upper Extremity Exercises hor ab/ad, flex/ext Water Level Chest Level Reps/Duration squatting Comments DLS emphasis Spinal Exercises static stabilization Body Position Standing Water Level Chest Level Comments perturbations [place] Activities [place] Activities Bicycle [place] Running Hip Abduction/Adduction Other Activities Deep water DLS Equipment flotation belt Duration 30 Comments 6 rounds of 30:30 intervals: run x2, flex/ext x2, ab/adx2, Manual Techniques [place] trunk rotation, lateral bending, nutation Aquatic Joint Mobilizations thoracic PA's; supine with yellow neck float, Aquatic Massage supine with yellow neck float, LE floats: to lumbosacral reg PT-OP-T Assessment and Plan Start: 03/16/18 10:32 Freq: Status: Active Protocol: Document 09/07/18 16:57 SAK (Rec: 09/07/18 17:04 SAK [id number]) Physical Therapy Assessment Rehab Potential Rehabilitation Potential Good Evaluation Complexity Number of Personal Factors/Comorbidities 1-2 Number of Body Systems Impaired 3 Clinical Presentation at Evaluation Evolving Impairments Impairments Activity Tolerance Functional Activities Pain Posture ROM Soft Tissue Mobility Strength Goals 4 Impairment ROM and strength Short Term Goal (STG) Patient will be compliant with a HEP for purposes of ROM, and strengthening focused on core stabilization 07/17/18: goal met STG Duration 6 wks Prison Goal (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 Best tolerance for dynamic stabilization ex either supine or in aquatic PT , poor tolerance in standing, but overall improved awareness and ability. 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 STG Duration 6 wks Prison Goal (LTG) Decrease pain to no greater than 2/10 07/17/18: goal progress, occasionally down to level of 2 LTG Duration 3 months Progress Towards Goals Progress Towards Goals Slow Progress - Other Assessment Summary Assessment Patient experienced some relief of pain during both manual traction as well as counternutation mobilization of sacrum. Trial ice instead of heat today as she states she has been living on her heating pad at home and agrees with PT that lower lumbar reg almost seems swollen. Good tolerance to ice with the e-stim. Physical Therapy Plan Frequency and Duration Frequency of Treatment 2x/Week Duration of Treatment 3 months Plan of Care Start Date 07/05/18 Plan of Care End Date 10/02/18 Therapeutic Interventions Therapeutic Interventions Aquatic Therapy Home Exercise Program Manual Therapy Patient/Caregiver Education Self-Care/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 Soft Tissue Mobilization Taping Therapeutic Activities Therapeutic Exercises Modalities Cold Pack/Ice Massage Electric Stimulation Hot Packs Traction- Mechanical Ultrasound Next Visit Focus/Plan Next Note Type Treatment Note Next Visit Plan Evaluate response to today's treatment with increased manual component as well as change from heat to ice. Discuss physician visit and any changes to treatment or recommendations for PT.
--- NOTE | 2018-09-11 16:25 | PT.OTN ---
Current Diagnoses Other intervertebral disc displacement, lumbar region (09/11/18) Radiculopathy, lumbosacral region (09/11/18) Physical Therapy Treatment Note PT-OP-A Visit Information Start: 03/16/18 10:32 Freq: Status: Active Protocol: Document 09/11/18 15:18 SAK (Rec: 09/11/18 16:11 SAK [id number]) Out-Patient Physical Therapy Visit Information Visit Information Visit Type Treatment Note Visit Start Time 15:15 Visit Stop Time 16:08 Total Visit Minutes 53 Visit Number 19 Number of [employer] Visits 0 Evaluation Information Evaluation Date 03/16/18 PT-OP-B Current Condition Start: 03/16/18 10:32 Freq: Status: Active Protocol: Document 03/16/18 10:33 SAK (Rec: 03/16/18 10:40 SAK [id number]) Current Condition History of Current Condition Onset Date 2015 Current Complaints persistent, function-limiting LB with radicular symptoms into left LE History of Current Condition Accident 2015; fell in shower with resulting LBP. Poor response to PT at that time. Worst pain with standing, walking. Unable to go grocery shopping or do other activity on feet without increase in pain. [place] best a couple days ago on day of last steoid medication. Using heat, not ice. Activity level minimal. Prior Treatments and Tests Prior PT, had increasing left sided pain. Hadn't had imaging. MRI and x-ray; bulging disc L45. 2 injections, last one December 2017; somewhat helpful in decreasing numbness and tingling down left leg. Also taking oral steroids; just finished. Has had 2 chiropractort appointments; increase in right-sided symptoms. Future Testing and Treatments Planned No further physician appointments scheduled at this time. 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 Pain decreased to 5/10. Took 1/2 mile walk, several rest breaks and was increased pain after. PT-OP-F Manual Assessment Start: 03/16/18 10:32 Freq: Status: Active Protocol: Document 03/16/18 10:33 SAK (Rec: 03/16/18 16:38 [facility] [id number]) Manual Assessments Soft Tissue Assessment Soft Tissue Mobility Assessment Tender to palpation left lumbar spine L3-S1 Other Manual Assessments Other Manual Assessments tender to palpation left lumbar region PT-OP-G Mobility & Gait Start: 03/16/18 10:32 Freq: Status: Active Protocol: Document 03/16/18 10:33 SAK (Rec: 03/16/18 16:38 [facility] [id number]) OP Mobility Evaluation Bed Mobility Rolling indep Supine to and from Sit indep Transfers Sit to Stand indep OP Gait Assessment Gait Gait Assistance Required: Independent Assistive Devices Assistive Device None Gait Deviations General Gait Pattern Antalgic Factors Limiting Gait Function Factors Limiting Gait Function Pain PT-OP-H Neuro Start: 03/16/18 10:32 Freq: Status: Active Protocol: Document 03/16/18 10:33 SAK (Rec: 03/16/18 16:38 [facility] [id number]) Sensation Evaluation Gross Sensation Gross Sensation WNL Comments Summary Comments denies n/t or weakness, denies drop foot or leg giving way PT-OP-J Posture/Palpation/Skin Start: 03/16/18 10:32 Freq: Status: Active Protocol: Document 03/16/18 10:33 SAK (Rec: 03/16/18 16:38 [facility] [id number]) Posture Evaluation Position Standing T-Spine Posture Flattened L-Spine Posture Increased Lordosis Pelvis Posture (L) Iliac Crest Superior Hip Posture (R) Externally Rotated PT-OP-K Range of Motion Start: 03/16/18 10:32 Freq: Status: Active Protocol: Document 03/16/18 10:33 SAK (Rec: 03/16/18 16:38 SAK [id number]) Lumbar Spine Range of Motion Lumbar Spine Active Testing Position standing Flexion 40 Extension 10 Rotation Left 45 Rotation Right 45 Lateral Flexion Left 50 Lateral Flexion Right 50 ROM Limitations Pain Comments observable instability Hip Goniometric Range of Motion Hip Measured in Degrees Left Hip ROM WFL No Straight Leg Raise 30 Right Hip ROM WFL No Straight Leg Raise 40 Hip ROM Limitations Hip ROM Limitations Pain Comments pain both left and right with active SLR, muscle tightness with PSLR PT-OP-L Special Tests Start: 03/16/18 10:32 Freq: Status: Active Protocol: Document 03/16/18 10:33 [facility] (Rec: 03/16/18 16:38 [facility] [id number]) Special Tests Lumbar Spine Special Tests Manual Traction Test Results relieving Straight Leg Raise Test Results positive for pain Stork Test Test Results negative mireille Compression Test Results increased pain PT-OP-M Strength Start: 03/16/18 10:32 Freq: Status: Active Protocol: Document 03/16/18 10:33 [facility] (Rec: 03/16/18 16:38 [facility] [id number]) Trunk Strength Trunk Manual Muscle Testing Testing Position Supine Core Stabilization poor Hip Strength Hip Manual Muscle Testing Left Flexion (L2) 4+ Good+ Extension (S1) 3+ Fair+ Abduction 4- Good- External Rotation 4- Good- Internal Rotation 4+ Good+ Right Flexion (L2) 4+ Good+ Extension (S1) 4- Good- Abduction 4- Good- External Rotation 4 Good Internal Rotation 4+ Good+ Knee Strength Knee Manual Muscle Testing Left Flexion (S2) 4 Good Extension (L3) 4+ Good+ Right Flexion (S2) 4 Good Extension (L3) 4+ Good+ Ankle/Foot Strength Ankle and Foot Manual Muscle Testing Left Dorsiflexion (L4) 5 Normal Plantarflexion (S1) 5 Normal Right Dorsiflexion (L4) 5 Normal Plantarflexion (S1) 5 Normal Toe Strength Toe Manual Muscle Testing Left Great Toe Extension 4+ Good+ Right Great Toe Extension 4+ Good+ PT-OP-Q Treatments Start: 03/16/18 10:32 Freq: Status: Active Protocol: Document 09/11/18 15:18 [facility] (Rec: 09/11/18 16:11 [facility] [id number]) Cardio Equipment Recumbent Stepper (Sci-Fit) Duration (Minutes) 10 Resistance 3 Other emphasis on neutral positioning Gym Equipment Shuttle Recovery Bilateral Squats Resistance 62 Shuttle Recovery Platform Stable Reps/Time 10x2 Therapeutic Exercises Supine Exercises TrA with pillow squeeze Reps/Minutes 10x Comments after manual treatment Prone Exercises cat/cow Reps/Minutes 10x child's pose Prone Exercise Name wide knees, knees together Reps/Minutes 3x Comments forward and to side Standing Exercises HS stretch Equipment Used stair Reps/Minutes 2x Comments neutral and with IR HC stretch Equipment Used BRIAN Reps/Minutes 2x Comments neutral and with IR Therapeutic Activity Therapeutic Activity sit to stand, car transfers Reps/Minutes 3 min Manual Therapy Treatment Soft Tissue Mobilization l/s paraspinals Body Location mireille Mobilization Type Rolling Strumming Intensity/Depth Moderate Body Position Prone Joint Mobilizations sacral counternutation Body Position Prone Reps/Duration 10 min PT-OP-R Modalities Start: 03/16/18 10:32 Freq: Status: Active Protocol: Document 09/11/18 15:18 SAK (Rec: 09/11/18 16:25 SAK [id number]) Ultrasound Therapy Treatment right lumbar paraspinals Treatment Duration (minutes) 8 Patient Position Prone Mode Setting Pulsed Duty Cycle 50 Intensity Setting (w/cm2) 1.4 Comments prone pillow PT-OP-S Aquatic Treatment Start: 06/19/18 13:46 Freq: Status: Active Protocol: Document 09/01/18 10:15 LJ (Rec: 09/01/18 14:53 LJ [id number]) Aquatics Treatment Pool Entry/Exit Pool Entry/Exit Method Stairs Assistance Independent Water Walking [place] July Water Level Chest Level fwd/bck/side/july Water Level Chest Level Level of Assistance Verbal Cues Lower Extremity Exercises flex/ex, ab,ad, circum Body Position Standing Water Level Chest Level Reps/Duration 10x Comments gentle w/cues for posture Lower Extremity Stretches piriformis Body Position Standing Reps/Duration back to wall DKTC, SKTC Body Position Standing Reps/Duration 2x40 sec hamstrings, hip add, ITB Water Level Waist Level Equipment Large Noodle Reps/Duration 2x40 sec Upper Extremity Exercises hor ab/ad, flex/ext Water Level Chest Level Reps/Duration squatting Comments DLS emphasis Spinal Exercises static stabilization Body Position Standing Water Level Chest Level Comments perturbations Turner Activities Turner Activities Bicycle Cross Country Running Hip Abduction/Adduction Other Activities Deep water DLS Equipment flotation belt Duration 30 Comments 6 rounds of 30:30 intervals: run x2, flex/ext x2, ab/adx2, Manual Techniques [place] trunk rotation, lateral bending, nutation Aquatic Joint Mobilizations thoracic PA's; supine with yellow neck float, Aquatic Massage supine with yellow neck float, LE floats: to lumbosacral reg PT-OP-T Assessment and Plan Start: 03/16/18 10:32 Freq: Status: Active Protocol: Document 09/11/18 15:18 [facility] (Rec: 09/11/18 16:11 [facility] [id number]) Physical Therapy Assessment Goals 4 Impairment ROM and strength Short Term Goal (STG) Patient will be compliant with a HEP for purposes of ROM, and strengthening focused on core stabilization 07/17/18: goal met STG Duration 6 wks Custodial Goal (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 Best tolerance for dynamic stabilization ex either supine or in aquatic PT , poor tolerance in standing, but overall improved awareness and ability. LTG Duration 3 months 3 Impairment Oswestry disability index score 26% Short Term Goal (STG) Decrease score to no greater than 13% 07/17/18 goal met STG Duration 6 wks Custodial Goal (LTG) Decrease Oswestry score to no greater than 10% LTG Duration 3 months 2 Impairment Activity tolerance Short Term Goal (STG) Patient will be able to go grocery shopping without an increase in pain 07/17/18: goal progress, able to do very short trip (10 min) STG Duration 6 wks Custodial Goal (LTG) Patient will be able to stand or walk for 1 hour without an increase in pain and resume prior activities without an increase in pain 07/17/18: goal progress, today for first time reported walk across facility at work without an increase in pain ( aprox 10 min walking) LTG Duration 3 months 1 Impairment pain Short Term Goal (STG) Decrease pain to no greater than 4/10 07/17/18: goal progress, pain variable. STG Duration 6 wks Md Psychiatry Goal (LTG) Decrease pain to no greater than 2/10 07/17/18: goal progress, occasionally down to level of 2 LTG Duration 3 months Progress Towards Goals Progress Towards Goals Slow Progress - Other Assessment Summary Assessment pain relief minimal with treatment today. Has just started new medications, is hopeful to decrease inflammation and pain and be able to tolerate more activity . Demonstrated good understanding of car transfers and squats/sit to stand. Physical Therapy Plan Frequency and Duration Frequency of Treatment 2x/Week Duration of Treatment 3 months Plan of Care Start Date 07/05/18 Plan of Care End Date 10/02/18 Therapeutic Interventions Therapeutic Interventions Aquatic Therapy Home Exercise Program Manual Therapy Patient/Caregiver Education Self-Care/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 Soft Tissue Mobilization Taping Therapeutic Activities Therapeutic Exercises Modalities Cold Pack/Ice Massage Electric Stimulation Hot Packs Traction- Mechanical Ultrasound Next Visit Focus/Plan Next Note Type Treatment Note Next Visit Plan Progress ther ex as tolerated for core stab, strengthening, and flexibility.
--- NOTE | 2018-09-14 15:15 | PT.OTN ---
Current Diagnoses Other intervertebral disc displacement, lumbar region (09/14/18) Radiculopathy, lumbosacral region (09/14/18) Physical Therapy Treatment Note PT-OP-A Visit Information Start: 03/16/18 10:32 Freq: Status: Active Protocol: Document 09/11/18 15:18 SAK (Rec: 09/11/18 16:11 SAK [id number]) Out-Patient Physical Therapy Visit Information Visit Information Visit Type Treatment Note Visit Start Time 15:15 Visit Stop Time 16:08 Total Visit Minutes 53 Visit Number 19 Number of UNBUNDLER Visits 0 Evaluation Information Evaluation Date 03/16/18 PT-OP-B Current Condition Start: 03/16/18 10:32 Freq: Status: Active Protocol: Document 03/16/18 10:33 SAK (Rec: 03/16/18 10:40 SAK [id number]) Current Condition History of Current Condition Onset Date 2015 Current Complaints persistent, function-limiting LB with radicular symptoms into left LE History of Current Condition Accident 2015; fell in shower with resulting LBP. Poor response to PT at that time. Worst pain with standing, walking. Unable to go grocery shopping or do other activity on feet without increase in pain. [place] best a couple days ago on day of last steoid medication. Using heat, not ice. Activity level minimal. Prior Treatments and Tests Prior PT, had increasing left sided pain. Hadn't had imaging. MRI and x-ray; bulging disc L45. 2 injections, last one December 2017; somewhat helpful in decreasing numbness and tingling down left leg. Also taking oral steroids; just finished. Has had 2 chiropractort appointments; increase in right-sided symptoms. Future Testing and Treatments Planned No further physician appointments scheduled at this time. 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 Overall walking a bit further and pain staying centralized but more intense. PT-OP-F Manual Assessment Start: 03/16/18 10:32 Freq: Status: Active Protocol: Document 03/16/18 10:33 SAK (Rec: 03/16/18 16:38 [facility] [id number]) Manual Assessments Soft Tissue Assessment Soft Tissue Mobility Assessment Tender to palpation left lumbar spine L3-S1 Other Manual Assessments Other Manual Assessments tender to palpation left lumbar region PT-OP-G Mobility & Gait Start: 03/16/18 10:32 Freq: Status: Active Protocol: Document 03/16/18 10:33 SAK (Rec: 03/16/18 16:38 [facility] [id number]) OP Mobility Evaluation Bed Mobility Rolling indep Supine to and from Sit indep Transfers Sit to Stand indep OP Gait Assessment Gait Gait Assistance Required: Independent Assistive Devices Assistive Device None Gait Deviations General Gait Pattern Antalgic Factors Limiting Gait Function Factors Limiting Gait Function Pain PT-OP-H Neuro Start: 03/16/18 10:32 Freq: Status: Active Protocol: Document 03/16/18 10:33 SAK (Rec: 03/16/18 16:38 [facility] [id number]) Sensation Evaluation Gross Sensation Gross Sensation WNL Comments Summary Comments denies n/t or weakness, denies drop foot or leg giving way PT-OP-J Posture/Palpation/Skin Start: 03/16/18 10:32 Freq: Status: Active Protocol: Document 03/16/18 10:33 SAK (Rec: 03/16/18 16:38 [facility] [id number]) Posture Evaluation Position Standing T-Spine Posture Flattened L-Spine Posture Increased Lordosis Pelvis Posture (L) Iliac Crest Superior Hip Posture (R) Externally Rotated PT-OP-K Range of Motion Start: 03/16/18 10:32 Freq: Status: Active Protocol: Document 03/16/18 10:33 SAK (Rec: 03/16/18 16:38 [facility] [id number]) Lumbar Spine Range of Motion Lumbar Spine Active Testing Position standing Flexion 40 Extension 10 Rotation Left 45 Rotation Right 45 Lateral Flexion Left 50 Lateral Flexion Right 50 ROM Limitations Pain Comments observable instability Hip Goniometric Range of Motion Hip Measured in Degrees Left Hip ROM WFL No Straight Leg Raise 30 Right Hip ROM WFL No Straight Leg Raise 40 Hip ROM Limitations Hip ROM Limitations Pain Comments pain both left and right with active SLR, muscle tightness with PSLR PT-OP-L Special Tests Start: 03/16/18 10:32 Freq: Status: Active Protocol: Document 03/16/18 10:33 SAK (Rec: 03/16/18 16:38 SAK [id number]) Special Tests Lumbar Spine Special Tests Manual Traction Test Results relieving Straight Leg Raise Test Results positive for pain Stork Test Test Results negative mireille Compression Test Results increased pain PT-OP-M Strength Start: 03/16/18 10:32 Freq: Status: Active Protocol: Document 03/16/18 10:33 [facility] (Rec: 03/16/18 16:38 [facility] [id number]) Trunk Strength Trunk Manual Muscle Testing Testing Position Supine Core Stabilization poor Hip Strength Hip Manual Muscle Testing Left Flexion (L2) 4+ Good+ Extension (S1) 3+ Fair+ Abduction 4- Good- External Rotation 4- Good- Internal Rotation 4+ Good+ Right Flexion (L2) 4+ Good+ Extension (S1) 4- Good- Abduction 4- Good- External Rotation 4 Good Internal Rotation 4+ Good+ Knee Strength Knee Manual Muscle Testing Left Flexion (S2) 4 Good Extension (L3) 4+ Good+ Right Flexion (S2) 4 Good Extension (L3) 4+ Good+ Ankle/Foot Strength Ankle and Foot Manual Muscle Testing Left Dorsiflexion (L4) 5 Normal Plantarflexion (S1) 5 Normal Right Dorsiflexion (L4) 5 Normal Plantarflexion (S1) 5 Normal Toe Strength Toe Manual Muscle Testing Left Great Toe Extension 4+ Good+ Right Great Toe Extension 4+ Good+ PT-OP-Q Treatments Start: 03/16/18 10:32 Freq: Status: Active Protocol: Document 09/14/18 15:18 SAK (Rec: 09/14/18 16:17 SAK [id number]) Therapeutic Exercises Supine Exercises TrA with march Reps/Minutes 10x TrA with bent LE lower Reps/Minutes 10x 90:90 push/pull isometric Reps/Minutes 5x TrA with pillow squeeze Reps/Minutes 10x Comments after manual treatment Bridging Supine Exercise Name segmental bridge Comments painfree ROM Prone Exercises child's pose Prone Exercise Name wide knees, knees together Reps/Minutes 3x Comments forward and to side Manual Therapy Treatment Soft Tissue Mobilization l/s paraspinals Body Location mireille Mobilization Type Rolling Strumming Intensity/Depth Moderate Body Position Prone Joint Mobilizations sacral counternutation Body Position Prone Reps/Duration 10 min Self-Care/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 Treatment Education Patient Education Body Mechanics Home Exercise Program Pain Management Posture Other Education Discussed HEP, current activity level, need for doing aquatic exercises indep. Trial Back brace, SI belt, given information for obtaining 1/2 roll for use at home, issued written handout for desk stretches, trial use of wedge and other positioning to facilitate counternutation of sacrum PT-OP-R Modalities Start: 03/16/18 10:32 Freq: Status: Active Protocol: Document 09/14/18 15:18 SAK (Rec: 09/14/18 16:17 SAK [id number]) Electric Stimulation Electric Stimulation Interferential Current (IFC) Body Location mireille lumbar paraspinals Duration (Minutes) 18 Target/Sweep Sweep High/Low High Patient Position Hooklying Combined With Heat/Cold Cold Pack Comments 90/90 PT-OP-S Aquatic Treatment Start: 06/19/18 13:46 Freq: Status: Active Protocol: Document 09/01/18 10:15 LJ (Rec: 09/01/18 14:53 LJ [id number]) Aquatics Treatment Pool Entry/Exit Pool Entry/Exit Method Stairs Assistance Independent Water Walking [place] July Water Level Chest Level fwd/bck/side/july Water Level Chest Level Level of Assistance Verbal Cues Lower Extremity Exercises flex/ex, ab,ad, circum Body Position Standing Water Level Chest Level Reps/Duration 10x Comments gentle w/cues for posture Lower Extremity Stretches piriformis Body Position Standing Reps/Duration back to wall DKTC, SKTC Body Position Standing Reps/Duration 2x40 sec hamstrings, hip add, ITB Water Level Waist Level Equipment Large Noodle Reps/Duration 2x40 sec Upper Extremity Exercises hor ab/ad, flex/ext Water Level Chest Level Reps/Duration squatting Comments DLS emphasis Spinal Exercises static stabilization Body Position Standing Water Level Chest Level Comments perturbations [place] Activities [place] Activities Bicycle [place] Running Hip Abduction/Adduction Other Activities Deep water DLS Equipment flotation belt Duration 30 Comments 6 rounds of 30:30 intervals: run x2, flex/ext x2, ab/adx2, Manual Techniques [place] trunk rotation, lateral bending, nutation Aquatic Joint Mobilizations thoracic PA's; supine with yellow neck float, Aquatic Massage supine with yellow neck float, LE floats: to lumbosacral reg PT-OP-T Assessment and Plan Start: 03/16/18 10:32 Freq: Status: Active Protocol: Document 09/14/18 15:18 SAK (Rec: 09/14/18 16:17 SAK [id number]) Physical Therapy Assessment Goals 4 Impairment ROM and strength Short Term Goal (STG) Patient will be compliant with a HEP for purposes of ROM, and strengthening focused on core stabilization 07/17/18: goal met STG Duration 6 wks Shelter Goal (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 Best tolerance for dynamic stabilization ex either supine or in aquatic PT , poor tolerance in standing, but overall improved awareness and ability. LTG Duration 3 months 3 Impairment Oswestry disability index score 26% Short Term Goal (STG) Decrease score to no greater than 13% 07/17/18 goal met STG Duration 6 wks Shelter Goal (LTG) Decrease Oswestry score to no greater than 10% LTG Duration 3 months 2 Impairment Activity tolerance Short Term Goal (STG) Patient will be able to go grocery shopping without an increase in pain 07/17/18: goal progress, able to do very short trip (10 min) STG Duration 6 wks Automotive Sales Executive Goal (LTG) Patient will be able to stand or walk for 1 hour without an increase in pain and resume prior activities without an increase in pain 07/17/18: goal progress, today for first time reported walk across facility at work without an increase in pain ( aprox 10 min walking) LTG Duration 3 months 1 Impairment pain Short Term Goal (STG) Decrease pain to no greater than 4/10 07/17/18: goal progress, pain variable. STG Duration 6 wks Shelter Goal (LTG) Decrease pain to no greater than 2/10 07/17/18: goal progress, occasionally down to level of 2 LTG Duration 3 months Assessment Summary Assessment Initially felt SI belt felt good, but on further trial states it increased her symptoms. Demonstrated good understanding of need to do aquatic ex on own, and also good understanding of gentle self-mob or positioning for increased counternutation as discussed and tried today. Plans to order 1/2 roll to assist with HEP. Physical Therapy Plan Frequency and Duration Frequency of Treatment 2x/Week Duration of Treatment 3 months Plan of Care Start Date 07/05/18 Plan of Care End Date 10/02/18 Therapeutic Interventions Therapeutic Interventions Aquatic Therapy Home Exercise Program Manual Therapy Patient/Caregiver Education Self-Care/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 Soft Tissue Mobilization Taping Therapeutic Activities Therapeutic Exercises Modalities Cold Pack/Ice Massage Electric Stimulation Hot Packs Traction- Mechanical Ultrasound Next Visit Focus/Plan Next Note Type Treatment Note Next Visit Plan Discuss response to last session and POC moving forward toward better self care.
--- NOTE | 2018-09-22 15:11 | PT.OTN ---
Current Diagnoses Other intervertebral disc displacement, lumbar region (09/22/18) Radiculopathy, lumbosacral region (09/22/18) Physical Therapy Treatment Note PT-OP-A Visit Information Start: 03/16/18 10:32 Freq: Status: Active Protocol: Document 09/22/18 15:03 [facility] (Rec: 09/22/18 15:11 [facility] [id number]) Out-Patient Physical Therapy Visit Information Visit Information Visit Type Aquatic Treatment Note Visit Start Time 11:00 Visit Stop Time 11:45 Total Visit Minutes 45 Visit Number 20 Number of PHOTOGRAPHIC EQUIPMENT INSPECTOR Visits 0 Evaluation Information Evaluation Date 03/16/18 PT-OP-B Current Condition Start: 03/16/18 10:32 Freq: Status: Active Protocol: Document 03/16/18 10:33 [facility] (Rec: 03/16/18 10:40 [facility] [id number]) Current Condition History of Current Condition Onset Date 2015 Current Complaints persistent, function-limiting LB with radicular symptoms into left LE History of Current Condition Accident 2015; fell in shower with resulting LBP. Poor response to PT at that time. Worst pain with standing, walking. Unable to go grocery shopping or do other activity on feet without increase in pain. [place] best a couple days ago on day of last steoid medication. Using heat, not ice. Activity level minimal. Prior Treatments and Tests Prior PT, had increasing left sided pain. Hadn't had imaging. MRI and x-ray; bulging disc L45. 2 injections, last one December 2017; somewhat helpful in decreasing numbness and tingling down left leg. Also taking oral steroids; just finished. Has had 2 chiropractort appointments; increase in right-sided symptoms. Future Testing and Treatments Planned No further physician appointments scheduled at this time. 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 PT-OP-F Manual Assessment Start: 03/16/18 10:32 Freq: Status: Active Protocol: Document 03/16/18 10:33 SAK (Rec: 03/16/18 16:38 SAK [id number]) Manual Assessments Soft Tissue Assessment Soft Tissue Mobility Assessment Tender to palpation left lumbar spine L3-S1 Other Manual Assessments Other Manual Assessments tender to palpation left lumbar region PT-OP-G Mobility & Gait Start: 03/16/18 10:32 Freq: Status: Active Protocol: Document 03/16/18 10:33 SAK (Rec: 03/16/18 16:38 [facility] [id number]) OP Mobility Evaluation Bed Mobility Rolling indep Supine to and from Sit indep Transfers Sit to Stand indep OP Gait Assessment Gait Gait Assistance Required: Independent Assistive Devices Assistive Device None Gait Deviations General Gait Pattern Antalgic Factors Limiting Gait Function Factors Limiting Gait Function Pain PT-OP-H Neuro Start: 03/16/18 10:32 Freq: Status: Active Protocol: Document 03/16/18 10:33 SAK (Rec: 03/16/18 16:38 [facility] [id number]) Sensation Evaluation Gross Sensation Gross Sensation WNL Comments Summary Comments denies n/t or weakness, denies drop foot or leg giving way PT-OP-J Posture/Palpation/Skin Start: 03/16/18 10:32 Freq: Status: Active Protocol: Document 03/16/18 10:33 SAK (Rec: 03/16/18 16:38 [facility] [id number]) Posture Evaluation Position Standing T-Spine Posture Flattened L-Spine Posture Increased Lordosis Pelvis Posture (L) Iliac Crest Superior Hip Posture (R) Externally Rotated PT-OP-K Range of Motion Start: 03/16/18 10:32 Freq: Status: Active Protocol: Document 03/16/18 10:33 SAK (Rec: 03/16/18 16:38 SAK [id number]) Lumbar Spine Range of Motion Lumbar Spine Active Testing Position standing Flexion 40 Extension 10 Rotation Left 45 Rotation Right 45 Lateral Flexion Left 50 Lateral Flexion Right 50 ROM Limitations Pain Comments observable instability Hip Goniometric Range of Motion Hip Measured in Degrees Left Hip ROM WFL No Straight Leg Raise 30 Right Hip ROM WFL No Straight Leg Raise 40 Hip ROM Limitations Hip ROM Limitations Pain Comments pain both left and right with active SLR, muscle tightness with PSLR PT-OP-L Special Tests Start: 03/16/18 10:32 Freq: Status: Active Protocol: Document 03/16/18 10:33 [facility] (Rec: 03/16/18 16:38 [facility] [id number]) Special Tests Lumbar Spine Special Tests Manual Traction Test Results relieving Straight Leg Raise Test Results positive for pain Stork Test Test Results negative mireille Compression Test Results increased pain PT-OP-M Strength Start: 03/16/18 10:32 Freq: Status: Active Protocol: Document 03/16/18 10:33 [facility] (Rec: 03/16/18 16:38 [facility] [id number]) Trunk Strength Trunk Manual Muscle Testing Testing Position Supine Core Stabilization poor Hip Strength Hip Manual Muscle Testing Left Flexion (L2) 4+ Good+ Extension (S1) 3+ Fair+ Abduction 4- Good- External Rotation 4- Good- Internal Rotation 4+ Good+ Right Flexion (L2) 4+ Good+ Extension (S1) 4- Good- Abduction 4- Good- External Rotation 4 Good Internal Rotation 4+ Good+ Knee Strength Knee Manual Muscle Testing Left Flexion (S2) 4 Good Extension (L3) 4+ Good+ Right Flexion (S2) 4 Good Extension (L3) 4+ Good+ Ankle/Foot Strength Ankle and Foot Manual Muscle Testing Left Dorsiflexion (L4) 5 Normal Plantarflexion (S1) 5 Normal Right Dorsiflexion (L4) 5 Normal Plantarflexion (S1) 5 Normal Toe Strength Toe Manual Muscle Testing Left Great Toe Extension 4+ Good+ Right Great Toe Extension 4+ Good+ PT-OP-Q Treatments Start: 03/16/18 10:32 Freq: Status: Active Protocol: Document 09/14/18 15:18 [facility] (Rec: 09/14/18 16:17 [facility] [id number]) Therapeutic Exercises Supine Exercises TrA with march Reps/Minutes 10x TrA with bent LE lower Reps/Minutes 10x 90:90 push/pull isometric Reps/Minutes 5x TrA with pillow squeeze Reps/Minutes 10x Comments after manual treatment Bridging Supine Exercise Name segmental bridge Comments painfree ROM Prone Exercises child's pose Prone Exercise Name wide knees, knees together Reps/Minutes 3x Comments forward and to side Manual Therapy Treatment Soft Tissue Mobilization l/s paraspinals Body Location mireille Mobilization Type Rolling Strumming Intensity/Depth Moderate Body Position Prone Joint Mobilizations sacral counternutation Body Position Prone Reps/Duration 10 min Self-Care/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 Treatment Education Patient Education Body Mechanics Home Exercise Program Pain Management Posture Other Education Discussed HEP, current activity level, need for doing aquatic exercises indep. Trial Back brace, SI belt, given information for obtaining 1/2 roll for use at home, issued written handout for desk stretches, trial use of wedge and other positioning to facilitate counternutation of sacrum PT-OP-R Modalities Start: 03/16/18 10:32 Freq: Status: Active Protocol: Document 09/14/18 15:18 [facility] (Rec: 09/14/18 16:17 [facility] [id number]) Electric Stimulation Electric Stimulation Interferential Current (IFC) Body Location mireille lumbar paraspinals Duration (Minutes) 18 Target/Sweep Sweep High/Low High Patient Position Hooklying Combined With Heat/Cold Cold Pack Comments 90/90 PT-OP-S Aquatic Treatment Start: 06/19/18 13:46 Freq: Status: Active Protocol: Document 09/22/18 15:03 [facility] (Rec: 09/22/18 15:11 [facility] [id number]) Aquatics Treatment Pool Entry/Exit Pool Entry/Exit Method Stairs Assistance Independent Water Walking [place] July Water Level Chest Level fwd/bck/side/july Water Level Chest Level Level of Assistance Verbal Cues Lower Extremity Exercises flex/ex, ab,ad, circum Body Position Standing Water Level Chest Level Reps/Duration 10x Comments gentle w/cues for posture Lower Extremity Stretches piriformis Details pigeon pose Water Level Neck Level Reps/Duration 2x Comments at wall DKTC, SKTC Body Position Standing Water Level [place] Reps/Duration 2x30 sec hamstrings, hip add, ITB Water Level Waist Level Equipment Large Noodle Reps/Duration 2x40 sec Upper Extremity Exercises UE pull downs Equipment med barbells Reps/Duration 10x hor ab/ad, flex/ext Water Level Chest Level Reps/Duration squatting Comments DLS emphasis Spinal Exercises deep water hang Reps/Duration 1'x2 [place] Activities [place] Activities Bicycle [place] Running Hip Abduction/Adduction Other Activities Deep water DLS Equipment flotation belt Duration 25 Comments flotation belt on backward PT-OP-T Assessment and Plan Start: 03/16/18 10:32 Freq: Status: Active Protocol: Document 09/22/18 15:03 [facility] (Rec: 09/22/18 15:06 [facility] [id number]) Physical Therapy Assessment Goals 4 Impairment ROM and strength Short Term Goal (STG) Patient will be compliant with a HEP for purposes of ROM, and strengthening focused on core stabilization 07/17/18: goal met STG Duration 6 wks Supply Chain Manager Goal (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 Best tolerance for dynamic stabilization ex either supine or in aquatic PT , poor tolerance in standing, but overall improved awareness and ability. LTG Duration 3 months 3 Impairment Oswestry disability index score 26% Short Term Goal (STG) Decrease score to no greater than 13% 07/17/18 goal met STG Duration 6 wks Halfway Goal (LTG) Decrease Oswestry score to no greater than 10% LTG Duration 3 months 2 Impairment Activity tolerance Short Term Goal (STG) Patient will be able to go grocery shopping without an increase in pain 07/17/18: goal progress, able to do very short trip (10 min) STG Duration 6 wks Supply Chain Manager Goal (LTG) Patient will be able to stand or walk for 1 hour without an increase in pain and resume prior activities without an increase in pain 07/17/18: goal progress, today for first time reported walk across facility at work without an increase in pain ( aprox 10 min walking) LTG Duration 3 months 1 Impairment pain Short Term Goal (STG) Decrease pain to no greater than 4/10 07/17/18: goal progress, pain variable. STG Duration 6 wks Halfway Goal (LTG) Decrease pain to no greater than 2/10 07/17/18: goal progress, occasionally down to level of 2 LTG Duration 3 months Assessment Summary Assessment good tolerance for aquatic therapy exercises, improved ability to perform deep water stabiization exercises. Physical Therapy Plan Frequency and Duration Frequency of Treatment 2x/Week Duration of Treatment 3 months Plan of Care Start Date 07/05/18 Plan of Care End Date 10/02/18 Therapeutic Interventions Therapeutic Interventions Aquatic Therapy Home Exercise Program Manual Therapy Patient/Caregiver Education Self-Care/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 Soft Tissue Mobilization Taping Therapeutic Activities Therapeutic Exercises Modalities Cold Pack/Ice Massage Electric Stimulation Hot Packs Traction- Mechanical Ultrasound Next Visit Focus/Plan Next Note Type Treatment Note Next Visit Plan Continue PT for strengthening, spinal stabilization ex, modalities and manual therapy as needed.
--- NOTE | 2018-11-27 10:45 | PT.OPDS ---
Current Diagnoses Other intervertebral disc displacement, lumbar region (09/22/18) Radiculopathy, lumbosacral region (09/22/18) Provider Visit Care Team Role Provider Type MORGAN Zavala Primary Care Provider Advanced [employer] Farm[employer] Specialty: Family Practice Address: [address] [place] [address], [facility] [place], [address] Email: [email or web address] Angel Morgan DO Attending Provider Physician Specialty: Physiatry Pain Management Address: [address] [place] [address], [facility] Email: Visit Number Visit Number 20 Discharge Summary PT-OP-B Current Condition Start: 03/16/18 10:32 Freq: Status: Active Protocol: Document 03/16/18 10:33 SAK (Rec: 03/16/18 10:40 SAK [id number]) Current Condition History of Current Condition Onset Date 2015 Current Complaints persistent, function-limiting LB with radicular symptoms into left LE History of Current Condition Accident 2016; fell in shower with resulting LBP. Poor response to PT at that time. Worst pain with standing, walking. Unable to go grocery shopping or do other activity on feet without increase in pain. [place] best a couple days ago on day of last steoid medication. Using heat, not ice. Activity level minimal. Prior Treatments and Tests Prior PT, had increasing left sided pain. Hadn't had imaging. MRI and x-ray; bulging disc L45. 2 injections, last one December 2017; somewhat helpful in decreasing numbness and tingling down left leg. Also taking oral steroids; just finished. Has had 2 chiropractort appointments; increase in right-sided symptoms. Future Testing and Treatments Planned No further physician appointments scheduled at this time. 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, but continues to work [employer] Functional Limitations- Recreation/ unable to tolerate Hobbies PT-OP-C Subjective Start: 03/16/18 10:32 Freq: Status: Active Protocol: Document 09/22/18 15:03 SAK (Rec: 09/22/18 15:06 SAK [id number]) OP-PT Subjective Patient Comments Patient Comments Reports now feeling that steroids and anti-inflammatory have helped some with decrease in pain and increased activity tolerance, trying to take short walks on during her work break and has been tolerating fairly well. PT-OP-F Manual Assessment Start: 03/16/18 10:32 Freq: Status: Active Protocol: Document 03/16/18 10:33 SAK (Rec: 03/16/18 16:38 SAK [id number]) Manual Assessments Soft Tissue Assessment Soft Tissue Mobility Assessment Tender to palpation left lumbar spine L3-S1 Other Manual Assessments Other Manual Assessments tender to palpation left lumbar region PT-OP-G Mobility & Gait Start: 03/16/18 10:32 Freq: Status: Active Protocol: Document 03/16/18 10:33 SAK (Rec: 03/16/18 16:38 SAK [id number]) OP Mobility Evaluation Bed Mobility Rolling indep Supine to and from Sit indep Transfers Sit to Stand indep OP Gait Assessment Gait Gait Assistance Required: Independent Assistive Devices Assistive Device None Gait Deviations General Gait Pattern Antalgic Factors Limiting Gait Function Factors Limiting Gait Function Pain PT-OP-H Neuro Start: 03/16/18 10:32 Freq: Status: Active Protocol: Document 03/16/18 10:33 SAK (Rec: 03/16/18 16:38 SAK [id number]) Sensation Evaluation Gross Sensation Gross Sensation WNL Comments Summary Comments denies n/t or weakness, denies drop foot or leg giving way PT-OP-J Posture/Palpation/Skin Start: 03/16/18 10:32 Freq: Status: Active Protocol: Document 03/16/18 10:33 SAK (Rec: 03/16/18 16:38 SAK [id number]) Posture Evaluation Position Standing T-Spine Posture Flattened L-Spine Posture Increased Lordosis Pelvis Posture (L) Iliac Crest Superior Hip Posture (R) Externally Rotated PT-OP-K Range of Motion Start: 03/16/18 10:32 Freq: Status: Active Protocol: Document 03/16/18 10:33 SAK (Rec: 03/16/18 16:38 SAK [id number]) Lumbar Spine Range of Motion Lumbar Spine Active Testing Position standing Flexion 40 Extension 10 Rotation Left 45 Rotation Right 45 Lateral Flexion Left 50 Lateral Flexion Right 50 ROM Limitations Pain Comments observable instability Hip Goniometric Range of Motion Hip Left Hip ROM WFL No Straight Leg Raise 30 Right Hip ROM WFL No Straight Leg Raise 40 Hip ROM Limitations Hip ROM Limitations Pain Comments pain both left and right with active SLR, muscle tightness with PSLR PT-OP-L Special Tests Start: 03/16/18 10:32 Freq: Status: Active Protocol: Document 03/16/18 10:33 SAK (Rec: 03/16/18 16:38 [facility] [id number]) Special Tests Lumbar Spine Special Tests Manual Traction Test Results relieving Straight Leg Raise Test Results positive for pain Stork Test Test Results negative mireille Compression Test Results increased pain PT-OP-M Strength Start: 03/16/18 10:32 Freq: Status: Active Protocol: Document 03/16/18 10:33 LEE (Rec: 03/16/18 16:38 [facility] [id number]) Trunk Strength Trunk Manual Muscle Testing Testing Position Supine Core Stabilization poor Hip Strength Hip Manual Muscle Testing Left Flexion (L2) 4+ Good+ Extension (S1) 3+ Fair+ Abduction 4- Good- External Rotation 4- Good- Internal Rotation 4+ Good+ Right Flexion (L2) 4+ Good+ Extension (S1) 4- Good- Abduction 4- Good- External Rotation 4 Good Internal Rotation 4+ Good+ Knee Strength Knee Manual Muscle Testing Left Flexion (S2) 4 Good Extension (L3) 4+ Good+ Right Flexion (S2) 4 Good Extension (L3) 4+ Good+ Ankle/Foot Strength Ankle and Foot Manual Muscle Testing Left Dorsiflexion (L4) 5 Normal Plantarflexion (S1) 5 Normal Right Dorsiflexion (L4) 5 Normal Plantarflexion (S1) 5 Normal Toe Strength Toe Manual Muscle Testing Left Great Toe Extension 4+ Good+ Right Great Toe Extension 4+ Good+ PT-OP-T Assessment and Plan Start: 03/16/18 10:32 Freq: Status: Active Protocol: Document 11/27/18 10:44 LEE (Rec: 11/27/18 10:45 [facility] [id number]) Physical Therapy Plan Discharge Physical Therapy Discharge Reasons Goals Met Discharge Comments patient doing well, requests discharge from PT.
== END 2018-11-28 13:09 | disposition home or self-care (01) ==
LOC: PHYS 11:00
PROVIDERS: PCP Internal Medicine; Visit Provider Physical Medicine & Rehabilitation
DX: M54.17 Radiculopathy, lumbosacral region (principal); M51.26 Other intervertebral disc displacement, lumbar region
CPT/HCPCS: 97012; 97014; 97035; 97110; 97113; 97140; 97162; 97530; 97535; G0283

== ENCOUNTER → 2019-02-13 09:56 | Outpatient (CLI) | payer OTHER, SELFPAY | PROVIDERS: PCP Internal Medicine | DX: Z23 Encounter for immunization (principal) | CPT/HCPCS: 90471; 90686 ==

== ENCOUNTER → 2019-03-22 07:06 | Outpatient (CLI) | payer OTHER, SELFPAY ==
[2019-03-22 08:37] LABS: Add Manual Diff / Slide Review NO; Basophils Absolute Auto 0 /uL (0-100); Basophils Percent Auto 0.5 % (0-2); Eosinophils Absolute Auto 400 /uL (0-450); Eosinophils Percent Auto 4.8 % (2-4); Hematocrit 38.1 % (36-46); Hemoglobin 12.7 g/dL (12.0-16.0); Lymphocytes Absolute Auto 3000 /uL (1100-4500); Lymphocytes Percent Auto 40.3 % (25-40); Mean Corpuscular HGB Conc 33.3 % (30-36); Mean Corpuscular Volume 78.1 fL (80-100); Monocytes Absolute Auto 500 /uL (0-900); Neutrophils Absolute Auto 3600 /uL (1500-7000); Neutrophils Percent Auto 47.4 % (50-75); Platelet Count 347 X10^3/uL (150-400); Red Blood Cell Count 4.88 X10^6/uL (4.0-5.2); White Blood Cell Count 7.5 X10^3/uL (4.5-11.0)
[2019-03-22 08:57] LABS: Alanine Aminotransferase 38 IU/L (9-52); Albumin 4.6 g/dL (3.5-5.0); Albumin Globulin Ratio 1.6 (1.0-2.8); Alkaline Phosphatase 64 U/L (38-126); Aspartate Aminotransferase 32 IU/L (14-36); Bilirubin Total 0.3 mg/dL (0.2-1.3); Blood Urea Nitrogen 9 mg/dL (7-17); Calcium 9.2 mg/dL (8.4-10.2); Carbon Dioxide 27 mmol/L (22-32); Chloride 103 mmol/L (98-107); Cholesterol 153 mg/dL (140-199); Estimated Glomerular Filt Rate > 60.0 mL/min (>60); Globulin 2.9 g/dL (1.7-4.1); Glucose 103 mg/dL (70-100); HDL Cholesterol 38 mg/dL (40-60); HEMOLYSIS < 15 (0-50); LDL Cholesterol Calculated 98 mg/dL (<100); Potassium 3.9 mmol/L (3.4-5.1); Sodium 140 mmol/L (137-145); Total Protein 7.5 g/dL (6.3-8.2); Triglycerides 85 mg/dL (35-150)
[2019-03-22 09:02] LABS: Hemoglobin A1C% w Est Avg Glu 5.8 % (4.0-6.0)
[2019-03-22 09:41] LABS: Vitamin D 25 Hydroxy (D3) 13.9 ng/mL (30.0-100.0)
[2019-03-22 09:53] LABS: Thyroid Stimulating Hormone 1.46 uIU/mL (0.47-4.68)
== END ==
PROVIDERS: PCP Family Medicine; Visit Provider Family Medicine
DX: Z13.29 Encounter for screening for other suspected endocrine disorder (principal); Z13.220 Encounter for screening for lipoid disorders; Z13.1 Encounter for screening for diabetes mellitus; Z13.0 Encounter for screening for diseases of the blood and blood-forming organs and certain disorders involving the immune mechanism; I10 Essential (primary) hypertension; E55.9 Vitamin D deficiency, unspecified
CPT/HCPCS: 36415; 80053; 80061; 82306; 83036; 84443; 85025

== ENCOUNTER → 2019-06-04 11:03 | Outpatient (CLI) | payer OTHER, SELFPAY ==
[2019-06-04 11:46] LABS: Add Manual Diff / Slide Review NO; Basophils Absolute Auto 100 /uL (0-100); Basophils Percent Auto 0.8 % (0-2); Eosinophils Absolute Auto 400 /uL (0-450); Eosinophils Percent Auto 3.6 % (2-4); Hematocrit 35.6 % (36-46); Hemoglobin 11.4 g/dL (12.0-16.0); Lymphocytes Absolute Auto 3700 /uL (1100-4500); Lymphocytes Percent Auto 35.7 % (25-40); Mean Corpuscular Hemoglobin 24.5 PG (26-34); Mean Corpuscular Volume 76.6 fL (80-100); Monocytes Absolute Auto 700 /uL (0-900); Monocytes Percent Auto 7.1 % (3-14); Neutrophils Absolute Auto 5500 /uL (1500-7000); Neutrophils Percent Auto 52.8 % (50-75); Platelet Count 378 X10^3/uL (150-400); Red Blood Cell Count 4.64 X10^6/uL (4.0-5.2); Red Cell Distribution Width 15.6 % (11.6-14.8); White Blood Cell Count 10.4 X10^3/uL (4.5-11.0)
[2019-06-04 11:48] LABS: Prothrombin Time 11.4 SECONDS (10.1-12.7)
[2019-06-04 11:51] LABS: PTT Partial Thromboplastin Tim 30 SECONDS (26.4-36.2)
== END ==
PROVIDERS: PCP Family Medicine; Visit Provider Family Medicine
DX: R23.8 Other skin changes (principal)
CPT/HCPCS: 36415; 85025; 85610; 85730

== ENCOUNTER → 2019-11-17 08:44 | Outpatient (CLI) | payer OTHER, SELFPAY ==
[2019-11-20 09:36] LABS: COVID19 Sendout Not Detected (Not Detected)
== END ==
PROVIDERS: PCP Family Medicine; Visit Provider Physician Assistant
DX: R05 Cough (principal)
CPT/HCPCS: 87635

== ENCOUNTER → 2020-02-26 19:25 | Outpatient (CLI) | payer OTHER, SELFPAY | PROVIDERS: PCP Family Medicine; Referring Provider Internal Medicine; Visit Provider Internal Medicine | DX: Z23 Encounter for immunization (principal) | CPT/HCPCS: 90471; 90686 ==

== ENCOUNTER → 2020-04-19 08:45 | Outpatient (CLI) | payer OTHER, SELFPAY ==
[2020-04-19 09:42] LABS: COVID19 -Nasal RAPID Negative (Negative)
== END ==
PROVIDERS: PCP Family Medicine; Visit Provider Nurse Practitioner
DX: Z11.59 Encounter for screening for other viral diseases (principal)
CPT/HCPCS: 87635

== ENCOUNTER → 2020-04-21 13:18 | Outpatient (CLI) | payer OTHER, SELFPAY ==
--- NOTE | 2020-04-21 13:21 | DI.RAD.S_ITS ---
PROCEDURE: FL BARIUM SWALLOW W SPEECH INDICATIONS: dypshagia with pills COMPARISON: None. TECHNIQUE: Examination was conducted in conjunction with speech pathology per standard protocol. In the lateral projection, filming was performed of the patient swallowing. AP projection filming may also be performed with patient swallowing. COMPARISON: FINDINGS: Function: The oral preparatory phase appears normal, with proper containment. The subsequent oral propulsive phase, pharyngeal phase, and esophageal phase of swallowing also appear normal with all proffered substances. No laryngotracheal penetration or aspiration. No pathologic vallecular pooling. There is delayed oral propulsion of barium tablet otherwise normal transit time through the esophagus. Morphology: No cricopharyngeal bar is identified. No cervical esophageal webs. No Zenker's diverticulum. No strictures. IMPRESSION: Unremarkable examination as above. Dictated by: Costa Mason M.D. on 04/21/2020 at 14:40 Approved by: Costa Mason M.D. on 04/21/2020 at 14:44
--- NOTE | 2020-04-22 09:15 | ST.SWALLOW ---
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 Sheridan Padgett Reason for Referral Dysphagia Setting Setting Outpatient Care Patient Information Identification Type Name,ID Card Patient History The pt is a 29-yr-old female with complaints of pills sticking in her throat. Typically they pass with additional swallows of water; however, the pt reported one incident when she felt a large capsule sticking for 15 hours. It would not clear with intake of food or liquid. She reported that she also regularly coughs at the ends of her meals. She denied significant coughing during swallow and during oral intake. This has come about within the last year and seems to be worsening. Subjective Observations The pt arrived on time and provided case history. Note: Video recording failed; report reflects observations in real time and of still images. Patient Positioning Position View Lat-A/P Imaging Lateral View Textures Administered Trials Presented Thin Liquid via Spoon,Thin Liquid via Cup,[place] Liquid via Spoon,[place] Liquid via Cup,Honey Liquid via Spoon, Dysphagia Blenderized Textures ,Regular Textures Oral Phase Source: MBSIMP (TM) (C) Bolus Specific Scoring Grid Lip Closure No Impairment (WNL) Tongue Control During Bolus Hold No Impairment (WNL) Bolus Prep/Mastication No Impairment (WNL) Bolus Transport/Lingual Motion WFL A/P Lingual Propulsion Delay No Oral Residue WFL Residue Clearing No Impairment (WNL) Nasal Regurgitation No Additional Oral Phase Observations Oral Peripheral Exam: All oral musculature WNL of strength, coordination and ROM. Pt has natural dentition in excellent condition. The pt exhibited difficulty propelling barium tablet from oral to pharyngeal cavities, requiring multiple attempts. Once propelled, the tablet passed through pharyngeal cavity without difficult. Pharyngeal Phase Source: MBSIMP (TM) (C) Bolus Specific Scoring Grid Delayed Initiation of Pharyngeal Swallow No Soft Palate Elevation No Impairment (WNL) Tongue Base Strength/Range of Motion No Impairment (WNL) Residue Along the Tongue Base Yes: Trace to mild with liquids Clearance of Residue Along Tongue Base No Impairment (WNL) Laryngeal Elevation No Impairment (WNL) Anterior Hyoid Movement No Impairment (WNL) Epiglottic Range of Motion No Impairment (WNL) Vallecular Residue Yes: Trace to mild with liquids Clearance of Vallecular Residue No Impairment (WNL) Laryngeal Vestibular Closure No Impairment (WNL) Pharyngeal Stripping Wave No Impairment (WNL) Pharyngeal Contraction No Impairment (WNL) Posterior Pharyngeal Wall Residue No Upper Esophageal Sphincter Opening No Impairment (WNL) Residue in the Pyriform Sinuses Yes: Trace to mild with liquids Clearance of Residue in the Pyriform No Impairment (WNL) Sinuses Esophageal Clearance Upright Position WFL Pharyngoesophageal Backflow Observed No A/P View Textures Administered Trials Presented [place] Liquid via Cup, Dysphagia Blenderized Textures ,Barium Tablet A/P View Observations Pharyngeal Contraction No Impairment (WNL) Esophageal Function WFL Esophageal Clearance Upright Position WFL Additional Observations The pt reported no sticking sensation during all swallows, including barium tablet. She exhibited no coughing or throat clearing throughout the study. During discussion after the study, when all substances including tablet had passed to stomach, the pt reported feeling the sensation of the tablet at the base of her throat. She described it as not a sticking sensation, but rather residual sensation of the tablet passing through the pharynx. Esophageal Observations Esophageal Function Barium tablet passed to LES where it stopped until the pt consumed another swallow of thin liquid, upon which it passed to stomach. NTL and pudding passed to stomach without delay. Clinical Impressions Dysphagia Type WNL Findings The pt presents with normal oral and pharyngeal swallow function. Screening of esophageal function showed normal passage of NTL and pudding, mildly delayed passage of barium tablet through LES requiring second swallow of liquid. Patient Appropriate for Therapy No Recommendations Diet Liquids Order Thin Diet Order Regular Medication Recommendation As Tolerated Comments May benefit from splitting or crushing meds Aspiration Precautions Recommended Precautions Upright at 90 Degrees,Small Bites/Sips Treatment Plan Additional Recommended Referrals If symptoms persist, pt may benefit from GI Consult. Placement Recommendation After Discharge Home
== END ==
PROVIDERS: PCP Family Medicine; Referring Provider Family Medicine; Visit Provider Family Medicine
DX: R13.10 Dysphagia, unspecified (principal)
CPT/HCPCS: 74230; 92611

== ENCOUNTER → 2020-05-29 16:03 | Outpatient (CLI) | payer OTHER, SELFPAY ==
[2020-05-29] MEDS: COVID-19 VACC(MODERNA-1)/PF 100 MCG/0.5 ML VIAL IM (16:04)
== END ==
PROVIDERS: PCP Family Medicine; Visit Provider Internal Medicine
DX: Z23 Encounter for immunization (principal)
CPT/HCPCS: 0011A; 91301

== ENCOUNTER → 2020-06-26 08:17 | Outpatient (CLI) | payer OTHER, SELFPAY ==
[2020-06-26] MEDS: COVID-19 VACC #2, MRNA(MOD) 100 MCG/0.5 ML VIAL IM (08:23)
== END ==
PROVIDERS: PCP Family Medicine; Visit Provider Internal Medicine
DX: Z23 Encounter for immunization (principal)
CPT/HCPCS: 0012A; 91301

== ENCOUNTER → 2020-07-07 11:51 | Outpatient (CLI) | payer OTHER, SELFPAY ==
[2020-07-07 12:49] LABS: Alanine Aminotransferase 35 IU/L (<35); Albumin 4.5 g/dL (3.5-5.0); Albumin Globulin Ratio 1.3 (1.0-2.8); Alkaline Phosphatase 83 U/L (38-126); Aspartate Aminotransferase 32 IU/L (14-36); BUN Creatinine Ratio 11.8 (6-22); Bilirubin Total 0.2 mg/dL (0.2-1.3); Blood Urea Nitrogen 6 mg/dL (7-17); Calcium 9.5 mg/dL (8.4-10.2); Carbon Dioxide 30 mmol/L (22-32); Chloride 100 mmol/L (98-107); Cholesterol 211 mg/dL (140-199); Estimated Glomerular Filt Rate > 60.0 mL/min (>60); Globulin 3.4 g/dL (1.7-4.1); Glucose 100 mg/dL (70-100); HDL Cholesterol 53 mg/dL (40-60); HEMOLYSIS < 15 (0-50); LDL Cholesterol Calculated 113 mg/dL (<100); Potassium 3.8 mmol/L (3.4-5.1); Sodium 137 mmol/L (137-145); Total Protein 7.9 g/dL (6.3-8.2); Triglycerides 225 mg/dL (35-150)
[2020-07-07 15:22] LABS: Creatinine Urine Random 7.9 mg/dL
[2020-07-07 15:31] LABS: Microalbumin Urine Random < 0.6 mg/dL (0-1.6)
== END ==
PROVIDERS: PCP Family Medicine; Referring Provider Family Medicine; Visit Provider Family Medicine
DX: I10 Essential (primary) hypertension (principal)
CPT/HCPCS: 36415; 80053; 80061; 82043; 82570

== ENCOUNTER → 2020-08-12 14:39 | Outpatient (CLI) | payer OTHER, SELFPAY ==
--- NOTE | 2020-08-12 15:53 | DIET.PN ---
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 Pt is single cooking for one and feels she is reliant on ultraprocessed food diet. Is confused by grocery store on what to choose. defaults to top ramen, or microwave taquitoes, often throws away food with good intentions of preparing something healthy. Pt had roommate for 8y who did all the cooking, she feels she doesn't know how to cook besides boiling water. Health Goals: Wants to feel comfortable in her clothes, take photos without self-consciousness. Usual Day: workdays: Breakfast: overnight oats (oats c chadian yogurt (vanilla or strawberry) applesauce, banana, natividad seeds, a little milk) or eggs and morin from hospital, yogurt parfaits has break at work c banana, aussie bites, water Lunch: gets lunch at the [employer] similar evening to days off Likes to eat candy: chocolate, sweet, salty, etc leans towards vegetarianism-less meat, dairy, eggs but doesn't really like fish, beans, hasn't had soy foods, not sure what to do with nuts. Day off: sleeps in until 8am, often gets up at 11am gets bagel c cream cheese and red bull soda (strawberry watermelon) runs errands, won't eat again until 4-5pm dinner: top ramen or taquitoes or salad c shredded cheese, croutons, balsamic watches tv in bed or does organizing, has snacks goes to bed 9pm drinks a lot of water throughout the day (no soda or juice other than the red bull drink) HT: 5'3 WT: 190# (was down to 160# after tonsils out) BMI: 33.7 Labs: Cr 0.51 L, FBG 100, TG 225 H, TC 211 H, LDL 113 H, HDL 53 WNL Nutrition Diagnosis: altered nutrition related laboratory values r/t undesirable food choices and nutrition related knowledge deficit aeb TG 225 H, TC 211 H, LDL 113 H, BMI 33.7, pt reliant on ultraprocessed foods (ramen, taquitos) and sugar sweetened beverages (red bull c syrup, coffee c syrup). Interventions: 1. Educated pt on Hunger Scale with instruction to eat at 3 and stop at 8. Assess what is going on when eating at a 5. 2. Educated pt on healthy plate balance. Used diagram to aim for 1/4 pro, 1/4 cho, and 1/2 f/v. Used food models to problem solve current meals and plan future healthy, balanced meals. 3. Educated pt on added sugar in diet. Practiced label reading and manipulating numbers based on actual serving size consumed. 4. Provided handouts on vegetarian nutrients of concern, vegan protein sources, healthy snack worksheet, and powerbowl recipe. 5. Encouraged pt to look into meal delivery service such as [id number] for healthy, ready made options as she is building her nutrition knowledge and skill levels. Pt will spend the next two weeks noticing her current patterns and will start to make adjustments per this conversation. EER: limit added sugar to 40g/d, 85g PRO/d Monitoring/Evaluations: f/u in 2w for more nutrition education, assess progress, problem solve barriers.
== END ==
PROVIDERS: PCP Family Medicine; Referring Provider Family Medicine; Visit Provider Family Medicine
DX: I10 Essential (primary) hypertension (principal); E78.5 Hyperlipidemia, unspecified; E78.1 Pure hyperglyceridemia; E66.9 Obesity, unspecified; Z68.33 Body mass index [BMI] 33.0-33.9, adult; Z71.3 Dietary counseling and surveillance
CPT/HCPCS: 97802

== ENCOUNTER → 2020-08-27 14:40 | Outpatient (CLI) | payer OTHER, SELFPAY ==
--- NOTE | 2020-08-27 15:59 | DIET.PN ---
Dietary Progress Note 29[address] f/u for help with healthy diet to manage HTN, HLD, and morbid obesity. Pt has ignored nutrition most of her life secondary to a mom who had bad relationship to food (strict diet vs no diet). 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 Since last visit pt has worked with hunger scale, noticing when she is hungry, not hungry but eating, and is now having small snack like orange or low sugar protein bar if its not time for a meal but she is hungry. Pt is doing a lot of nutrition label reading especially around added sugar and sodium. Pt went shopping: is experimenting c nuts and seeds, and protein bars, some she likes and some she doesn't but she is happy to be working on increasing her food variety. Pt has switched from sugary Frisian yogurt to plain as she did not want to waste her sugar allowance on yogurt. Pt has switched from full sugar Red Bull sodas a few times per week to SF that she makes at home. She is doing fine with this and is hoping regular Red Bull will taste too sweet so she stops drinking it. Pt is considering Purple Carrot meal kits to assist with dinner meals but wants help in learning how to build meals that are well rounded for dinner. Pt is curious about smoothies, if they are healthy, and how to make them. Interventions: 1. Provided pt handout on smoothie formula to build smoothie meal replacement that is low or no added sugar. Pt purchased frozen fruit mix and will try this. 2. RD provided several recipes for quick plant-based meal ideas including easy sauces to go over protein and veggies, mcgraw pepper nachos, and sheet boyer recipes. Pt will check on insurance coverage so we can space visits to best support her goals. Pt is making smart changes to increase the nutrient density and quality of her food choices.
== END ==
PROVIDERS: PCP Family Medicine; Referring Provider Family Medicine; Visit Provider Family Medicine
DX: I10 Essential (primary) hypertension (principal); E78.5 Hyperlipidemia, unspecified; E66.01 Morbid (severe) obesity due to excess calories
CPT/HCPCS: 97803

== ENCOUNTER 2021-02-04 13:28 | Emergency (ER) | payer OTHER, SELFPAY ==
[2021-02-04] VITALS (13 sets, daily range): BP systolic 119–155; BP diastolic 58–110; PULSE 71–82; RESP 12–24; TEMP 37.1; O2SAT 98–100
--- NOTE | 2021-02-04 13:35 | DI.RAD.S_ITS ---
PROCEDURE: XR CHEST 1V INDICATIONS: chest pain TECHNIQUE: One view of the chest was acquired. COMPARISON: None. FINDINGS: Surgical changes and devices: None. Lungs and pleura: Lungs are clear. No pleural effusions or pneumothorax. Mediastinum: Mediastinal contours appear normal. Heart size is normal. Bones and chest wall: No suspicious bony lesions. Overlying soft tissues appear unremarkable. IMPRESSION: No evidence acute pulmonary process. Dictated by: Elian Mathews M.D. on 02/04/2021 at 14:20 Approved by: Elian Mathews M.D. on 02/04/2021 at 14:20
--- NOTE | 2021-02-04 13:49 | ED_ITS ---
HPI - General Adult General Chief complaint: Dizziness Stated complaint: high blood pressure, dizziness, nausea Time Seen by Provider: 02/04/21 13:43 Source: patient Mode of arrival: Ambulatory History of Present Illness HPI narrative: Patient is a 30-year-old female here for evaluation of a couple days of being lightheaded. Yesterday she had some vomiting. She states she feels very foggy the brain. She also stated that her blood pressure was elevated. She did recently have a change in her blood pressure and depression medications. This was sometime than the past 4-6 weeks. Has not tried anything for her symptoms prior to arrival. Patient denied chest pain. No shortness of breath. Related Data Previous Rx's Medication Instructions Recorded lisinopril 20 mg tablet See Rx Instructions PO DAILY #30 01/14/21 tab venlafaxine 75 mg capsule,extended 75 mg PO QPM #30 cap 01/14/21 release 24 hr ondansetron 4 mg disintegrating 4 mg PO Q6H PRN #10 tab 02/04/21 tablet Allergies Allergy/AdvReac Type Severity Reaction Status Date / Time amphetamine Allergy Mild SEVERE Verified 12/16/20 15:05 NAUSEA + ITCHING azithromycin Allergy Mild SEVERE Verified 12/16/20 15:05 STOMACH CRAMPS gabapentin AdvReac anxious Verified 12/16/20 15:05 Review of Systems Constitutional Constitutional: Reports as per HPI and Reports system reviewed and no additional complaints, except as documented Eyes Eyes: Reports system reviewed and no additional complaints, except as documented Cardiovascular Cardiovascular: Reports system reviewed and no additional complaints, except as documented Respiratory Respiratory: Reports system reviewed and no additional complaints, except as documented Gastrointestinal Gastrointestinal: Reports system reviewed and no additional complaints, except as documented Integumentary/Breasts Skin/Breast: Reports system reviewed and no additional complaints, except as documented Neurologic Neurologic: Reports system reviewed and no additional complaints, except as documented Hematologic/Lymphatic On Anticoagulants: No Patient History Medical History (Updated 02/04/21 @ 16:21 by Samy Peter DO) Acne (~2000) Chicken pox (~1995) Depression Eczema Headache (~2010) History of recurrent ear infection Migraines (~2010) Seasonal allergies Surgical History Anesthesia History of third molar tooth extraction (~2008) Family History Brother Age: 22 Autism Grandmother Multiple sclerosis Mother Age: 49 Ovarian cyst Social History marital status: unmarried,single number of children: 0 household members: friend(s) lives independently: Yes caregiver/support person: No occupational status: employed Smoking Status: Never smoker second hand exposure: No alcohol intake: current substance use type: does not use Smoking Status: Never smoker Exam Initial Vital Signs Initial Vital Signs: Vital Signs Temperature 98.8 F 02/04/21 13:37 Pulse Rate 78 02/04/21 13:37 Respiratory Rate 22 02/04/21 13:37 Blood Pressure 155/110 H 02/04/21 13:37 Pulse Oximetry 100 02/04/21 13:37 Const General: cooperative and comfortable HENMT Head: normal to inspection Eyes General: appearance normal, both eyes and all related structures Resp Effort & Inspection: normal respiratory effort Auscultation: clear to auscultation bilaterally Cardio Rate: regular rate Rhythm: regular rhythm GI Inspection: normal to inspection Skin General: no rashes or lesions noted Neuro General: patient alert, patient awake, patient oriented x3 and moves all extremities Extrem General: normal to inspection and capillary refill normal Psych Appearance: grossly normal and well kempt Scores GCS Dyan coma scale eye opening: Spontaneous Dyan coma scale verbal response: Orientated Dyan coma scale motor response: Obey commands Dyan coma scale total score: 15 Course Orders Ordered: ED Orders 02/04/21 13:35 XR chest 1V Stat EKG-12 Lead Stat 02/04/21 13:57 Complete Blood Count AUTO DIFF Stat Comprehensive Metabolic Panel Stat Lipase Stat Troponin & CK Cardiac Panel Stat Discontinued Medications Acetaminophen (Acetaminophen 325 Mg Tablet) 650 mg PO NOW ONE Stop: 02/04/21 16:20 Last Admin: 02/04/21 16:30 Dose: 650 mg Documented by: AFUA Sodium Chloride (Normal Saline 0.9%) 1,000 mls @ 1,000 mls/hr IV BOLUS ONE Stop: 02/04/21 14:50 Last Infusion: 02/04/21 15:41 Dose: 0 mls/hr Documented by: Admin: 02/04/21 14:05 Dose: 1,000 mls/hr Documented by: AFUA Ondansetron HCl (Ondansetron 4 Mg/2 Ml Inj) 4 mg IV NOW ONE Stop: 02/04/21 14:41 Last Admin: 02/04/21 14:42 Dose: 4 mg Documented by: AFUA Vital Signs Vital signs: Vital Signs - 8 hr 02/04/21 13:37 02/04/21 13:59 02/04/21 14:00 Temperature 98.8 F Pulse Rate 78 77 79 Respiratory Rate 22 Blood Pressure 155/110 H Pulse Oximetry 100 100 100 02/04/21 14:03 02/04/21 14:30 02/04/21 14:31 Temperature Pulse Rate 71 73 72 Respiratory Rate 12 24 18 Blood Pressure 145/70 H 129/60 Pulse Oximetry 100 98 100 02/04/21 15:00 02/04/21 15:01 02/04/21 15:30 Temperature Pulse Rate 76 76 82 Respiratory Rate 22 20 12 Blood Pressure 131/71 Pulse Oximetry 100 100 99 02/04/21 15:31 02/04/21 16:00 02/04/21 16:01 Temperature Pulse Rate 81 75 80 Respiratory Rate 12 20 23 Blood Pressure 119/65 120/58 L Pulse Oximetry 100 98 100 02/04/21 16:30 Temperature Pulse Rate 71 Respiratory Rate 24 Blood Pressure Pulse Oximetry 99 Medical Decision Making Lab Data Lab results reviewed: Yes I reviewed the patient's lab results. Result diagrams: 02/04/21 13:57 02/04/21 13:57 Labs: Lab Results 02/04/21 02/04/21 Range/Units 13:57 13:57 WBC 9.9 (4.5-11.0) X10^3/uL RBC 5.08 (4.0-5.2) X10^6/uL Hgb 12.2 (12.0-16.0) g/dL Hct 38.5 (36-46) % MCV 75.7 L (80-100) fL MCH 24.0 L (26-34) PG MCHC 31.7 (30-36) % RDW 15.9 H (11.6-14.8) % Plt Count 328 (150-400) X10^3/uL Neut % (Auto) 57.1 (50-75) % Lymph % (Auto) 34.9 (25-40) % [place] % (Auto) 5.1 (3-14) % Eos % (Auto) 2.3 (2-4) % Baso % (Auto) 0.6 (0-2) % Neut # (Auto) 5600 (5527-9326) /uL Lymph # (Auto) 3400 (5154-5443) /uL [place] # (Auto) 500 (0-900) /uL Eos # (Auto) 200 (0-450) /uL Baso # (Auto) 100 (0-100) /uL Sodium 136 L (137-145) mmol/L Potassium 3.7 (3.4-5.1) mmol/L Chloride 103 (98-107) mmol/L Carbon Dioxide 21 L (22-32) mmol/L BUN 7 (7-17) mg/dL Creatinine 0.50 L (0.52-1.04) mg/dL Estimated GFR > 60.0 (>60) mL/min BUN/Creatinine Ratio 14.0 (6-22) Glucose 125 H (70-100) mg/dL Calcium 9.1 (8.4-10.2) mg/dL Total Bilirubin 0.6 (0.2-1.3) mg/dL AST 147 H (14-36) IU/L ALT 127 H (<35) IU/L Alkaline Phosphatase 85 (38-126) U/L Total Creatine Kinase 57 (30-135) U/L CK-MB (CK-2) TNP CK-MB (CK-2) Rel Index TNP Troponin I < 0.012 (0.01-0.034) ng/mL Total Protein 7.9 (6.3-8.2) g/dL Albumin 4.7 (3.5-5.0) g/dL Globulin 3.2 (1.7-4.1) g/dL Albumin/Globulin Ratio 1.5 (1.0-2.8) Lipase 116 (23-300) U/L Imaging Data Chest x-ray: Radiologist's Impression: [address] [address] XRay Report Signed Patient: Alannah Ferro MR#: [id number] : 1990 Acct:[id number] Age/Sex: 30 / F Date of Service: 02/04/21 Loc: ED Accession Number: [id number] ?? Procedure: XR chest 1V Ordering Provider: Samy Peter D.O. PROCEDURE:? XR CHEST 1V ? INDICATIONS:? chest pain ? TECHNIQUE:? One view of the chest was acquired.? ? COMPARISON:? None. ? FINDINGS:? ? Surgical changes and devices:? None.? ? Lungs and pleura:? Lungs are clear.? No pleural effusions or pneumothorax.? ? Mediastinum:? Mediastinal contours appear normal.? Heart size is normal.? ? Bones and chest wall:? No suspicious bony lesions.? Overlying soft tissues appear unremarkable.? ? IMPRESSION:? No evidence acute pulmonary process. ? ? ? Dictated by: Elian Mathews M.D. on 02/04/2021 at 14:20 ? ? Approved by: Elian Mathews M.D. on 02/04/2021 at 14:20?? ECG Data Attestation: I personally reviewed and interpreted this ECG as follows: Interpretation: Sinus rhythm Ventricular rate is 69 Normal axis Normal QRS Normal QTC No ST T wave changes MDM Narrative Medical decision making narrative: Patient is nontoxic appearing. Labs unremarkable. Feels better after fluids and Zofran. Afebrile. I feel that we can hold on further workup for now. Will have her continue all of her medications as directed. She was given return precautions and follow-up instructions. She expressed understanding and agreement. Discharge Plan Departure Patient Disposition: Home Clinical Impression: Lightheadedness Instructions: DI for Dizziness-Nonvertigo Activity Restrictions/Additional Instructions: Recommend that you increase your fluid intake. Continue take all of your medications as directed. Contact your primary doctor for a follow-up. Return to the emergency department for any new or worsening symptoms Prescriptions: New ondansetron 4 mg tablet,disintegrating 4 mg PO Q6H PRN (Reason: nausea and vomiting) Qty: 10 RF: 0 No Action venlafaxine 75 mg capsule,extended release 24hr 75 mg PO QPM Qty: 30 RF: 2 lisinopril 20 mg tablet See Rx Instructions PO DAILY Qty: 30 RF: 3 Referrals: Sheridan Padgett MD [Primary Care Provider] -
[2021-02-04 14:03] LABS: Add Manual Diff / Slide Review NO; Basophils Absolute Auto 100 /uL (0-100); Basophils Percent Auto 0.6 % (0-2); Eosinophils Absolute Auto 200 /uL (0-450); Eosinophils Percent Auto 2.3 % (2-4); Hematocrit 38.5 % (36-46); Hemoglobin 12.2 g/dL (12.0-16.0); Lymphocytes Absolute Auto 3400 /uL (1100-4500); Lymphocytes Percent Auto 34.9 % (25-40); Mean Corpuscular HGB Conc 31.7 % (30-36); Mean Corpuscular Volume 75.7 fL (80-100); Monocytes Absolute Auto 500 /uL (0-900); Monocytes Percent Auto 5.1 % (3-14); Neutrophils Absolute Auto 5600 /uL (1500-7000); Neutrophils Percent Auto 57.1 % (50-75); Platelet Count 328 X10^3/uL (150-400); Red Blood Cell Count 5.08 X10^6/uL (4.0-5.2); Red Cell Distribution Width 15.9 % (11.6-14.8); White Blood Cell Count 9.9 X10^3/uL (4.5-11.0)
[2021-02-04] MEDS: SODIUM CHLORIDE 0.9% 1,000 ML 1000 ML IV (14:05)
[2021-02-04 14:34] LABS: Troponin I < 0.012 ng/mL (0.01-0.034)
[2021-02-04] MEDS: ONDANSETRON 4 MG/2 ML INJ IV (14:42)
[2021-02-04 15:20] LABS: Alanine Aminotransferase 127 IU/L (<35); Albumin 4.7 g/dL (3.5-5.0); Albumin Globulin Ratio 1.5 (1.0-2.8); Alkaline Phosphatase 85 U/L (38-126); Aspartate Aminotransferase 147 IU/L (14-36); Bilirubin Total 0.6 mg/dL (0.2-1.3); Blood Urea Nitrogen 7 mg/dL (7-17); Calcium 9.1 mg/dL (8.4-10.2); Carbon Dioxide 21 mmol/L (22-32); Chloride 103 mmol/L (98-107); Creatine Kinase 57 U/L (30-135); Estimated Glomerular Filt Rate > 60.0 mL/min (>60); Globulin 3.2 g/dL (1.7-4.1); Glucose 125 mg/dL (70-100); HEMOLYSIS 44 (0-50); Lipase 116 U/L (23-300); Potassium 3.7 mmol/L (3.4-5.1); Sodium 136 mmol/L (137-145); Total Protein 7.9 g/dL (6.3-8.2)
[2021-02-04] MEDS: ACETAMINOPHEN 325 MG TABLET 650 MG PO (16:30)
== END 2021-02-04 16:34 | disposition home or self-care (01) ==
PROVIDERS: Emergency Provider Emergency Medicine; PCP Family Medicine
DX: R42 Dizziness and giddiness (principal); R07.9 Chest pain, unspecified
CPT/HCPCS: 36415; 71045; 80053; 82550; 83690; 84484; 85025; 93005; 93010; 96361; 96374; 99283; 99284; J2405

== ENCOUNTER → 2021-04-13 15:06 | Outpatient (CLI) | payer OTHER, SELFPAY | PROVIDERS: PCP Family Medicine; Referring Provider Internal Medicine; Visit Provider Internal Medicine | DX: Z23 Encounter for immunization (principal) | CPT/HCPCS: 90471; 90686 ==

== ENCOUNTER → 2021-11-18 15:12 | Outpatient (CLI) | payer OTHER, MEDICAID, SELFPAY ==
--- NOTE | 2021-11-18 15:15 | DI.US.S_ITS ---
PROCEDURE: US ABDOMEN COMPLETE INDICATIONS: ABNORMAL LFTS; NAUSEA TECHNIQUE: Real-time scanning was performed of the abdominal and retroperitoneal organs, with image documentation. COMPARISON: None. FINDINGS: Technically suboptimal study secondary to body habitus. Liver: Liver is normal in size and homogeneous in echotexture. Moderate diffuse parenchymal hyperechogenicity. Difficult to penetrate entire liver with ultrasound. No definite liver mass. Gallbladder: The gallbladder is normal without stones, sludge, wall thickening, or pericholecystic fluid. Biliary ducts: Intrahepatic bile ducts are non-dilated. Extrahepatic bile duct caliber measures 4.8 mm. Normal is 6-7 mm or less in diameter, or 10 mm or less post-cholecystectomy. Pancreas: Visualized portions of the pancreas are sonographically normal. Spleen: Spleen is normal in size and homogeneous in echotexture. Kidneys: Kidneys are normal in size and echotexture. Right kidney measures 11.0 cm long; left kidney measures 11.1 cm long. No hydronephrosis or nephrolithiasis. No solid masses. Aorta: Visualized aorta is normal in caliber at less than 3 cm. Iliacs: Proximal common iliac arteries are normal in caliber at less than 2.5 cm. IVC: Intrahepatic inferior vena cava is patent. Miscellaneous: No free abdominal fluid. IMPRESSION: 1. Hepatic steatosis or other intrinsic liver disease. 2. Normal gallbladder. 3. No definite liver mass, though ultrasound evaluation of the liver is limited due to its density. If there is continued concern for focal mass, CT or MR hepatic protocol is recommended. Dictated by: Faviola Hinojosa M.D. on 11/18/2021 at 17:29 Approved by: Faviola Hinojosa M.D. on 11/18/2021 at 17:31
--- NOTE | 2021-11-18 15:15 | DI.US.S_ITS ---
PROCEDURE: US PELVIC COMPLETE INDICATIONS: DUB TECHNIQUE: Real-time scanning was performed of the pelvic organs, with image documentation. Additional endovaginal scanning was necessary due to incomplete visualization of the adnexal and endometrial structures by transabdominal scanning. COMPARISON: None. FINDINGS: Uterus: Uterus is anteverted and normal in size at 6.0 x 3.7 x 4.7 cm. The myometrium is homogeneous. The endometrium measures 4.3 mm combined thickness. Ovaries: Ovaries are normal measuring 3.2 x 1.7 x 2.7 cm on the right and 3.2 x 1.7 x 2.4 cm on the left. Less than 12 subcentimeter follicular cysts bilaterally. Less than 12 sub cm follicular cysts seen bilaterally. No adnexal masses seen. Other: No pathologic free abdominal or pelvic fluid. IMPRESSION: No source for dysfunctional uterine bleeding identified. We strive to produce accurate, complete, and clear reports of imaging services. To assist us in improving patient care, this report was composed using standard report templates and voice recognition software. Therefore, it may contain abnormal punctuation, insertions and/or omissions. Occasional wrong-word or sound-alike substitutions may occur. Though we review the report and make efforts to correct it, we do recommend that the report be read carefully in proper context to recognize any text inaccuracies. Dictated by: Leon NOLASCO Interpreted: Faviola Hinojosa MD on 11/18/2021 at 16:28 Transcribed by: FARHAN on 11/18/2021 at 16:30 Approved by: Faviola Hinojosa M.D. on 11/24/2021 at 9:05
== END ==
PROVIDERS: PCP Family Medicine; Referring Provider Physician Assistant; Visit Provider Physician Assistant
DX: N92.6 Irregular menstruation, unspecified (principal); R11.0 Nausea; R79.89 Other specified abnormal findings of blood chemistry; K76.0 Fatty (change of) liver, not elsewhere classified
CPT/HCPCS: 76700; 76830; 76856

== ENCOUNTER → 2022-01-03 11:59 | Outpatient (CLI) | payer OTHER, MEDICAID, SELFPAY ==
--- NOTE | 2022-01-03 12:02 | DI.CT.S_ITS ---
PROCEDURE: CT ABDOMEN LIVER PROTOCOL INDICATIONS: elevated LFT's TECHNIQUE: 4 phase scanning was performed. Non-contrast 5 mm axial sections acquired from the diaphragm to the iliac crests. Following the administration of intravenous contrast, 5 mm thick arterial-phase, portal venous-phase, and 5-minute delayed phase images were acquired through the liver. 5 mm thick coronal and sagittal reformats were performed. For radiation dose reduction, the following was used: automated exposure control, adjustment of mA and/or kV according to patient size. COMPARISON: [facility], MR, L-SPINE WITHOUT CONTRAST, 02/11/2017, 18:44. [facility], US, US ABDOMEN COMPLETE, 11/18/2021, 15:24. FINDINGS: Image quality: Excellent. Lung bases: Lung bases are clear. Heart size is normal. A small hiatal hernia is incidentally noted. Liver: Diffuse fatty liver infiltration is noted. The liver demonstrates prominent size. No focal liver lesion is seen. No abnormal enhancement can be seen on this multiphase study. Other solid organs: Gallbladder is largely collapsed at the time of this study.. Biliary system is non dilated. Pancreas is normal in morphology. Spleen is normal in size and enhancement. No adrenal nodules. Both kidneys demonstrate normal size and enhancement, without hydronephrosis or nephrolithiasis. Nodes and vessels: No retroperitoneal or mesenteric adenopathy by size criteria. Aorta and inferior vena cava are normal in size. Bowel and peritoneum: Mild focal wall thickening can be seen involving the cecum. Unenhanced bowel loops are otherwise normal in caliber. No free fluid or air. Bones: No suspicious bony lesions. No vertebral body compression fractures. Lower lumbar spine degenerative changes are seen. Miscellaneous: No ventral hernias. IMPRESSION: Generalized hepatic steatosis, with a mildly enlarged liver. No focally suspicious liver lesion is seen. Mild focal wall thickening can be seen involving the cecum. Differential diagnosis includes artifact from underdistention and colitis. Please correlate with potential infectious and inflammatory causes of colitis. Incidental note is made of: Small hiatal hernia Lower lumbar spine degenerative change Dictated by: Oni Young M.D. on 01/03/2022 at 16:18 Approved by: Oni Young M.D. on 01/03/2022 at 16:22
== END ==
PROVIDERS: PCP Family Medicine; Referring Provider Family Medicine; Visit Provider Family Medicine
DX: R79.89 Other specified abnormal findings of blood chemistry (principal); K76.0 Fatty (change of) liver, not elsewhere classified; K44.9 Diaphragmatic hernia without obstruction or gangrene; M47.816 Spondylosis without myelopathy or radiculopathy, lumbar region
CPT/HCPCS: 74170; Q9967

== ENCOUNTER → 2022-03-05 11:03 | Outpatient (CLI) | payer OTHER, MEDICAID, SELFPAY ==
[2022-03-05 11:58] LABS: Hemoglobin A1C% w Est Avg Glu 10.3 % (4.0-6.0)
[2022-03-05 12:13] LABS: Alanine Aminotransferase 40 IU/L (<35); Albumin 4.3 g/dL (3.5-5.0); Albumin Globulin Ratio 1.4 (1.0-2.8); Alkaline Phosphatase 90 U/L (38-126); Aspartate Aminotransferase 29 IU/L (14-36); BUN Creatinine Ratio 12.5 (6-22); Bilirubin Total 0.3 mg/dL (0.2-1.3); Blood Urea Nitrogen 6 mg/dL (7-17); Calcium 8.4 mg/dL (8.4-10.2); Carbon Dioxide 26 mmol/L (22-32); Chloride 98 mmol/L (98-107); Cholesterol 184 mg/dL (140-199); Estimated Glomerular Filt Rate > 60 mL/min (>60); Globulin 3.1 g/dL (1.7-4.1); Glucose 167 mg/dL (70-100); HDL Cholesterol 38 mg/dL (40-60); HEMOLYSIS < 15 (0-50); LDL Cholesterol Calculated 123 mg/dL (<100); Potassium 3.9 mmol/L (3.4-5.1); Sodium 134 mmol/L (137-145); Total Protein 7.4 g/dL (6.3-8.2); Triglycerides 113 mg/dL (35-150)
[2022-03-05 12:33] LABS: Follicle Stimulating Hormone 6.44 mIU/mL; Progesterone, Total 0.52 ng/mL
[2022-03-05 12:43] LABS: TSH w/ Reflex to FT4 1.61 uIU/mL (0.47-4.68)
[2022-03-05 12:47] LABS: Testosterone 21.6 ng/dL (5.71-77.0)
[2022-03-05 16:14] LABS: Creatinine Urine Random 73.1 mg/dL
[2022-03-05 16:19] LABS: Microalbumi Creatinin Ratio Ur 16.4 ug/mg CR (<30); Microalbumin Urine Random 1.2 mg/dL (0-1.6)
[2022-03-11 10:01] LABS: Estrogen 903 pg/mL (.)
== END ==
PROVIDERS: PCP Family Medicine; Referring Provider Family Medicine; Visit Provider Family Medicine
DX: N92.6 Irregular menstruation, unspecified (principal); I10 Essential (primary) hypertension; R73.03 Prediabetes
CPT/HCPCS: 36415; 80053; 80061; 82043; 82570; 82672; 83001; 83002; 83036; 84144; 84403; 84443

== ENCOUNTER → 2022-09-13 09:00 | Outpatient (CLI) | payer OTHER, MEDICAID, SELFPAY ==
[2022-09-14 08:37] LABS: x Labcorp Estim. Avg Glu (eAG) 269 mg/dL (.)
== END ==
PROVIDERS: PCP Family Medicine; Referring Provider Family Medicine; Visit Provider Family Medicine
DX: E11.65 Type 2 diabetes mellitus with hyperglycemia (principal); I10 Essential (primary) hypertension
CPT/HCPCS: 36415; 83036

== ENCOUNTER → 2022-12-11 12:35 | Outpatient (CLI) | payer OTHER, MEDICAID, SELFPAY ==
--- NOTE | 2022-12-11 12:37 | DI.RAD.S_ITS ---
PROCEDURE: XR LUMBAR SPINE 2-3V INDICATIONS: acute on chronic back pain known L4/5 herniat no recent XR TECHNIQUE: 3 views of the lumbar spine were acquired. COMPARISON: [facility], , XR LUMBAR SPINE MIN 4V, 12/02/2017, 14:00. FINDINGS: Bones: 5 tho-paw-prezdis vertebrae are present. There is normal bony alignment. No acute vertebral body compression fractures. No suspicious bony lesions. Lumbar spondylitic changes are again noted at L4-5 and L5-S1 with associated mid and lower lumbar facet arthropathy. Soft tissues: Overlying bowel gas pattern is normal. No suspicious soft tissue calcifications. IMPRESSION: Lumbar spine without acute osseous abnormalities. Lower lumbar spondylosis most pronounced at L4-5 and L5-S1. Dictated by: Sam Rubin M.D. on 12/11/2022 at 12:16 Approved by: Sam Rubin M.D. on 12/11/2022 at 12:20
[2022-12-12 08:44] LABS: Labcorp Hemoglobin (Hb) A1c 9.9 % (4.8-5.6)
== END ==
PROVIDERS: PCP Family Medicine; Referring Provider Student in an Organized Health Care Education/Training Program; Visit Provider Student in an Organized Health Care Education/Training Program
DX: M47.816 Spondylosis without myelopathy or radiculopathy, lumbar region (principal); M47.817 Spondylosis without myelopathy or radiculopathy, lumbosacral region; M54.50 Low back pain, unspecified; E11.65 Type 2 diabetes mellitus with hyperglycemia
CPT/HCPCS: 36415; 72100; 83036

== ENCOUNTER → 2023-04-20 12:05 | Outpatient (CLI) | payer OTHER, MEDICAID, SELFPAY ==
[2023-04-20 13:36] LABS: Add Manual Diff / Slide Review NO; Basophils Absolute Auto 0 /uL (0-100); Basophils Percent Auto 0.3 % (0-2); Eosinophils Absolute Auto 300 /uL (0-450); Eosinophils Percent Auto 3.3 % (2-4); Hematocrit 36.4 % (36-46); Hemoglobin 11.7 g/dL (12.0-16.0); Lymphocytes Absolute Auto 3600 /uL (1100-4500); Lymphocytes Percent Auto 37.8 % (25-40); Mean Corpuscular HGB Conc 32.1 % (30-36); Mean Corpuscular Hemoglobin 25.1 PG (26-34); Mean Corpuscular Volume 78.3 fL (80-100); Monocytes Absolute Auto 500 /uL (0-900); Monocytes Percent Auto 5.3 % (3-14); Neutrophils Absolute Auto 5100 /uL (1500-7000); Neutrophils Percent Auto 53.3 % (50-75); Platelet Count 336 X10^3/uL (150-400); Red Blood Cell Count 4.65 X10^6/uL (4.0-5.2); Red Cell Distribution Width 15.2 % (11.6-14.8); White Blood Cell Count 9.6 X10^3/uL (4.5-11.0)
[2023-04-20 13:47] LABS: Hemoglobin A1C% w Est Avg Glu 9.7 % (4.0-6.0)
[2023-04-20 14:07] LABS: Alanine Aminotransferase 66 IU/L (<35); Albumin 4.3 g/dL (3.5-5.0); Albumin Globulin Ratio 1.5 (1.0-2.8); Alkaline Phosphatase 73 U/L (38-126); Aspartate Aminotransferase 54 IU/L (14-36); Bilirubin Total 0.4 mg/dL (0.2-1.3); Blood Urea Nitrogen 4 mg/dL (7-17); Calcium 8.8 mg/dL (8.4-10.2); Carbon Dioxide 26 mmol/L (22-32); Chloride 100 mmol/L (98-107); Cholesterol 152 mg/dL (140-199); Estimated Glomerular Filt Rate > 60 mL/min (>60); Globulin 2.8 g/dL (1.7-4.1); Glucose 163 mg/dL (70-100); HDL Cholesterol 38 mg/dL (40-60); HEMOLYSIS < 15 (0-50); LDL Cholesterol Calculated 93 mg/dL (<100); Potassium 3.7 mmol/L (3.4-5.1); Sodium 135 mmol/L (137-145); Total Protein 7.1 g/dL (6.3-8.2); Triglycerides 107 mg/dL (35-150)
[2023-04-20 16:09] LABS: Creatinine Urine Random 29.4 mg/dL
[2023-04-20 16:18] LABS: Microalbumi Creatinin Ratio Ur 23.8 ug/mg CR (<30); Microalbumin Urine Random 0.7 mg/dL (0-1.6)
== END ==
PROVIDERS: PCP Family Medicine; Referring Provider Family Medicine; Visit Provider Family Medicine
DX: Z13.9 Encounter for screening, unspecified (principal); E11.65 Type 2 diabetes mellitus with hyperglycemia; K76.0 Fatty (change of) liver, not elsewhere classified
CPT/HCPCS: 36415; 80053; 80061; 82043; 82570; 83036; 85025

== ENCOUNTER → 2023-06-14 10:56 | Outpatient (CLI) | payer OTHER, MEDICAID, SELFPAY ==
--- NOTE | 2023-06-15 17:11 | DIAB.MNT ---
Initial Diabetes Medical Nutrition Therapy Assessment Name: Alannah Ferro Date: 06/14/23 Time: 11a-1210p Dx: Type II Diabetes Provider: Dayron Alannah presents today for initial DM visit. Initially diagnosed x 1 year ago. [place] the diagnosis was very overwhelming and describes her actions at the time as avoidance. Outside of taking Dm medications, has not yet made any changes. Reports FH of GDM with mother when preg with sibling. No other FH reported. Feels that she was eating healthy and exercising when diagnosed, which made her feel as though these actions were pointless per report. Then spiraled and would eat large quantities of sugar, ie sour candies. Has reduced soda intake recently. Goes long periods of time without eating. May have symptoms of lows at that time, ie foggy, shaky. Interested in smoothies as a quick meal option. Mother bought her small acid retort operator. Not sure what to put in them. One limitation of nutrition changes in the past is limited ability to cook. Looking for easy options. H/o diarrhea. Taking soluble fiber supplement, which seems to help. 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 Plans to start [employer] three days per week. Has access to bike, treadmill, rowing at [employer]. Self-Monitoring Blood Glucose: None. has meter, not sure how to use it. Diabetes Medications: 2000mg Metformin ER 2mg Exanatide q wk Pertinent Labs: hgA1c: 9.7% 03/2023 Past Medical History: (Last Reviewed 11/30/22 @ 19:04 by Olinda Sierra PA-C) Acne (~2000) Chicken pox (~1995) Depression Eczema Dermatitis dry patch like psoriasis but not Fatty liver Headache (~2010) Patient states headaches go away with ibuprofen or Tylenol History of recurrent ear infection [id number] Migraines (~2010) Seasonal allergies No longer bother her Nutrition Rx: Carbohydrates: Meal:30-45g Snack:15-30g Nutrition Diagnosis: - Nutrition and food related knowledge deficit r/t new dx T2Dm and no previous MNT aeb pt report and hgA1c of 9.7% - Physical inactivity r/t stage of change preparation aeb pt report of interest in more activity - Self monitoring deficit r/t lack of knowledge of use aeb pt report Intervention: This participant was very receptive. Provided appropriate educational handouts. Discussed the following topics: Completed intake assessment. Discussed barriers to care. Pathophysiology of T2DM HgA1c, its correlation to blood glucose numbers, and rationale for goal Importance of self-monitoring, how often, and when to check. Suggested checking at different times to evaluate meals Plate Method, impact of macronutrients on blood sugar, meal timing, pairing macronutrients and spreading out carbohydrates for better blood glucose management Recommended servings for carbohydrates at meals and snacks Heart health nutrition Brainstormed smoothie and snack ideas based on food preferences Role of physical activity Created SMART goals for patient self-care and success. Goals: Bring meter next visit Choose SF energy drink option Add pro to smoothies Add pro and veg to meals Take photo of candy label Follow-up: MAURY AGUIRRE follow-up in 2-3 weeks Janice Bruno RDN, IRISES Certified Diabetes Care and Habitat Management Coordinator P: [phone] Thank you for this referral
== END ==
LOC: DIET 10:57
PROVIDERS: PCP Family Medicine; Referring Provider Family Medicine; Visit Provider Family Medicine
DX: E11.9 Type 2 diabetes mellitus without complications (principal); Z79.84 Long term (current) use of oral hypoglycemic drugs; Z71.3 Dietary counseling and surveillance
CPT/HCPCS: 97802

== ENCOUNTER → 2023-06-28 10:34 | Outpatient (CLI) | payer OTHER, MEDICAID, SELFPAY ==
--- NOTE | 2023-07-12 09:16 | DIAB.MNTFU ---
Follow-up Diabetes Medical Nutrition Therapy Assessment Name: Alannah Ferro Date: 06/28/23 Time: 1040-12 Dx: Type II Diabetes Alannah presents for Dm follow-up. Reports she is making smoothies with protein. Needs new spray blender though. Likes the silken tofu in smoothies discussed last visit. Smoothies seem balanced with CHO and pro. Tried her energy drink sf and did not like it. Instead of choosing sf plans to cut it out of her diet, as it is also expensive per report. Finds evenings hard in terms of hunger. No consistent with eating during the day, which results in more eating in evening. Diet recall: 9am: string cheese or cereal with espresso coffee with milk and sf creamer lunch: soup or smoothie dinner: soup again or fast food (soft taco with cheesy potatoes OR chicken strips with fries, gravy, sundae, some soda) Fast food 2-3x per week. Does not like pb or nuts. Does not like diet soda. High Na intake with eating out and soups. 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 Started [employer] job and has access to gym equipment there, but has not tried yet. Self-Monitoring Blood Glucose: Brought meter for education. Test in clinic was 170mg/dl pre meal (6 hours after poptart) Diabetes Medications: 2000mg Metformin ER 2mg Exanatide q wk Pertinent Labs: hgA1c: 9.7% 03/2023 Past Medical History: (Last Reviewed 11/30/22 @ 19:04 by Olinda Sierra PA-C) Acne (~2000) Chicken pox (~1995) Depression Eczema Dermatitis dry patch like psoriasis but not Fatty liver Headache (~2010) Patient states headaches go away with ibuprofen or Tylenol History of recurrent ear infection [id number] Migraines (~2010) Seasonal allergies No longer bother her Nutrition Rx: Carbohydrates: Meal:30-45g Snack:15-30g Nutrition Diagnosis: - Nutrition and food related knowledge deficit r/t new dx T2Dm and no previous MNT aeb pt report and hgA1c of 9.7%- improved - Physical inactivity r/t stage of change preparation aeb pt report of interest in more activity - in progress - Self monitoring deficit r/t lack of knowledge of use aeb pt report - in progress - Excessive CHO intake r/t fast food choices and lack of knowledge aeb diet recall- new - Excessive Na intake r/t fast food and prepackaged soup aeb diet recall- new Intervention: This participant was very receptive. Provided appropriate educational handouts. Discussed the following topics: SMBG education and return demo Brainstormed meal/snack ideas to help during the day and to reduce eating out Eating out tips, label reading, and comparing options when eating out Meal planning and carb counting review Physical activity plan Sodium intake and impact on BP Created SMART goals for patient self-care and success. Goals: Bring meter next visit- met Choose SF energy drink option- met Add pro to smoothies- met Add pro and veg to meals -in progress Take photo of candy label- not met Try overnight oats- new Reduce broth intake- new Try tips for eating out- new Check BG 1-2 x per day and bring next visit- new Follow-up: MAURY AGUIRRE follow-up in 2-3 weeks Janice Bruno RDN, TIMOTHY Certified Diabetes Care and Electric Distribution Checker P: [phone] Thank you for this referral
== END ==
LOC: DIET 10:34
PROVIDERS: PCP Family Medicine; Referring Provider Family Medicine; Visit Provider Family Medicine
DX: E11.9 Type 2 diabetes mellitus without complications (principal); Z79.84 Long term (current) use of oral hypoglycemic drugs; Z79.85 Long-term (current) use of injectable non-insulin antidiabetic drugs; Z71.3 Dietary counseling and surveillance
CPT/HCPCS: 97803

== ENCOUNTER → 2023-08-30 12:53 | Outpatient (CLI) | payer OTHER, MEDICAID, SELFPAY ==
--- NOTE | 2023-09-13 17:36 | DIAB.MNTFU ---
Follow-up Diabetes Medical Nutrition Therapy Assessment Name: Alannah Ferro Date: 08/30/23 Time: 105-205p Dx: Type II Diabetes Alannah presents for follow-up DM visit. Reports GI SE with Ozempic. Some relief recently, but symptoms persist. Switched off exenutide after lumps presented from injections. Not making protein smoothies, needs a new chemical blender, expense is a barrier. Reduced high Na broth intake. Making casserole with high Na cream soup, rice and veggies. Not drinking soda last couple of weeks. Cut out sugar energy drinks. Water 80oz per day. H/o excessive hunger with THC use. States less hunger since ozempic start. Diet recall: 1p: half bagel with cream cheese OR 2c casserole 7-8p: lunchables with cheese, meat, crackers sn: nothing or seeds or was easter candy or pretzel sticks Anthropometrics: Ht: 63 Wt: 183# 06/2023 Physical Activity: None lately. Plans to increase dog walking. Has not used gym equipment. 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 Self-Monitoring Blood Glucose: Just picked up supplies. No readings yet. Diabetes Medications: 0.25mg Ozempic 2000mg Metformin ER Pertinent Labs: hgA1c: 9.7% 03/2023 Past Medical History: (Last Reviewed 11/30/22 @ 19:04 by Olinda Sierra PA-C) Acne (~2000) Chicken pox (~1995) Depression Eczema Dermatitis dry patch like psoriasis but not Fatty liver Headache (~2010) Patient states headaches go away with ibuprofen or Tylenol History of recurrent ear infection [phone] Migraines (~2010) Seasonal allergies No longer bother her Nutrition Rx: Carbohydrates: Meal:30-45g Snack:15-30g Nutrition Diagnosis: - Nutrition and food related knowledge deficit r/t new dx T2Dm and no previous MNT aeb pt report and hgA1c of 9.7%- improved - Physical inactivity r/t stage of change preparation aeb pt report of interest in more activity - in progress - Self monitoring deficit r/t lack of knowledge of use aeb pt report - in progress - Excessive CHO intake r/t fast food choices and lack of knowledge aeb diet recall- improved - Excessive Na intake r/t fast food and prepackaged soup aeb diet recall- in progress Intervention: This participant was very receptive. Provided appropriate educational handouts. Discussed the following topics: Blood sugar review and trends. Impact of food intake on results. Plate Method, impact of macronutrients on blood sugar, meal timing, carbohydrate counting, pairing macronutrients and spreading out carbohydrates for better blood glucose management Heart health nutrition: fats, fiber, and sodium Eating out and grocery shopping tips Meal planning and carb counting review Physical activity plan and progress Created SMART goals for patient self-care and success. Goals: Try overnight oats- not met Reduce broth intake- met Try tips for eating out- met Check BG 1-2 x per day and bring next visit- not met Check low Na soup- new Walk1x per week or more- new Try lower CHO tuna casserole- new Check BG 1-2x per day- continue Follow-up: MAURY AGUIRRE follow-up in 2-3 weeks Janice Bruno RDN, TIMOTHY Certified Diabetes Care and Manager Of Purchasing P: [phone] Thank you for this referral
== END ==
PROVIDERS: PCP Family Medicine; Referring Provider Family Medicine; Visit Provider Family Medicine
DX: E11.9 Type 2 diabetes mellitus without complications (principal); Z71.3 Dietary counseling and surveillance; Z79.4 Long term (current) use of insulin; Z79.84 Long term (current) use of oral hypoglycemic drugs
CPT/HCPCS: 97803

== ENCOUNTER → 2024-02-16 11:23 | Outpatient (CLI) | payer OTHER, MEDICAID, SELFPAY ==
[2024-02-16 13:10] LABS: Alanine Aminotransferase 73 IU/L (<35); Albumin 4.8 g/dL (3.5-5.0); Albumin Globulin Ratio 1.8 (1.0-2.8); Alkaline Phosphatase 79 U/L (38-126); Aspartate Aminotransferase 47 IU/L (14-36); BUN Creatinine Ratio 8.6 (6-22); Bilirubin Total 0.4 mg/dL (0.2-1.3); Blood Urea Nitrogen 5 mg/dL (7-17); Calcium 9.6 mg/dL (8.4-10.2); Carbon Dioxide 25 mmol/L (22-32); Chloride 99 mmol/L (98-107); Cholesterol 195 mg/dL (140-199); Estimated Glomerular Filt Rate > 60 mL/min (>60); Globulin 2.7 g/dL (1.7-4.1); Glucose 141 mg/dL (70-100); HDL Cholesterol 39 mg/dL (40-60); HEMOLYSIS < 15 (0-50); LDL Cholesterol Calculated 136 mg/dL (<100); Sodium 137 mmol/L (137-145); Total Protein 7.5 g/dL (6.3-8.2); Triglycerides 102 mg/dL (35-150)
[2024-02-16 13:31] LABS: Hemoglobin A1C% w Est Avg Glu 6.9 % (4.0-6.0)
[2024-02-16 15:54] LABS: Microalbumin Urine Random 2.3 mg/dL (0-1.6)
[2024-02-16 16:02] LABS: Creatinine Urine Random 70.06 mg/dL
== END ==
PROVIDERS: PCP Family Medicine; Referring Provider Family Medicine; Visit Provider Family Medicine
DX: E11.65 Type 2 diabetes mellitus with hyperglycemia (principal)
CPT/HCPCS: 36415; 80053; 80061; 82043; 82570; 83036

== ENCOUNTER → 2024-12-28 10:15 | Outpatient (CLI) | payer OTHER, SELFPAY ==
[2024-12-28 10:46] LABS: Add Manual Diff / Slide Review NO; Hematocrit 34.3 % (36-46); Hemoglobin 10.9 g/dL (12.0-16.0); Lymphocytes Absolute Auto 3100 /uL (1100-4500); Mean Corpuscular HGB Conc 31.8 % (30-36); Mean Corpuscular Hemoglobin 24.4 PG (26-34); Mean Corpuscular Volume 76.8 fL (80-100); Platelet Count 420 X10^3/uL (150-400)
[2024-12-28 11:21] LABS: Vitamin D 25 Hydroxy (D3) 47.8 ng/mL (30.0-100.0)
[2024-12-28 19:08] LABS: Folate 5.8 ng/mL (2.76-20.0); Vitamin B12 565 pg/mL (239-931)
[2024-12-28 22:11] LABS: TSH w/ Reflex to FT4 0.91 uIU/mL (0.47-4.68)
[2024-12-31 19:43] LABS: HEMOLYSIS < 15 (0-50); Iron 30 ug/dL (37-170)
[2024-12-31 19:56] LABS: Percent Iron Saturation 8 % (15-50); Total Iron Binding Capacity 382 ug/dL (265-497); Transferrin 309 mg/dL (206-381)
[2024-12-31 20:20] LABS: Ferritin 5 ng/mL (6-137)
== END ==
PROVIDERS: PCP Family Medicine; Referring Provider Student in an Organized Health Care Education/Training Program; Visit Provider Student in an Organized Health Care Education/Training Program
DX: F33.41 Major depressive disorder, recurrent, in partial remission (principal); E55.9 Vitamin D deficiency, unspecified; D64.9 Anemia, unspecified
CPT/HCPCS: 36415; 82306; 82607; 82728; 82746; 83540; 83550; 84443; 85025

== ENCOUNTER → 2025-02-22 13:31 | Outpatient (CLI) | payer OTHER, SELFPAY ==
[2025-02-22 14:36] LABS: Add Manual Diff / Slide Review NO; Hematocrit 39.0 % (36-46); Hemoglobin 12.6 g/dL (12.0-16.0); Lymphocytes Absolute Auto 2800 /uL (1100-4500); Mean Corpuscular HGB Conc 32.3 % (30-36); Mean Corpuscular Hemoglobin 25.1 PG (26-34); Mean Corpuscular Volume 77.8 fL (80-100); Platelet Count 386 X10^3/uL (150-400)
[2025-02-22 14:47] LABS: Hemoglobin A1C% w Est Avg Glu 6.6 % (4.0-6.0)
[2025-02-22 15:02] LABS: Iron 49 ug/dL (37-170)
== END ==
PROVIDERS: PCP Family Medicine; Referring Provider Family Medicine; Visit Provider Family Medicine
DX: E11.65 Type 2 diabetes mellitus with hyperglycemia (principal); D64.9 Anemia, unspecified
CPT/HCPCS: 36415; 83036; 83540; 85025